=== PATIENT | female | born 1975 | race African-American/Black ===

== ENCOUNTER 2016-04-24 12:51 | Inpatient (IN) ==
--- NOTE | 2016-04-24 14:27 | PROVIDER DOCUMENTATION ---
Addendum entered and electronically signed by Brian Addison CRNP 19:02: Progress - PLAN OF CARE/RESULTS Progress/Plan/Lab Results: spoke with Dr. Prieto and he would like to wait and have Dr. Hughes place central line. - CONSULTS/PCP/HOSPITALIST Notification #1 *Consult/PCP/Hospitalist*: Dr. Hughes Time Discussed: 19:02 Consult Disposition: Will see in ED (will place central line in the ED.) Addendum entered and electronically signed by Brian Addison CRNP 18:26: Progress - CONSULTS/PCP/HOSPITALIST Notification #1 *Consult/PCP/Hospitalist*: Dr. Hughes Time Discussed: 18:20 Consult Disposition: other (will be in the OR for "awhile" please ask the ED physician if he is able to place.) Original Note: HPI-General Adult - General Chief Complaint: Extremity Pain Stated Complaint: HAND PAIN Time Seen by Provider: 04/24/16 13:55 Source: patient Allergies/Adverse Reactions: Patient Allergies Allergy/AdvReac Type Severity Reaction Status Date / Time No Known Allergies Allergy Verified 04/24/16 13:30 Home Medications: Home Medication List Medication Instructions Recorded Confirmed Last Taken Type Lisinopril 40 mg PO BID 10/10/14 04/24/16 04/24/16 History Clonidine [Catapres] 0.1 mg PO BID 11/08/14 04/24/16 04/24/16 History Hydrocodone/APAP 7.5 mg/325 mg 1 each PO Q6H PRN PRN #14 tablet 04/01/16 1 Week Ago Rx [[place]-7.5] Insulin Glargine [Lantus] 50 unit SUBQ QHS 04/24/16 04/24/16 2 Weeks Ago History - History of Present Illness -Gen Adult Nature of Presenting Problems: 40 year old AAF with DM, dialysis presents with c/o pain and purple lesions to right palm and bilateral fingers. pt reports swelling developed today with increased pain. pt reports she recently fractures her left ankle and is awaiting pinning by orthopedics. pt denies trauma. Location of Pain/Injury: reports: hand(s) (right hand) Pain Radiation: reports: no radiation Quality of Pain: reports: aching, dull Severity: reports: mild Onset/Duration: reports: 2 days ago, 3 days ago Timing: reports: still present, constant, getting worse Context/Activities at Onset: reports: none Review of Systems - Adult - REVIEW OF SYSTEMS - ADULT Constitutional: reports: no symptoms reported. denies: chills, fever, fatique Eyes: reports: no symptoms reported. denies: discharge, blurred vision, double vision Ears, Nose, Mouth & Throat: reports: no symptoms reported. denies: ear discharge, ear pain, nose pain, loose teeth, throat pain, throat swelling Cardiovascular: reports: no symptoms reported. denies: chest pain, heart murmur , irregular heart rate, palpitations, poor circulation, syncope Respiratory: reports: no symptoms reported. denies: chronic cough, cough, shortness of breath, wheezing Gastrointestinal: reports: see HPI. denies: abdominal pain, diarrhea, nausea, vomiting Genitourinary: reports: no symptoms reported. denies: dysuria, hematuria, urgency Musculoskeletal: reports: no symptoms reported. denies: bone pain, joint pain, joint swelling, neck pain Integumentary: reports: see HPI, skin sores/ulcer (right hand). denies: hives, hair loss, itching, mole changes, nail changes, rash, skin thickening Neurological: reports: no symptoms reported. denies: ataxia, numbness, seizure , tremors Psychiatric: reports: no symptoms reported Endocrine: reports: no symptoms reported Hematologic/Lymphatic: reports: no symptoms reported Allergic/Immunologic: reports: no symptoms reported All Other Systems: Reviewed and Negative Past History - Adult - PAST MEDICAL HISTORY-ADULT Review of Records: reports: Old Records Reviewed, Nursing Assessment Review, Medications Reviewed, Social history reviewed & non-contributory. Major Childhood Illnesses: reports: denies history Cardiovascular: reports: cardiac disease, CHF, HTN Respiratory: reports: asthma Gastrointestinal: reports: GERD Obstetrical/Gynecological: reports: denies history Genitourinary: reports: dialysis, kidney disease (CKD) Musculoskeletal: reports: other (right BKA) Neurological: reports: denies history Endocrine/Immune: reports: Diabetes Diabetes Type: Type 1 Diabetes controlled by:: Insulin Dependent Other Conditions: reports: denies history - PRIOR SURGERIES/PROCEDURES Surgical/Procedure History: reports: tonsillectomy, other (ear sx/dialysis shunt /BKA right leg) - PRIOR HOSPITALIZATIONS Prior Hospitalizations: reports: for other non-related - IMMUNIZATION STATUS Childhood Immunizations: See Nurse Assessment Flu Vaccine: See Nurse Assessment - FAMILY HISTORY Family History: reviewed, not pertinent - SOCIAL HISTORY Smoking: quit greater than 1 year, cigarettes Substance Use: none/never Alcohol Use Frequency: never Physical Exam-General - PHYSICAL EXAM-ADULT Initial Vital Signs Reviewed: Yes - CONSTITUTIONAL General Appearance: appears well, alert, moderate distress. negative: no apparent distress, mild distress, severe distress, cachetic, lethargic, slow to respond, obtunded, combative - EYES Eyes: pink conjunctivae. negative: conjuctival exudate, pale conjunctivae, sclera injected, scleral icterus, subconjunctival hemorrhage - HEAD, EARS, NOSE, MOUTH & THROAT HENMT: normocephalic/atraumatic, moist mucous membranes - NECK Neck: non-tender, full range of motion, supple, normal inspection. negative: C- spine tenderness, limited range of motion, tender lateral, tender midline - RESPIRATORY Respiratory: chest non-tender, lungs clear, normal breath sounds, no pleuratic chest pain, no respiratory distress, no accessory muscle use. negative: respiratory distress, decreased breath sounds, accessory muscle use, crackles, rales, rhonchi, stridor, wheezing - CARDIOVASCULAR Cardiovascular: normal peripheral pulses, regular rate, rhythm, no edema, no gallop, no JVD, no murmur - CHEST (BREASTS) Chest/Breast: deferred - GASTROINTESTINAL (ABDOMEN) Abdominal Exam: normal bowel sounds, non tender, soft. negative: distended, guarding, rigid, rebound, McBurney's point tenderness, Bearden's sign, obturator sign, prominent aortic pulsations, psoas, Rovsing's sign - GENITOURINARY Female Genitalia/Pelvic Exam: deferred Rectal Exam: deferred Hemoccult Exam: deferred - LYMPHATIC Lymphatic: no adenopathy - MUSCULOSKELETAL Back Exam: normal inspection, no CVA tenderness, no vertebral tenderness. negative: CVA tenderness, decreased range of motion, swelling, vertebral tenderness Extremity: normal capillary refill, pelvis stable, deformity, erythema (right anterior digit swelling), pulse deficit (decreased ulnar/radial pulses to right upper extremity, able to obtain with doppler), pedal edema (left lower), swelling, tenderness, other (right lower extremity BKA with; left ankle with swelling/tenderness/deformity, circulation, sensation intact, decreased ROM.). negative: non-tender, normal gait (pt has been using a wheelchair since left ankle), normal inspection, no pedal edema, no calf tenderness, abnormal NV exam , calf tenderness, inflammation, joint effusion, slow capillary refill Peripheral Pulses: radial (R): 1+ (obtained via doppler), radial (L): 3+, dorsalis-pedis (R): 3+, dorsalis-pedis (L): 0 (right BKA) - SKIN Integumentary: normal color, normal turgor, warm/dry, embolic lesions (right 2nd , 3rd, 4th distal digits, tenderness with palpatation, diffuse swelling of the hand/fingers.), swelling (right hand), tenderness (right hand), other (bruit/ thrill palpatated to right upper extremity dialysis shunt) - NEUROLOGIC Neurologic: grossly normal. negative: focal weakness, motor weakness, sensory deficit - PSYCHIATRIC Psych/Mental Status: normal mood/affect, normal thought content, normal thought process, oriented x 3 Progress - PLAN OF CARE/RESULTS Progress/Plan/Lab Results: Laboratory Tests 04/24/16 04/24/16 04/24/16 15:52 15:52 15:52 WBC 11.73 H RBC 3.28 L Hgb 10.4 L Hct 32.3 L MCV 98.5 MCH 31.7 H MCHC 32.2 L RDW Std Deviation 13.7 Plt Count 342 MPV 10.1 Immature Gran % (Auto) 0.3 Neut % (Auto) 76.4 H Lymph % (Auto) 12.0 L [place] % (Auto) 6.9 Eos % (Auto) 4.1 Baso % (Auto) 0.3 Immature Gran # (Auto) 0.03 Neut # (Auto) 8.97 H Lymph # (Auto) 1.41 [place] # (Auto) 0.81 H Eos # (Auto) 0.48 Baso # (Auto) 0.03 PT INR PTT (Actin FS) D-Dimer Sodium 135 L Potassium 5.0 Chloride 92 L Carbon Dioxide 19 L Anion Gap 24 BUN 62 H Creatinine 10.4 H* Estimated GFR/1.73 m2 5 BUN/Creatinine Ratio 6 Glucose 69 L Calculated Osmolality 286 Calcium 9.2 Total Bilirubin 0.35 AST 9 L ALT 8 L Alkaline Phosphatase 103 Creatine Kinase 42 Troponin T Total Protein 8.2 Albumin 3.2 L Globulin 5.0 Albumin/Globulin Ratio 0.6 Plasma Lactate 1.3 Urine Source Urine Color Urine Turbidity Urine pH Ur Specific [place] Urine Protein Ur Glucose (Stick) Ur Ketones (Stick) Urine Blood Urine Nitrite Urine Bilirubin Urobilinogen Dipstick Urine Leukocytes 04/24/16 04/24/16 04/24/16 15:52 15:52 15:52 WBC RBC Hgb Hct MCV MCH MCHC RDW Std Deviation Plt Count MPV Immature Gran % (Auto) Neut % (Auto) Lymph % (Auto) [place] % (Auto) Eos % (Auto) Baso % (Auto) Immature Gran # (Auto) Neut # (Auto) Lymph # (Auto) [place] # (Auto) Eos # (Auto) Baso # (Auto) PT 11.3 INR 1.07 PTT (Actin FS) 29.3 D-Dimer 1.12 H Sodium Potassium Chloride Carbon Dioxide Anion Gap BUN Creatinine Estimated GFR/1.73 m2 BUN/Creatinine Ratio Glucose Calculated Osmolality Calcium Total Bilirubin AST ALT Alkaline Phosphatase Creatine Kinase Troponin T 0.124 H Total Protein Albumin Globulin Albumin/Globulin Ratio Plasma Lactate Urine Source Urine Color Urine Turbidity Urine pH Ur Specific [place] Urine Protein Ur Glucose (Stick) Ur Ketones (Stick) Urine Blood Urine Nitrite Urine Bilirubin Urobilinogen Dipstick Urine Leukocytes 04/24/16 17:23 WBC RBC Hgb Hct MCV MCH MCHC RDW Std Deviation Plt Count MPV Immature Gran % (Auto) Neut % (Auto) Lymph % (Auto) [place] % (Auto) Eos % (Auto) Baso % (Auto) Immature Gran # (Auto) Neut # (Auto) Lymph # (Auto) [place] # (Auto) Eos # (Auto) Baso # (Auto) PT INR PTT (Actin FS) D-Dimer Sodium Potassium Chloride Carbon Dioxide Anion Gap BUN Creatinine Estimated GFR/1.73 m2 BUN/Creatinine Ratio Glucose Calculated Osmolality Calcium Total Bilirubin AST ALT Alkaline Phosphatase Creatine Kinase Troponin T Total Protein Albumin Globulin Albumin/Globulin Ratio Plasma Lactate Urine Source CLEAN CATCH Urine Color ORANGE Urine Turbidity HAZY Urine pH 8.5 Ur Specific [place] 1.011 Urine Protein 200 A Ur Glucose (Stick) NEGATIVE Ur Ketones (Stick) NEGATIVE Urine Blood SMALL A Urine Nitrite NEGATIVE Urine Bilirubin NEGATIVE Urobilinogen Dipstick NORMAL Urine Leukocytes LARGE A Orders Category Date Time Status Cardiac Monitoring DIRECTED Care 04/24/16 14:25 Active Finger Stick Blood Sugar (ED) DIRECTED Care 04/24/16 14:25 Active Nursing- MD Consult Request ROUTINE Care 04/24/16 17:27 Active Nursing- MD Consult Request ROUTINE Care 04/24/16 17:28 Active Saline Loc NOW Care 04/24/16 14:25 Active MD [Physician/Provider Consults] Routine Cons 04/24/16 17:26 Ordered MD [Physician/Provider Consults] Routine Cons 04/24/16 17:27 Ordered PICC Line Consult Routine Cons 04/24/16 15:41 Active cxr [CHEST-2 VIEWS] [RAD] Stat Exams 04/24/16 14:26 Completed BLOOD CULTURE [BLDCUL] Stat Lab 04/24/16 13:52 Results CBC WITH ELECTRONIC DIFF [HEME] Stat Lab 04/24/16 15:52 Completed CK PROFILE [SP CHEM] Stat Lab 04/24/16 15:52 Completed COMPREHENSIVE METABOLIC PANEL [CHEM] Stat Lab 04/24/16 15:52 Completed D-DIMER [CHEM] Stat Lab 04/24/16 15:52 Completed LACTATE, PLASMA [CHEM] Stat Lab 04/24/16 15:52 Completed PROTIME WITH INR [COAG] Stat Lab 04/24/16 15:52 Completed PTT [COAG] Stat Lab 04/24/16 15:52 Completed TROPONIN T Stat Lab 04/24/16 15:52 Completed URINALYSIS W/POSS RFLX CULT [URINALYSIS] Stat Lab 04/24/16 17:23 Results URINE DRUG SCREEN Stat Lab 04/24/16 17:23 Received Hydrocodone/APAP 7.5 mg/325 mg [[place]-7.5] Med 04/24/16 17:07 Discontinued 1 each .ROUTE .STK-MED ONE Hydrocodone/APAP 7.5 mg/325 mg [[place]-7.5] Med 04/24/16 17:06 Discontinued 1 each PO NOW ONE Pulse Oximetry Stat Oth 04/24/16 14:25 Active EKG [EKG] Stat Ther 04/24/16 14:25 Ordered Echo Spec/Color Dop W/O Contra [CV] Stat Ther 04/24/16 15:51 Ordered Vital Signs - 24 hr 04/24/16 04/24/16 12:53 17:03 Temperature 98.3 F Pulse Rate 82 81 Respiratory 18 21 Rate Blood Pressure 206/90 195/96 O2 Sat by Pulse 100 99 Oximetry - XRAY 1 XRAY Study: Chest Impression: Abnormal (cardiomegaly with pulmonary vascular congestion per Dr. Murphy) - CONSULTS/PCP/HOSPITALIST Notification #1 *Consult/PCP/Hospitalist*: Dr. Hughes (general surgery) Time Discussed: 17:36 Consult Disposition: other (is currently in the OR, left message to call ED for consult/central line placement) Departure - Departure Time of Disposition Order: 17:24 DIAGNOSIS: Pain in finger of both hands Disposition: ADMITTED INPATIENT 09 Certified Medical Emergency: Emergent Condition: Stable Referrals: Sonu Johns [Primary Care Provider] - Attestation - Physician/ THU Attestation Patient care was provided by Advanced Practice Provider:: Yes Advanced Practice Provider:: Brian Addison Advanced Practice Provider documentation review:: The Mid-level provider documentation, treatment plan and medical decision making was reviewed by the physician who agrees with all treatment and medical decision making by the MLP. The physician spent face to face time with patient:: Yes (@[phone])
--- NOTE | 2016-04-24 15:00 | ED EKG INTERP ---
EKG Interpretation - EKG Time of EKG reading by physician:: 14:45 EKG Read and Signed by:: Jeff Mckeon EKG Interpretation (*Must complete 3 of following elements*): Normal Rate: 82 Rhythm: NSR [place]: normal QRS: normal CT Interval: normal ST Wave: normal Attestation - Scribe Verification/Attestation Scribe:: [place] Acting as Scribe for:: Jeff Mckeon Scribe documention review:: This chart was documented by a scribe and accurately reflects the service the provider performed and the decisions made by the provider. Physician Attestation - Physician Attestation I, the provider, attest to the following statement:: Jeff Mckeon Physician documentation Attestation:: This documentation recorded by the scribe accurately reflects the service I personally performed and the decisions made by me.
--- NOTE | 2016-04-24 15:09 | Diag Imaging Result Document ---
PROCEDURE NAME: CHEST-2 VIEWS - 04/24/2016 CHEST X-RAY 2 VIEWS: COMPARISON: 11/16/2015. FINDINGS: Stable cardiomegaly and pulmonary vascular congestion. Stable linear atelectasis in the left mid lung. No pneumothorax or pleural effusion. IMPRESSION: Cardiomegaly with pulmonary vascular congestion.
[2016-04-24 16:15] LABS: MANUAL DIFF NEEDED? NO
[2016-04-24 16:20] LABS: BASO% 0.3 % (0.0-0.8); EOS# 0.48 X1000 (0.0-0.7); EOS% 4.1 % (0.0-10.0); HEMATOCRIT 32.3 % (37.0-47.0); HEMOGLOBIN 10.4 g/dL (12.0-16.0); IMM GRAN# 0.03 X1000 (0.0-0.04); IMM GRAN% 0.3 % (0.0-0.5); LYMPH# 1.41 X1000 (1.2-3.4); MCH 31.7 PG (27-31); MCHC 32.2 g/dL (33-37); MCV 98.5 FL (81-99); MONO# 0.81 X1000 (0.11-0.59); MONO% 6.9 % (1.7-9.3); MPV 10.1 FL (7.4-10.4); NEUT% 76.4 % (42.2-75.2); PLT 342 X1000 (130-400); RBC 3.28 XMIL (4.2-5.4)
[2016-04-24 16:29] LABS: INR 1.07; PROTIME 11.3 Seconds (9.2-11.7); PTT 29.3 Seconds (22.0-36.0)
[2016-04-24] MEDS ORDERED: NORCO-7.5 PO ONE (17:06)
[2016-04-24] MEDS ORDERED: NORCO-7.5 ONE (17:07)
[2016-04-24 17:11] LABS: ALBUMIN 3.2 g/dL (3.5-5.0); CALCIUM 9.2 mg/dL (8.8-10.2); TOTAL PROTEIN 8.2 g/dL (6.3-8.3)
[2016-04-24 17:19] LABS: TOTAL BILIRUBIN 0.35 mg/dL (0.20-1.00)
[2016-04-24 17:24] LABS: URINE SOURCE CLEAN CATCH
[2016-04-24 17:31] LABS: BILIRUBIN URINE NEGATIVE (NEGATIVE); BLOOD URINE SMALL (NEGATIVE); COLOR ORANGE; GLUCOSE URINE NEGATIVE (NEGATIVE); LEUKOCYTES URINE LARGE (NEGATIVE); NITRITE URINE NEGATIVE (NEGATIVE); PH URINE 8.5; PROTEIN URINE 200 mg/dL (NEGATIVE); SP GRAVITY URINE 1.011; TURBIDITY URINE HAZY (CLEAR); UROBILINOGEN URINE NORMAL (NORMAL)
[2016-04-24 17:32] LABS: URINE MICRO REVIEW NEEDED? YES
[2016-04-24 17:33] LABS: UR EPITHELIAL CELLS <10 /HPF (<10); URINE BACTERIA 3+ /HPF; URINE CULTURE NEEDED? YES; URINE RBC <10 /HPF (<10); URINE WBC TNTC /HPF (<10)
[2016-04-24 17:37] LABS: UR AMPHETAMINES QUAL NONE DETECTED (NONE DETECT); UR BARBITUATES QUAL NONE DETECTED (NONE DETECT); UR BENZODIAZEPIN QUAL NONE DETECTED (NONE DETECT); UR CANNABINOIDS QUAL NONE DETECTED (NONE DETECT); UR COCAINE QUAL PRESUMPTIVE POSITIVE (NONE DETECT); UR METHADONE QUAL NONE DETECTED (NONE DETECT); UR OPIATES QUAL NONE DETECTED (NONE DETECT); UR OXYCODONE QUAL NONE DETECTED (NONE DETECT); UR PCP QUAL NONE DETECTED (NONE DETECT)
[2016-04-24 17:47] LABS: URINE CASTS NONE SEEN; URINE CRYSTALS NONE SEEN; URINE SMALL ROUND CELLS RENAL PRESENT
--- NOTE | 2016-04-24 19:02 | HISTORY AND PHYSICAL ---
PRIMARY CARE PHYSICIAN: Sonu Johns M.D. CHIEF COMPLAINT: Operable lesions in right palm and bilateral fingers. HISTORY OF PRESENT ILLNESS: This is a 40-year-old, female with a past medical history of diabetes, hypertension, and on dialysis, who presented to the emergency department complaining of pain in both hands and purple lesions, to right palm and also both bilateral fingers. Patient reports that those lesions started appearing in the last 4 weeks but today both hands started getting swollen with increase of pain so she decided to come to the emergency department today. She denies any fever, any weight loss. She denies using any IV drugs. It is important to remark that the UDS today is positive for cocaine. After asking her many times she admits to using cocaine 1-2 times per month. Also she uses marijuana. She also denies using any IV drugs. She is not complaining of any chest pain, any palpitations. She was supposed to have hemodialysis today but she decided to come to the emergency department today for this reason. The patient is being admitted for further evaluation and treatment. PAST MEDICAL HISTORY: 1. Diabetes type 2. 2. Uncontrolled hypertension. 3. End-stage renal disease on hemodialysis. PAST SURGICAL HISTORY: 1. Right [id number] amputation. 2. Ankle fracture that was seen by Dr. Benites. ALLERGIES: She denies any drug allergies. SOCIAL HISTORY: She admits to using cocaine at least twice per month, probably more, and uses marijuana. She reports that she drinks liquor 3 times per mom. She lives by herself. FAMILY HISTORY: Positive for diabetes and cancer. REVIEW OF SYSTEMS: Eleven systems were reviewed and all symptoms are related to H and P. PHYSICAL EXAMINATION: VITAL SIGNS: Temperature 98.3 degrees, heart rate 81, respiratory rate 21, blood pressure 195/86, O2 saturation 99% on room air. GENERAL EXAMINATION: This is a chronically ill-looking, also looking older than her age. female lying in bed, in no acute distress. HEENT: Head is normocephalic, atraumatic. Anicteric sclerae. Pale conjunctivae. Mucous membranes moist. NECK: Supple. No JVD noted. No carotid bruits. No lymphadenopathy. No thyromegaly. CARDIOVASCULAR: S1 and S2 heard. No murmurs, gallops, or rubs. Regular rate and rhythm. RESPIRATORY: Clear bilaterally to auscultation. No work of breathing or using accessory muscles. ABDOMEN: Soft, nontender to palpation. Bowel sounds present. No organomegaly. EXTREMITIES: Right [id number]-[id number] amputation. The left ankle is covered by dressing. NEUROLOGICAL EXAMINATION: Patient alert and oriented x3. Able to move 4 extremities. Cranial nerves 2-12 grossly normal. LABORATORY DATA: White cell count 11.73, hemoglobin 10.4, hematocrit 32.3, platelets 342,000. Platelets Z-42. BMP is remarkable for BUN 62, creatinine 10.4, and troponin 0.1 24. Urinalysis shows too numerous to count white cell count with nitrite negative about 3+. The urine is positive for cocaine. ASSESSMENT: 1. Endocarditis suspected. 2. End-stage renal disease on hemodialysis. 3. Uncontrolled hypertension. 4. Diabetes mellitus type 2. PLAN: 1. The patient is admitted to the hospital because she developed lesions in about a month suspicious for embolic phenomenon secondary to possible endocarditis. The fact that this patient is still using drugs, which she denied the first time that we asked her, raises the possibility of infection secondary to either IV drug abuse or because of hemodialysis 3 times per week. In any case what we are going to do is order blood cultures x2. We are going to get an IV access, in this case a central line because the patient is hard to stick. We are going to start vancomycin after we get blood cultures. Also we are going to order a transesophageal echo to see if there is any vegetation. 2. For uncontrolled blood pressure, we are going to use hydralazine and labetalol p.r.n. 3. For diabetes mellitus, we will continue with Lantus and we will add Humalog sliding scale insulin. 4. For end-stage renal disease on hemodialysis, we will consult Dr. Chadwick to restart hemodialysis here in the hospital. 5. For the fracture of the left ankle, we will consult Wound Care.
[2016-04-24 19:24] LABS: HEMOGLOBIN A1C 4.4 % (4.8-6.0)
--- NOTE | 2016-04-24 20:10 | OPERATIVE NOTE ---
PROCEDURE DATE: 04/24/2016 PREOPERATIVE DIAGNOSIS: 1. Phlebosclerosis. 2. Possible endocarditis. POSTOPERATIVE DIAGNOSIS: 1. Phlebosclerosis. 2. Possible endocarditis. PROCEDURES: Ultrasound-guided right femoral vein triple-lumen catheter placement. SURGEON: Aguilar Hughes MD. TEACHER VISUALLY IMPAIRED: None. ANESTHESIA: Local administered by the surgeon. COMPLICATIONS: None at time of dictation. INTRAOPERATIVE FINDINGS: Ultrasound showed a right femoral vein of sufficient size to accommodate a central line. Ultrasound also showed the wire going into the vein. BRIEF HISTORY: The patient is a 40-year-old, female presented with pain in her finger. She is currently being worked up for possible endocarditis with septic possibility. They had a difficult time finding venous access on her for IV fluids and antibiotics. Therefore. I was asked to place a central line. Given the patient's possibility of endocarditis, I elected to not use her neck, potential contamination near the cardiac valves. She had previous amputation of her right leg and had a dilated vein there and felt that was the safest approach. The risks, benefits, alternatives for procedure were discussed. She voiced understanding and wished to proceed with procedure. DESCRIPTION OF PROCEDURE: After informed consent was obtained, patient remained in her ER bed. The right groin was prepped and draped in sterile fashion. After the formal time-out, we used the ultrasound to identify the right femoral vein. It was a compressible, no obvious Deep venous thromboses. We used local anesthetic to anesthetize the skin after prepping and draping the area in a sterile fashion. After using local anesthetic, I was able to cannulate the right femoral vein and pass a wire. I was able to see on ultrasound the wire passing into the vein. I then dilated up the tract in the typical Seldinger technique and placed the central line in place. All ports aspirated and flushed blood easily. We secured it in place and the nurse place a sterile dressing.
[2016-04-24] MEDS ORDERED: APRESOLINE IV PRN (20:31)
[2016-04-24] MEDS ORDERED: VANCOMYCIN IV PER PHARMACY MISC SCH (20:31)
[2016-04-24] MEDS ORDERED: HUMALOG SUBQ ONE (20:31)
[2016-04-24] MEDS ORDERED: VANCOMYCIN 1 GM/NS 250 ML IV ONE (21:00)
[2016-04-24] MEDS: D50W SYRINGE ONE (21:23)
[2016-04-24] MEDS: LANTUS SUBQ SCH (21:42)
[2016-04-24] MEDS: PRINIVIL PO SCH (21:58)
[2016-04-24] MEDS: NORCO-7.5 PO PRN (21:58)
[2016-04-24] MEDS: HEPARIN SUBQ SCH (21:59)
[2016-04-24] MEDS: CATAPRES PO SCH (21:59)
[2016-04-25] MEDS: HEPARIN SUBQ SCH ×3 (04:52→20:40)
[2016-04-25] MEDS: NORCO-7.5 PO PRN ×2 (04:59→14:34)
[2016-04-25] MEDS: ZOFRAN IV PRN (04:59)
[2016-04-25] MEDS: D50W SYRINGE ONE (05:00)
[2016-04-25] MEDS ORDERED: D50W SYRINGE ONE (05:08)
[2016-04-25] MEDS ORDERED: PNEUMOVAX 23 IM ONE (05:40)
[2016-04-25] MEDS ORDERED: FLUZONE QUAD 2016-2017 SYRINGE IM ONE (05:40)
[2016-04-25 06:04] LABS: MANUAL DIFF NEEDED? NO
[2016-04-25] MEDS: PRILOSEC PO SCH (06:07)
[2016-04-25 06:46] LABS: BASO% 0.2 % (0.0-0.8); CALCIUM 8.8 mg/dL (8.8-10.2); EOS% 4.9 % (0.0-10.0); HEMATOCRIT 27.5 % (37.0-47.0); HEMOGLOBIN 8.7 g/dL (12.0-16.0); IMM GRAN# 0.03 X1000 (0.0-0.04); IMM GRAN% 0.2 % (0.0-0.5); LYMPH# 1.42 X1000 (1.2-3.4); LYMPH% 11.6 % (20.5-51.1); MCH 31.6 PG (27-31); MCHC 31.6 g/dL (33-37); MONO% 5.7 % (1.7-9.3); MPV 10.2 FL (7.4-10.4); NEUT% 77.4 % (42.2-75.2); PLT 331 X1000 (130-400); POTASSIUM 5.1 mmol/L (3.5-5.1); RBC 2.75 XMIL (4.2-5.4)
[2016-04-25] MEDS ORDERED: NS 2,000 ML MISC PRN (06:57)
[2016-04-25] MEDS ORDERED: TIGHT: 0.2 ML/HR MISC PRN (06:57)
[2016-04-25] MEDS ORDERED: HEPARIN IV PRN (06:57)
[2016-04-25] MEDS ORDERED: VANCOMYCIN 1 GM/NS 250 ML IV SCH (07:00)
[2016-04-25] MEDS ORDERED: NS 2,000 ML ONE (09:36)
[2016-04-25] MEDS ORDERED: HEPARIN ONE (09:36)
--- NOTE | 2016-04-25 11:05 | CONSULTATION ---
DATE OF CONSULTATION: 04/25/2016 INDICATION FOR THE CONSULTATION: Possible endocarditis. HISTORY OF PRESENT ILLNESS: Ms Wheat is a 40-year-old black female, who has a history of end- stage renal disease and poor control of her blood pressure. She presented for complaints of right hand pain and swelling and lesions towards the distal portions of her digits. She reports the sores started appearing around 3-4 days ago. She has had no fevers. She reports no IV drug use, but she does participate in dialysis 3 times a week. She has been using marijuana and cocaine on a periodic basis. She uses cocaine via snorting. She reports no episodes of fevers, no coughs, no other infectious type symptoms. PAST MEDICAL HISTORY: 1. Type 2 diabetes. 2. Poor control of her blood pressure. 3. End-stage renal disease. SOCIAL HISTORY: Positive for cocaine use, marijuana use. She drinks liquor occasionally. Lives alone. FAMILY HISTORY: Significant for diabetes. REVIEW OF SYSTEMS: A 10 system review of systems is negative, except for those mentioned in the HPI. PHYSICAL EXAMINATION: Vital Signs: During this hospitalization she has been afebrile. Blood pressure is 163/70, heart rate is 70. General: No acute distress. She is somewhat ill appearing, appears older than stated age. HEENT: Oropharynx is moist. Poor dentition. Eye examination shows pink conjunctivae, white sclerae. Neck: Examination shows no obvious thyromegaly or thyroid tenderness. Cardiovascular: She is in a regular rate and rhythm. She has no obvious murmurs. She has no S3. She has bilateral lower extremity edema, left worse than right. She does have a chronic left ankle injury. Chest exam: Has some bilateral basilar rales. No increased work of breathing. Abdomen: Soft, nontender, nondistended. She has no obvious organomegaly. Skin Exam: Warm and dry throughout. She does have multiple excoriations in her bilateral upper extremities. She has some small, roughly 0.5 cm or so diameter, darkened lesions that appear embolic in etiology to her distal fingertips of the right hand. Neurological: She is moving all extremities well. Cranial nerves 2-12 are intact. Psychiatric: Alert, oriented and pleasant. She has normal mood and affect. PERTINENT DATA: Chest x-ray shows evidence for cardiomegaly and pulmonary vascular congestion. Her laboratory data demonstrates a white count of 12.2, hematocrit 27.5, platelet count is 331. She has a slight left shift. Sodium is 134, potassium 5.1, BUN 71, creatinine 10.4. Her cardiac enzymes were checked yesterday and were 0.124. They have been chronically positive over several checks in 2014, 2015 and 2017. She was positive for cocaine. ASSESSMENT: 1. Possible endocarditis. 2. End-stage renal disease. 3. Illicit drug use. PLAN: We will proceed with transesophageal echo tomorrow. We will be checking a transthoracic echo today. Risks, benefits and alternatives of procedure have been explained to the patient. She agrees to proceed. She will be made n.p.o. for the study tomorrow.
[2016-04-25] MEDS: PRINIVIL PO SCH ×2 (14:34→20:40)
[2016-04-25] MEDS: CATAPRES PO SCH ×2 (14:34→20:41)
--- NOTE | 2016-04-25 15:33 | CONSULTATION ---
lDATE OF CONSULTATION: 04/25/2016 REASON FOR ADMISSION: Question of endocarditis, questionable embolic phenomenon to the hands, uncontrolled blood pressure. REASON FOR CONSULTATION: End-stage renal disease. CONSULTING PHYSICIAN: Dr. Mccormick. HISTORY OF PRESENT ILLNESS: This is a 40-year-old female, well known to our service for end-stage renal disease on hemodialysis on a Friday, , Friday schedule. She presented to the emergency room secondary to pain in bilateral hands along with purple, painful lesions to the finger tips and palms of the hands. The patient states that these areas have been present for at least a month. She stated that her pain got worse and so she came to the emergency room. She denies any headache, dizziness, any chest pain, any shortness of breath. She denies any fever, any night sweats. She does have a history of positive cocaine use. This is not IV use. This is nostril. She has had issues with her blood sugars being low while she has been in the hospital, even down below 30 at times. She underwent an echocardiogram on admission. She is to undergo a CLAUDY tomorrow. We have been asked to see her for her hemodialysis management. PAST MEDICAL HISTORY: 1. Diabetes type 2, uncontrolled. 2. Hypertension. 3. End-stage renal disease on hemodialysis. 4. Iron deficiency anemia. 5. Anemia secondary to ESRD 6. Protein calorie malnutrition. 7. Hyperparathyroidism. 8. Osteodystrophy. 9. Hyperphosphatemia. PAST SURGICAL HISTORY: She has had a previous tunnel dialysis catheter to the chest wall. She has a current AV fistula to the right upper arm. She has had a right BKA. She has had debridement of the BKA secondary to infection. She has had a tonsillectomy. ALLERGIES: No known drug allergies. HOME MEDICATIONS: Lisinopril, clonidine, [place], Lantus. FAMILY HISTORY: Diabetes and cancer. SOCIAL HISTORY: Positive for cocaine and marijuana use. Positive for ETOH. Denies smoking. REVIEW OF SYSTEMS: Pertinent positives noted above. PHYSICAL EXAMINATION: Vital Signs: Temperature 98.6 degrees, pulse 70, respiratory rate 18, blood pressure 163/70. Intake and output: Intake 240 mL. Output not measured. General: This is a chronically ill-appearing, middle-aged female, sitting up in bed, currently eating. She is awake and alert, in no acute distress. Unable to give me an appropriate history. HEENT: Normocephalic, atraumatic. ROSA MARIA, conjunctivae pale. Oral mucosa moist. Dentition fair. Neck: Supple. There is no JVD. Trachea midline. Cardiovascular: Regular rate and rhythm. There is no murmur or gallop appreciated. No rub noted. Pulmonary: She has equal excursion. She is clear bilaterally. There is no increased work of breathing. She is on room air. Abdomen: Soft. Positive bowel sounds. Nontender. : Not inspected. She has minimal void. Hemodialysis assist. Extremities: Right BKA. Left ankle with a dressing. No pretibial edema. Integumentary: Skin is warm and dry otherwise without rash or lesion, aside from the above noted purple lesions to finger tips and palms of the hand. Neurologic: Grossly nonfocal. She wears glasses. LAB DATA: WBC of 12.2, hemoglobin 8.7, hematocrit 27.5, platelet count of 331, 000. Sodium 134, potassium 5.1, chloride 91, CO2 20, BUN 71, creatinine 2.4, calcium 8.8. Her original echo has not been read yet. UDS positive for cocaine. Urinalysis with 2+ protein, large leukocytes, too numerous to count white blood cells. IMAGING: Chest x-ray: Cardiomegaly and pulmonary vascular congestion. This was prior to dialysis. ASSESSMENT AND PLAN: 1. End-stage renal disease on hemodialysis. She normally dialyzes on a Friday, Friday, Friday schedule. She did not dialyze yesterday. We will plan to dialyze her tomorrow to get her back on schedule. 2. Electrolytes, acid-base balance, anemia. These were stable prior to dialysis. We will check labs again in the morning and adjust the bath as needed. 3. Fluid volume. She is not overloaded. 4. Blood pressure remains mildly elevated. She has Apresoline p.r.n. Her Prinivil was already restarted. 5. If CLAUDY is negative, will need vascular studies of right arm. rg Seen, data reviewed, discussed with Keith Rivers on 04/25/16. I agree with the above assessment and plan of care. rg Dictated by PHILL Chowdary for Emilio Chadwick MD [facility]
[2016-04-25] MEDS: SANTYL OINT TOP SCH (18:04)
--- NOTE | 2016-04-25 19:02 | ECHO REPORT ---
ORDER DATE: 04/24/2016 INTERPRETING PHYSICIAN: Dr. Conway REQUESTING PHYSICIAN: CLINICAL INDICATIONS: A 40-year-old female; hemodialysis, diabetes, hypertension. M-MODE MEASUREMENTS: Right ventricle: 3.1 cm. Left ventricle end diastole: 4.1 cm. Left ventricle end systole: 2.7 cm. Posterior wall: 1.2 cm. Interventricular septum: 1.1 cm. Left atrium: 4.2 cm. Aortic root: cm. SUMMARY OF 2-DIMENSIONAL IMAGING: The right ventricle is mildly enlarged. The left ventricle shows normal function. Ejection fraction 60%. The chamber is markedly dilated. The left atrium is mildly enlarged. The aortic valve has 3 cusps. They open normally. Color flow mapping indicates a mild degree of regurgitation. The pulmonic valve looks normal. Color flow mapping indicates a mild degree of regurgitation. The tricuspid valve looks normal. Color flow mapping indicates a mild degree of regurgitation. The inferior vena cava is mildly enlarged. Pulmonary pressure estimated at 53 mmHg. The mitral valve looks normal. Color flow mapping unremarkable. Pulse wave Doppler of mitral inflow is normal. Tissue Doppler of septal and lateral mitral annulus averages 7 cm per second. Pulmonary venous flow shows some predominance of the diastolic component. There is no pericardial effusion, masses or thrombus. This study was of very good quality. IMPRESSION: In summary, this study shows: 1. Significantly enlarged left ventricle with normal function. Ejection fraction is 60%. 2. No evidence of significant diastolic dysfunction. 3. Mild degree of tricuspid regurgitation. Pulmonary pressure 53 mmHg. 4. Very mild degree of pulmonic and aortic regurgitation. This study is consistent with a history of patient being on dialysis.
[2016-04-25] MEDS: LANTUS SUBQ SCH (20:42)
[2016-04-26] MEDS: DEMEROL IV PRN ×5 (01:30→22:14)
[2016-04-26 03:41] LABS: MANUAL DIFF NEEDED? NO
[2016-04-26 03:48] LABS: BASO% 0.3 % (0.0-0.8); EOS# 0.56 X1000 (0.0-0.7); EOS% 5.3 % (0.0-10.0); HEMATOCRIT 28.3 % (37.0-47.0); LYMPH# 1.44 X1000 (1.2-3.4); LYMPH% 13.6 % (20.5-51.1); MCH 31.9 PG (27-31); MCHC 31.8 g/dL (33-37); MCV 100.4 FL (81-99); MONO# 1.01 X1000 (0.11-0.59); MONO% 9.6 % (1.7-9.3); MPV 9.8 FL (7.4-10.4); NEUT% 71.2 % (42.2-75.2); PLT 336 X1000 (130-400); RBC 2.82 XMIL (4.2-5.4)
[2016-04-26 03:59] LABS: CALCIUM 8.7 mg/dL (8.8-10.2); POTASSIUM 5.7 mmol/L (3.5-5.1)
[2016-04-26] MEDS: PRILOSEC PO SCH ×2 (05:30→06:56)
[2016-04-26] MEDS: HEPARIN SUBQ SCH ×3 (05:30→20:17)
--- NOTE | 2016-04-26 05:52 | PROGRESS NOTE ---
DATE: 04/25/2016 SUBJECTIVE: The patient is feeling fine. Denies any fever, chills, nausea, or vomiting. She reports still feeling tired. OBJECTIVE: Vital Signs: Temperature 98.6 degrees, heart rate 81, respiratory rate 16, blood pressure 165/66. O2 saturation 100% on room air. General Examination: This is a chronically ill appearing, and also looking older than his age, 40-year-old female lying in bed, in no acute distress. HEENT: Head is normocephalic, atraumatic. Anicteric sclerae and pale conjunctivae. Mucous membranes moist. Neck: Was supple. No jugular venous distention noted. No carotid bruits. No lymphadenopathy. No thyromegaly. Cardiovascular Examination: S1, S2 heard. No murmurs, gallops, or rubs. Regular rate and rhythm. Respiratory Examination: Clear bilaterally to auscultation. No work of breathing or using accessory muscles. Abdomen: Soft, nontender to palpation. Bowel sounds present. No organomegaly. Extremities: No clubbing, cyanosis, or edema. Peripheral pulses present in both legs. The left is covered by a dressing and there is a right [id number] amputation. Neurological Examination: Patient alert and oriented x3. Moves 4 extremities. LABORATORY DATA: None from today. ASSESSMENT AND PLAN: 1. Suspected endocarditis. 2. End-stage renal disease on hemodialysis. 3. Uncontrolled hypertension. 4. Diabetes mellitus type 2. The patient was admitted to the hospital because of history of drug abuse and also some lesions of both fingers and palm, very suspicious for endocarditis so [employer] was consulted. The patient is going to have transesophageal echo tomorrow. Also, blood cultures are negative. At least on the 1st day. Urine cultures positive for gram-positive cocci. In any case, we will see what the echocardiogram shows. Also, the urine culture shows infections. We will see what the final report shows.
[2016-04-26] MEDS: NORCO-7.5 PO PRN ×3 (07:23→20:17)
[2016-04-26] MEDS: ZOFRAN IV PRN (07:25)
--- NOTE | 2016-04-26 09:36 | PROGRESS NOTE ---
DATE: 04/26/2016 SUBJECTIVE: She is complaining of pain in the right hand. OBJECTIVE: Vital Signs: Blood pressure 165/77, heart rate 78, respiration 18, afebrile. General: She is in no distress, though she is in some pain. Skin: Warm and dry. No change in the right hand. Conjunctivae are pink. Neck: Neck veins are not distended. Heart: Regular without gallops. Lungs: Have equal breath sounds without crackles. Abdomen: Soft, nontender. Extremities: Have minimal edema. No clubbing or cyanosis. LABORATORY DATA: Sodium 134, potassium 5.7, chloride 93, bicarbonate 28, BUN 49, creatinine 7.9. IMPRESSION: Right hand pain: She did have positive blood cultures. She has a planned transesophageal echocardiogram today. I am concerned that her hand is ischemic related to her access. I will ask Dr. Contreras to examine her arm and give his opinion about whether this is ischemic. Her potassium is marginally elevated today. No intervention. Plan dialysis tomorrow.
[2016-04-26] MEDS: PRINIVIL PO SCH ×2 (09:40→20:17)
[2016-04-26] MEDS: CATAPRES PO SCH ×2 (09:40→20:17)
[2016-04-26] MEDS ORDERED: XYLOCAINE 4% TOPICAL SOLUTION ONE (09:42)
[2016-04-26] MEDS ORDERED: SODIUM CHLORIDE 0.9% 10 ML ONE (09:42)
[2016-04-26] MEDS ORDERED: HURRICAINE SPRAY (DOSE) ONE (09:42)
[2016-04-26] MEDS ORDERED: HURRICAINE SPRAY ONE (09:46)
[2016-04-26] MEDS ORDERED: NS 250 ML ONE (10:01)
[2016-04-26] MEDS ORDERED: CLAVE TWINSITE 32 IN 11959 ONE (10:01)
[2016-04-26] MEDS ORDERED: CLAVE ANES SET 100 IN 11965 ONE (10:01)
--- NOTE | 2016-04-26 11:09 | ECHO REPORT ---
ORDER DATE: 04/26/2016 PROCEDURE: Transesophageal echocardiogram. INDICATIONS: Cardiology was consulted and a transesophageal echocardiogram requested to rule out vegetation. DESCRIPTION OF PROCEDURE IN DETAIL: Patient was brought to the cardiac catheterization laboratory. Informed consent was obtained from the patient. The patient's oropharynx was anesthetized using lidocaine swish and swallow and Cetacaine spray. Anesthesia was present. Propofol was given. Please see detailed anesthesia records. A transesophageal probe was easily passed into the esophagus and ultrasound pictures were obtained. FINDINGS: 1. Normal left ventricular cavity size. Estimated ejection fraction of 55%. 2. Aortic valve leaflets are trileaflet. 3. Mitral valve was normal. There is mild mitral annular calcification. 4. Tricuspid valve was normal. 5. Pulmonic valve was normal. 6. Left atrium was normal. Left atrial appendage was normal right. Atrium was normal. 7. Descending aorta had layered plaque. 8. Doppler studies revealed there is no aortic stenosis. There is mild aortic regurgitation. 9. There is mild mitral regurgitation. 10. Trace to mild tricuspid regurgitation. 11. Mild pulmonary regurgitation. CONCLUSIONS: 1. Normal left ventricular cavity size. Estimated ejection fraction of 55%. There is mild aortic regurgitation and mild mitral regurgitation. 2. There is no vegetation or intracardiac mass or thrombus noted. 3. Left atrial appendage was normal.
[2016-04-26] MEDS ORDERED: VERSED ONE (11:18)
[2016-04-26] MEDS ORDERED: DIPRIVAN 1% ONE (11:19)
[2016-04-26] MEDS: SANTYL OINT TOP SCH (14:33)
--- NOTE | 2016-04-26 15:40 | CONSULTATION ---
DATE OF CONSULTATION: 04/26/2016 CHIEF COMPLAINT: Punctate spots of necrosis of the fingers. HISTORY: This is a 40-year-old, black female that is diabetic and has end-stage renal disease. She has had a 3-week history of some ischemic spots on her fingers. She also reports some pain. The pain is worse on the right than the left. There are a few spots on the left as well, but not to the same degree as the right. She has a fistula in the right upper arm that was constructed 2 years ago in April 2014. It has matured well and is serving her well as an access. OTHER MEDICAL PROBLEMS: Include type 2 diabetes, hypertension. PREVIOUS SURGERY: Includes a right below-knee amputation. Ankle fracture, treated by Dr. Benites, and the right brachiocephalic fistula by Dr. Contreras. MEDICATIONS: Listed. ALLERGIES: No known drug allergies. SOCIAL HISTORY: She does occasionally use cocaine and marijuana, and she does drink alcohol. FAMILY HISTORY: Pertinent for diabetes and malignancy. REVIEW OF SYSTEMS: As noted above. EXAM: Vital Signs: Afebrile. Heart rate 79, blood pressure 175/79. Lungs: Bilateral breath sounds. Heart: Regular rate rhythm. Extremities: She has a fistula in the right upper arm with a good thrill. She has a 1+ left radial pulse. I do not palpate a right radial pulse. The right hand is slightly cool. ASSESSMENT: Her fistula may have progressed to the point that she is stealing enough blood to cause symptoms in her fingers. I will get an arterial imaging of her right hand then forearm, as well as the PVRs to determine the amount of flow discrepancy in her arms.
--- NOTE | 2016-04-26 15:48 | PROGRESS NOTE ---
DATE: 04/26/2016 SUBJECTIVE: Patient reports feeling fine. No chills, no fever. OBJECTIVE: Vital Signs: Temperature 97.5 degrees, heart rate 79, respiratory rate 18, blood pressure 175/79, and O2 saturation 92% on room air. General Examination: This is a chronically ill-appearing, looking older than her age, 40-year-old, female, lying in bed in no acute distress. HEENT: Head is normocephalic, atraumatic. Anicteric sclerae and pale conjunctivae. Mucous membranes moist. Neck: Supple. No JVD noted. No carotid bruits. No lymphadenopathy. No thyromegaly. Cardiovascular exam: S1 and S2 heard. No murmurs, gallops, or rubs. Regular rate and rhythm. Respiratory exam: Clear bilaterally to auscultation. No work of breathing or using accessory muscles. Abdomen: Soft, nontender to palpation. Bowel sounds present. No organomegaly. Extremities: No clubbing, cyanosis, or edema. Peripheral pulses present in both legs. The left leg is covered by dressing. There is a right [id number] amputation. Also, there are purple lesions on both fingertips. Neurological exam: Patient alert and oriented x3. Able to move 4 extremities. Cranial nerves 2 through 12 grossly normal. LABORATORY DATA: The CBC indicates a white cell count 10.55, hemoglobin 9.0, hematocrit 28.3, platelets 336. Sodium 134, potassium 5.7, chloride 93, bicarbonate 28, BUN 49, creatinine 7.9. ASSESSMENT: 1. Suspected endocarditis. 2. End-stage renal disease on hemodialysis. 3. Uncontrolled hypertension. 4. Diabetes mellitus type 2. PLAN: The patient was admitted to the hospital for lesions in both hands very suspicious for endocarditis. We have consulted field assistant for performing transesophageal echo and results came back indicates that there is no vegetation noted on the transesophageal echo. Blood cultures: One out of three is positive for gram-positive cocci, but it could be a contaminant so will wait for the final result of blood cultures. For these lesions that this patient has on both hands, there was a concern raised by Dr. Chadwick that could be related to some problem with the IV access for hemodialysis, so he has consulted Dr. Diego Contreras in that regard. From my standpoint, if blood cultures are negative or we confirm that culture is positive for Staphylococcus epididymis and is considered a contaminant, we may discharge this patient.
[2016-04-26] MEDS: LANTUS SUBQ SCH (21:30)
[2016-04-27] MEDS: DEMEROL IV PRN ×2 (02:18→06:50)
[2016-04-27] MEDS: NORCO-7.5 PO PRN ×3 (03:45→17:39)
[2016-04-27 05:47] LABS: MANUAL DIFF NEEDED? NO
[2016-04-27 06:17] LABS: BASO% 0.3 % (0.0-0.8); EOS# 0.46 X1000 (0.0-0.7); EOS% 4.1 % (0.0-10.0); HEMATOCRIT 30.3 % (37.0-47.0); HEMOGLOBIN 9.4 g/dL (12.0-16.0); IMM GRAN# 0.02 X1000 (0.0-0.04); IMM GRAN% 0.2 % (0.0-0.5); LYMPH% 10.8 % (20.5-51.1); MCH 31.4 PG (27-31); MCV 101.3 FL (81-99); MONO# 0.91 X1000 (0.11-0.59); MONO% 8.2 % (1.7-9.3); MPV 10.3 FL (7.4-10.4); NEUT% 76.4 % (42.2-75.2); PLT 333 X1000 (130-400); RBC 2.99 XMIL (4.2-5.4)
[2016-04-27 06:18] LABS: CALCIUM 8.5 mg/dL (8.8-10.2)
[2016-04-27 06:20] LABS: POTASSIUM 6.3 mmol/L (3.5-5.1)
[2016-04-27] MEDS ORDERED: D50W SYRINGE ONE (06:39)
[2016-04-27] MEDS ORDERED: HUMULIN R ONE (06:40)
[2016-04-27] MEDS: HEPARIN SUBQ SCH ×2 (06:50→15:22)
[2016-04-27] MEDS: PRILOSEC PO SCH (06:50)
[2016-04-27] MEDS ORDERED: NS 2,000 ML MISC PRN (08:20)
[2016-04-27] MEDS ORDERED: TIGHT: 0.2 ML/HR MISC PRN (08:20)
[2016-04-27] MEDS ORDERED: HEPARIN IV PRN (08:20)
[2016-04-27] MEDS: CATAPRES PO SCH (08:33)
[2016-04-27] MEDS: PRINIVIL PO SCH (08:33)
[2016-04-27] MEDS: SANTYL OINT TOP SCH (08:34)
[2016-04-27 11:08] VITALS: BP 133/62
[2016-04-27] MEDS ORDERED: NS 2,000 ML ONE (11:32)
--- NOTE | 2016-04-27 13:50 | PROGRESS NOTE ---
DATE: 04/27/2016 SUBJECTIVE: She is still having right hand pain. OBJECTIVE: Vital Signs: Blood pressure 133/62, heart rate 72, respirations 12, afebrile. General: She is a middle-aged woman, in no distress. Skin: Warm and dry. HEENT: Conjunctivae are pink. Pupils are equal. Neck: Neck veins are not distended. Heart: Regular with a gallop. Lungs: Have equal breath sounds. No crackles. Abdomen: Soft, nontender. Bowel sounds are present. Extremities: Are unchanged. She still has several areas of dark discoloration on the palmar surface of her fingertips on the right. No palpable radial pulse. LABORATORY DATA: Hemoglobin 9.4. Sodium 132, potassium 6.3, chloride 91, bicarbonate 19, BUN 66, creatinine 9.5. Transesophageal echocardiogram without vegetation. Blood cultures, repeat cultures are negative. Initial cultures were 1 out of 2 with Staph epidermidis. IMPRESSION: 1. Right hand pain. Likely ischemic. Dr. Contreras is evaluating. If she is discharged, then we will help facilitate this as an outpatient. 2. Possible endocarditis. A CLAUDY is negative and blood cultures would be more consistent with a contaminant. From my perspective, no further antibiotics are required. I did not order outpatient antibiotics unless the team feels otherwise and they will need to notify me. 3. End-stage renal disease. She was dialyzing currently with a 2 potassium bath.
--- NOTE | 2016-04-27 18:03 | DISCHARGE SUMMARY ---
ADMISSION DATE: 04/24/2016 DISCHARGE DATE: 04/27/2016 DISCHARGE DIAGNOSES: 1. End-stage renal disease on hemodialysis. 2. Lesions on finger both hands, endocarditis is ruled out. 3. Uncontrolled hypertension. 4. Uncontrolled diabetes mellitus type 2. CONSULTATIONS: 1. Dr. Eber James from Cardiology. 2. Dr. Emilio Chadwick from Nephrology. 3. Dr. Contreras from Vascular Surgery. PROCEDURES: 1. Echocardiogram showed significant enlarged left ventricle with normal function with ejection fraction of 60%. No evidence of significant diastolic dysfunction, mild degree of tricuspid regurgitation. No pericardial effusion, masses or thrombus noted. 2. Transesophageal echo showed mild regurgitation but did not show any vegetation or intracardiac mass or thrombus noted. Left atrial appendage was normal. 3. Placement of central line done by Dr. Aguilar Hughes. 4. There is arterial bilateral arms CV exam performed by Dr. Contreras but the result is not released yet. HOSPITAL COURSE: This is a 40-year-old female with past medical history of diabetes, hypertension, on dialysis who presented to the emergency department complaining of mild pain in both hands and purple lesions to the right palm and bilateral fingers. There was a suspicion for endocarditis considering that this patient is a recurrent drug abuser of cocaine and marijuana. She denied using any IV drugs in the past. Because of this suspicion we ordered blood cultures. In the ER, we were able just to get 1 sample for blood culture because she was really hard of sticking. Two more blood cultures were drawn from central line. All those 3 blood cultures, 1 returned positive for Staphylococcus epidermidis which I think is a contaminant. Also we performed a transesophageal echo to rule out any vegetation that this patient may developed but the exam is negative. There was a concern for possible AV functioning so we have consulted Dr. Contreras in that regard and he ordered an arterial bilateral arms exam that is pending at the time of discharge. We have checked with General Surgery today if this patient can be discharged from their standpoint, and they said that the patient can be discharged and if there is anything wrong with that test, they will contact the patient. The patient was not developing any fever during all of her hospitalization or before coming to the hospital. No chest pain. So at this point, patient is going to be discharged. Urine culture shows Strep and UTI. The patient was complaining of mild pain when she urinates so she is going to receive treatment for that. She is going to get levofloxacin for this condition for 7 days. Patient is being discharged in stable condition. DISCHARGE PHYSICAL EXAMINATION: Vitals: Temperature 97.6, heart rate 72, respiratory rate 12, blood pressure 133/62. O2 saturation 97% on room air. General Examination: This is a 40-year- old female lying in bed, in no acute distress. HEENT: Head is normocephalic, atraumatic. Anicteric sclerae and pale conjunctivae. Mucous membranes moist. Neck: Supple. No JVD noted. No carotid bruits. No lymphadenopathy. No thyromegaly. Cardiovascular: S1, S2 heard. No murmurs, gallops, or rubs. Regular rate and rhythm. Respiratory: Clear bilaterally to auscultation. No work of breathing or using accessory muscles. Abdomen: Soft, nontender to palpation. Bowel sounds present. No organomegaly. Extremities: Revealed an amputation, left ankle covered by dressing and there is a purple lesion in both fingers of both hands. Neurological: Patient is alert and oriented x3. Able to move her extremities. Cranial nerves 2- 12 grossly normal. DISCHARGE DISPOSITION: To home to self-care. LIST OF MEDICATIONS: 1. Levofloxacin 500 mg 1 tablet p.o. every other day for 7 doses. 2. Clonidine 0.1 mg 1 tablet p.o. b.i.d. 3. Coolin 7.5, 1 tablet p.o. every 6 hours as needed for pain. 4. Lantus 50 units subcutaneous at bedtime. 5. Lisinopril 40 mg p.o. b.i.d. DISCHARGE TIME: 35 minutes FOLLOWUP: With primary care physician, Dr. Johns in 1-2 weeks. [facility]
--- NOTE | 2016-04-29 04:48 | VASCULAR LAB ---
PROCEDURE NAME: Arterial Bilateral Arms - 04/26/2016 REFERRING PHYSICIAN: Dr. Contreras. NUCLEAR PLANT INSTRUMENT TECHNICIAN: Maile Red RVT. INDICATIONS: 1. Pain, right arm. ICD-10: M79.601. 2. Pain, left arm. ICD-10: M79.602. 3. Ischemic lesions, right finger. The patient is a diabetic, has high blood pressure, and has dialysis access in her right upper arm. FINDINGS: The left systolic brachial blood pressure was 166 mmHg. The right brachial blood pressure was not obtained because of the access. The right wrist systolic brachial blood pressure was greater than 250 mmHg. The left wrist systolic brachial blood pressure was greater than 250 mmHg. The right brachial to wrist index was 0.49. The left brachial to wrist index was 0.72. There was pulsatile flow to the wrists bilaterally but the pulse waveforms were diminished on the right upper extremity when compared to the left. There was also diminished pulse waveforms involving the right thumb and index finger when compared to the left thumb and index finger. There were no pulse waveforms involving the middle, ring, and little fingers of both hands. INTERPRETATION: Evidence of calcific upper extremity arteries with falsely elevated systolic blood pressures at the wrists bilaterally. There is diminished pulsatile flow in the right upper extremity when compared to the left. There were diminished pulse waveforms involving the right wrist and the right thumb and index finger when compared to the left wrist and left thumb and index finger. There were no pulse waveforms in both hands involving the middle finger, ring finger, and little finger.
--- NOTE | 2016-04-29 11:04 | VASCULAR LAB ---
PROCEDURE NAME: Arterial U/S Unilateral Arm - 04/26/2016 PROCEDURE PERFORMED: Duplex ultrasound examination of the right radial and ulnar arteries. REFERRING PHYSICIAN: Dr. Contreras ADJUNCT LATIN PROFESSOR: Maile Red RVT INDICATION: Check for patency of these arteries. The patient does have dialysis access in her right upper arm. INTERPRETATION: This was a difficult study because the patient was uncooperative secondary to pain, she could not hold still. She had calcific vessels involving the right upper extremity. The radial and ulnar arteries are both patent but with abnormal flow bilaterally. There were 2 brachial arteries more proximally at the elbow. The branch of the brachial artery that was connected to the dialysis access graft has retrograde flow and more distally, this branch of the brachial artery turns into the radial artery. The left radial and ulnar arteries at the left wrist also had abnormal flow. INTERPRETATION: This is a limited study due to the patient's cooperation. It appears that the brachial artery branches at the elbow. The brachial artery that is supplying the access in the right arm turns into the radial artery more distally at the right wrist. It has retrograde flow. The radial and ulnar arteries are both patent but have abnormal flow bilaterally at the wrist. Her vessels are calcific.
== END 2016-04-27 18:39 | disposition home or self-care (01) | DRG 606 ==
LOC: ED 12:51 → 4N 19:03
PROVIDERS: ATTEND Internal Medicine
PROC: 06HM33Z Insertion of Infusion Device into Right Femoral Vein, Percutaneous Approach (ICD-10-PCS; principal; 2016-04-24)
PROC: B54BZZA Ultrasonography of Right Lower Extremity Veins, Guidance (ICD-10-PCS; 2016-04-24)
PROC: 5A1D60Z (ICD-10-PCS; 2016-04-25)
PROC: B24BZZ4 Ultrasonography of Heart with Aorta, Transesophageal (ICD-10-PCS; 2016-04-26)
DX: L98.9 Disorder of the skin and subcutaneous tissue, unspecified (principal); N18.6 End stage renal disease; I12.0 Hypertensive chronic kidney disease with stage 5 chronic kidney disease or end stage renal disease; E11.22 Type 2 diabetes mellitus with diabetic chronic kidney disease; I11.0 Hypertensive heart disease with heart failure; I50.9 Heart failure, unspecified; I08.1 Rheumatic disorders of both mitral and tricuspid valves; N39.0 Urinary tract infection, site not specified; S82.892A Other fracture of left lower leg, initial encounter for closed fracture; D63.1 Anemia in chronic kidney disease; Z99.2 Dependence on renal dialysis; J45.909 Unspecified asthma, uncomplicated; K21.9 Gastro-esophageal reflux disease without esophagitis; Z89.511 Acquired absence of right leg below knee; Z87.891 Personal history of nicotine dependence; F14.90 Cocaine use, unspecified, uncomplicated; F12.90 Cannabis use, unspecified, uncomplicated; Z83.3 Family history of diabetes mellitus; Z80.9 Family history of malignant neoplasm, unspecified; Z79.4 Long term (current) use of insulin; Z79.899 Other long term (current) drug therapy; Z86.718 Personal history of other venous thrombosis and embolism; I87.8 Other specified disorders of veins
CPT/HCPCS: 71020; 80048; 80053; 81001; 82550; 82948; 83036; 83605; 84484; 85025; 85379; 85610; 85651; 85730; 87040; 87077; 87088; 87186; 93306; 93312; 93923; 93931; 99285; G0480; J1644; J2175; J2250; J2405; J3370; J7030; J7050; 80324; 80345; 80346; 80349; 80353; 80358; 80361; 80365; 83992

== ENCOUNTER 2016-06-20 08:15 | Inpatient (IN) ==
[2016-06-18 11:13] LABS: HEMATOCRIT 30.2 % (37.0-47.0); HEMOGLOBIN 9.7 g/dL (12.0-16.0); MCH 30.2 PG (27-31); MCHC 32.1 g/dL (33-37); MCV 94.1 FL (81-99); MPV 8.7 FL (7.4-10.4); RBC 3.21 XMIL (4.2-5.4)
[2016-06-18 12:24] LABS: POTASSIUM 5.9 mmol/L (3.5-5.1)
[2016-06-20] MEDS ORDERED: 1/2 NS 500 ML ONE ×2 (08:54→10:01)
[2016-06-20] MEDS ORDERED: KEFZOL 1 GM/D5W 1 GM/50 ML IVPB ONE (08:55)
[2016-06-20] MEDS ORDERED: NORCO-7.5 ONE (08:57)
[2016-06-20 09:46] LABS: HEMATOCRIT 27.6 % (37.0-47.0); HEMOGLOBIN 8.8 g/dL (12.0-16.0); MCH 30.4 PG (27-31); MCHC 31.9 g/dL (33-37); MCV 95.5 FL (81-99); MPV 9.5 FL (7.4-10.4); RBC 2.89 XMIL (4.2-5.4)
[2016-06-20 10:09] LABS: CALCIUM 9.5 mg/dL (8.8-10.2); POTASSIUM 4.6 mmol/L (3.5-5.1)
[2016-06-20] MEDS ORDERED: D5 1/2 NS 500 ML IV SCH (11:00)
[2016-06-20] MEDS ORDERED: DIPRIVAN 1% ONE (11:42)
[2016-06-20] MEDS ORDERED: FENTANYL ONE (11:42)
[2016-06-20] MEDS ORDERED: D5 1/2 NS 1,000 ML ONE (11:49)
[2016-06-20] MEDS: MORPHINE ONE ×4 (12:00→12:30)
--- NOTE | 2016-06-20 13:02 | OPERATIVE NOTE ---
PROCEDURE DATE : 06/20/2016 PROCEDURE: Left below elbow amputation. SURGEON: Diego Contreras MD HEALTH [facility] SAFETY COORDINATOR: Vinicius Sun PREOPERATIVE DIAGNOSIS: Ischemic necrosis of the left hand. POSTOPERATIVE DIAGNOSIS: Ischemic necrosis of the left hand. DESCRIPTION OF PROCEDURE: Satisfactory general anesthesia was achieved. The left hand was excluded. The arm was prepped and draped in a sterile fashion. We marked the skin in a fish mouth fashion in the forearm. We incised the skin into the subcutaneous tissue. We then used electrocautery to go through the subcutaneous tissue to the muscle groups. We then divided the muscle groups with electrocautery. We identified the radial artery. We clamped and divided it and suture ligated it with 3-0 silk suture ligature. We did the same for the ulnar artery. The median nerve was ligated with 3-0 Polysorb and divided. The ulnar nerve was ligated with a 3-0 Polysorb and divided. After the muscle groups were divided we then used the periosteal elevator to raise the muscle off the radius and ulna. We then transected the radius and ulna with the bone biter. The bone was quite sclerotic. The wrist and hand was handed off. We filed the end of the radius and ulna. We copiously irrigated the stump. We then approximated the muscle groups with 3- 0 Polysorb. We approximated the subcutaneous tissue with 3-0 Polysorb. We approximated the skin with rakesh. Xeroform, sterile 4x4s, and Kerlix was applied. She tolerated it well and was sent to the recovery room in satisfactory condition. cc: Diego Contreras MD
[2016-06-20] MEDS ORDERED: SALINE LOCK IV FLUID XX ONE (13:12)
[2016-06-20] MEDS ORDERED: XYLOCAINE-MPF 2% ONE (13:32)
[2016-06-20] MEDS: BENADRYL PO PRN ×2 (17:25→23:56)
[2016-06-20] MEDS: NORCO-10 PO PRN (17:25)
[2016-06-20] MEDS: DILAUDID IV PRN ×2 (18:54→22:42)
--- NOTE | 2016-06-20 19:51 | CONSULTATION ---
DATE OF CONSULTATION: 06/20/2016 REASON FOR ADMISSION: Planned left upper extremity below elbow amputation. REASON FOR CONSULTATION: Assist with management and dialysis. CONSULTING PHYSICIAN: Diego Contreras MD. HISTORY OF PRESENT ILLNESS: This is a 40-year-old female, well known to our service for end-stage renal disease on hemodialysis. She has severe peripheral vascular disease and underwent amputation of the right lower extremity and most recently amputation below the elbow of the right upper extremity. She developed ischemia and dry gangrene to the left upper extremity and presents to the hospital for planned amputation below the elbow of the left upper extremity today. She underwent that earlier today and patient is seen in the postoperative state. She is still quite drowsy and information is obtained from the chart. PAST MEDICAL HISTORY: End-stage renal disease on Friday, , Friday schedule. Diabetes type 2. Hypertension. Iron deficiency anemia and ESRD anemia. Protein calorie malnutrition. Hyperparathyroidism. Osteodystrophy. Hyperphosphatemia. Severe vascular disease. SURGICAL HISTORY: She had a right BKA. She had a right below the elbow amputation. New right below the elbow left upper extremity amputation. She has a tunnel dialysis catheter. She had a tonsillectomy. ALLERGIES: No known drug allergies. HOME MEDICATIONS: Lisinopril and clonidine. CURRENT MEDICATIONS: Hydrocodone, Peridex, Catapres, Dilaudid, Prinivil and Zofran. FAMILY HISTORY: Diabetes and cancer. SOCIAL HISTORY: Previous history of cocaine and marijuana use. Previous history of ETOH. No smoking. REVIEW OF SYSTEMS: Unobtainable. PHYSICAL EXAMINATION: Vital Signs: Temperature 100.2 degrees, pulse 82, respiratory rate 16, blood pressure 125/82. Intake 300 mL. Output 20 mL. General: This is a middle-aged female, resting in bed. She is extremely drowsy. She is recently postop earlier today for her left upper extremity below elbow amputation. She awakens, follows commands and drifts off back to sleep. HEENT: Normocephalic, atraumatic. Oral mucosa is dry. Conjunctivae are pale. Neck: Supple. Trachea midline. Cardiovascular: Reveals regular rate and rhythm without murmur or gallop appreciated. Pulmonary: She has equal excursion. She is clear bilaterally. She is on 2 L nasal cannula. Abdomen: Soft with positive bowel sounds. Genitourinary: Not inspected. She has minimal void. Hemodialysis assist. Extremities: Right BKA. No pretibial edema to the left lower extremity. Her right upper extremity has a fairly recent below elbow amputation with some areas to the surgical incisions that appear crusted. Left upper extremity with new below the elbow amputation covered in an Mario wrap. There is no bleeding noted. Integumentary: Warm and dry otherwise. Neurologic: Grossly nonfocal. Again she is quite drowsy. LAB DATA: WBC 12.3, hemoglobin 8.8, hematocrit 27.4, platelet count of 428, 000. Sodium 134, potassium 4.6, chloride 90, CO2 of 22, BUN 25, creatinine 7.5. ASSESSMENT AND PLAN: 1. End-stage renal disease management. We will plan to dialyze her in the morning. We will keep her on a 3 day a week dialysis treatment while she is in the hospital. Check labs in the morning. Adjust her dialysis bath and fluid volumes as needed. 2. Electrolytes, acid-base balance anemia. These are stable prior to surgery. Again we will check labs in the morning. 3. Fluid volume. She does not appear overloaded. 4. Hypertension controlled. 5. New left upper extremity below elbow amputation followed by Surgery and Primary. Seen, data reviewed, discussed with Keith Rivers on 06/21/15. I agree with the above assessment and plan of care. rg Dictated by PHILL Chowdary for Emilio Chadwick MD cc: MD Diego Cain MD [facility]
[2016-06-20] MEDS: PRINIVIL PO SCH (21:08)
[2016-06-20] MEDS: PERIDEX MT SCH (21:08)
[2016-06-20] MEDS: CATAPRES PO SCH (21:08)
[2016-06-21] MEDS ORDERED: NS 2,000 ML MISC PRN (07:00)
[2016-06-21] MEDS ORDERED: NS 2,000 ML ONE (08:01)
[2016-06-21] MEDS ORDERED: HEPARIN ONE (08:01)
[2016-06-21] MEDS: DILAUDID IV PRN ×4 (08:25→19:05)
[2016-06-21] MEDS: BENADRYL PO PRN (08:28)
[2016-06-21] MEDS ORDERED: EPOGEN SUBQ ONE (09:30)
[2016-06-21] MEDS ORDERED: DILAUDID ONE (10:26)
[2016-06-21] MEDS ORDERED: NORCO-10 ONE (11:01)
[2016-06-21] MEDS: NORCO-10 PO PRN ×2 (11:07→20:20)
--- NOTE | 2016-06-21 12:47 | PROGRESS NOTE ---
DATE: 06/21/2016 SUBJECTIVE: She states her pain is controlled currently. She is resting without difficulty. VITAL SIGNS: Blood pressure 172/77, heart rate 77, respirations 14, afebrile. PHYSICAL EXAMINATION: No acute distress. Skin is warm and dry. Neck veins are not appreciated. Heart is regular. Lungs have equal breath sounds, shallow. No crackles. Abdomen is soft, nontender. Bowel sounds present. Extremities have no edema, clubbing, or cyanosis. Left arm is dressed. LABORATORY DATA: Sodium 134, potassium 4.6, chloride 90, bicarbonate 22. BUN 25, creatinine 7.5. IMPRESSION: 1. End-stage kidney disease. She is receiving her routine outpatient dialysis prescription. 3 L ultrafiltration and 2 potassium bath. 2. Hypertension, above target. She is on her home medications. No change. 3. Anemia. Postop. We will dose with erythropoietin. cc: MD Diego Cain MD
[2016-06-21] MEDS: PERIDEX MT SCH ×2 (14:01→20:20)
[2016-06-21] MEDS: PRINIVIL PO SCH ×2 (14:01→20:01)
[2016-06-21] MEDS: CATAPRES PO SCH ×2 (14:01→20:01)
[2016-06-21] MEDS: ZOFRAN IV PRN (20:23)
[2016-06-22] MEDS: DILAUDID IV PRN ×5 (02:05→22:15)
[2016-06-22] MEDS: NORCO-10 PO PRN ×2 (06:36→19:26)
[2016-06-22] MEDS: CATAPRES PO SCH ×2 (08:38→22:16)
[2016-06-22] MEDS: PRINIVIL PO SCH ×2 (08:38→22:16)
[2016-06-22] MEDS: PERIDEX MT SCH ×2 (08:38→22:16)
--- NOTE | 2016-06-22 16:13 | PROGRESS NOTE ---
DATE: 06/22/2016 SUBJECTIVE: She states her pain is adequately controlled. She has had some bleeding from her dressing on the left arm surgical site. OBJECTIVE: Vital Signs: Blood pressure 170/64, heart rate 66, respiration 20, afebrile. General: She is a chronically ill, young woman in no distress. Skin: Warm and dry. Eyes: Conjunctivae are pink. Neck: Neck veins are not distended. Heart: Regular. Lungs: Have equal breath sounds. No crackles. Abdomen: Soft and nontender. Bowel sounds are present. Extremities: Have no edema, clubbing, or cyanosis. LABORATORY DATA: None today. IMPRESSION: 1. End-stage kidney disease. She will be due for her next treatment tomorrow. 2. Diabetes. Her glycemic control has been acceptable. She has had 2 marginally low glucose readings in the last 24 hours. 3. Pain control is adequate. 4. Hypertension. Blood pressure is been marginally high, but given her clinical situation I will not make changes. cc: MD Diego Cain MD
--- NOTE | 2016-06-22 17:55 | PROGRESS NOTE ---
DATE: 06/22/2016 SUBJECTIVE: The patient complains of pain in her left arm and bleeding through her dressing. OBJECTIVE: Vital Signs: She is afebrile. Vital signs are stable. General: Alert and oriented x4. No acute distress. Extremities: Left forearm dressing was taken down. There was some blood soaked through the gauze. The incision however looked a little moist but there was no active bleeding. There was some expected swelling. No signs of any necrosis of the skin or infection. ASSESSMENT/PLAN: A 40-year-old female status post left forearm amputation postop day 2. We will re-dress her arm and continue to observe her over the weekend until Dr. Contreras sees her on Friday. cc: MD Diego Bales MD
[2016-06-22] MEDS: BENADRYL PO PRN (22:16)
[2016-06-23] MEDS: NORCO-10 PO PRN ×4 (01:32→19:46)
[2016-06-23] MEDS: DILAUDID IV PRN ×4 (03:21→22:34)
[2016-06-23] MEDS: PRINIVIL PO SCH ×2 (08:15→22:34)
[2016-06-23] MEDS: CATAPRES PO SCH ×2 (08:15→22:34)
[2016-06-23] MEDS: PERIDEX MT SCH ×2 (08:18→22:34)
--- NOTE | 2016-06-23 10:12 | PROGRESS NOTE ---
DATE: 06/23/2016 SUBJECTIVE: The patient has no new complaints this morning. OBJECTIVE: Vital Signs: She is afebrile. Vital signs are stable. General: Alert and oriented x4. No acute distress. Extremities: Left forearm dressing is clean and dry. ASSESSMENT/PLAN: A 40-year-old female status post left forearm amputation. She is stable today. She will be re-evaluated by Dr. Contreras tomorrow in anticipation of discharge this week. cc: MD Diego Bales MD
[2016-06-23] MEDS: BENADRYL PO PRN (13:20)
[2016-06-24] MEDS: DILAUDID IV PRN ×5 (02:46→21:09)
[2016-06-24] MEDS ORDERED: TIGHT: 0.2 ML/HR MISC PRN (07:02)
[2016-06-24] MEDS ORDERED: HEPARIN IV PRN (07:02)
[2016-06-24] MEDS ORDERED: NS 2,000 ML MISC PRN (07:02)
--- NOTE | 2016-06-24 09:32 | PROGRESS NOTE ---
DATE: 06/24/2016 SUBJECTIVE: Ms. Wheat is sitting on the side of the bed. She states that she is feeling well. She denies any chest pain. No increased work of breathing. She states that she is hungry now that she has to wait for people to help feed her. OBJECTIVE: Vital signs: Her most recent vital signs, her last temperature 98.2 degrees, blood pressure 187/74, heart rate 70, respirations 16. She is currently on room air. Last recorded saturation 100%. She has had 1080 in. She has had 0 recorded out with need for dialysis. Labs: This a.m. are still pending. Her last potassium was 4. . Her last hemoglobin was 8.8. PHYSICAL EXAMINATION: General: This is a 40-year-old female. She is resting on the side of the bed. She is in no acute distress. Skin: Warm and dry. HEENT : Normocephalic, atraumatic. Conjunctivae pink. She has ROSA MARIA. Mucous membranes moist. Neck: Supple. Trachea midline. No JVD. Cardiovascular: Regular rate and rhythm. Lungs: Clear to auscultation anteriorly. Equal excursion on room air. Abdomen: Large, round, soft, nontender. Positive bowel sounds. Extremities: She has bilateral amputation with a pressure dressing to the left upper arm. Lower extremities: Right is a BKA. She has no edema to this leg. Left continues in a dressing on the foot. No odor noted. No shadow drainage present. Her toes are cool to touch. Genitourinary: Patient has minimal void with dialysis assist. Neurological: She is alert and oriented x3. ASSESSMENT AND PLAN: 1. End-stage renal disease. Patient is due for her routine dialysis treatment today. We will place her on a 2 K bath. She is to dialyze for 3.5 hours. We will attempt to pull patient to her last inpatient dry weight. 2. Diabetes. Patient remains on glycemic control with sliding scale per primary care team. 3. Electrolytes and acid-base balance. These have been stable. They are currently pending. 4. Anemia. This has been low but stable. This is currently pending. 5. Hypertension. This remains marginally stable. Continues slightly elevated. We will continue to monitor with assistance from dialysis. I would like to thank you for allowing us to follow with this patient. Seen, data reviewed, discussed with Krista Boggs on 06/24/16. I agree with the above assessment and plan of care. rg Dictated by PHILL Daniel for Emilio Chadwick MD cc: PHILL Daniel MD [facility]. Walker, MD [facility]
[2016-06-24] MEDS: CATAPRES PO SCH ×2 (09:40→20:15)
[2016-06-24] MEDS: PERIDEX MT SCH ×2 (09:40→20:15)
[2016-06-24] MEDS: PRINIVIL PO SCH ×2 (09:40→20:15)
[2016-06-24] MEDS ORDERED: NS 2,000 ML ONE (12:05)
[2016-06-24] MEDS ORDERED: NORCO-10 ONE (13:24)
[2016-06-24] MEDS: NORCO-10 PO PRN ×3 (13:26→23:29)
[2016-06-25] MEDS: DILAUDID IV PRN ×7 (02:48→23:57)
--- NOTE | 2016-06-25 07:17 | PROGRESS NOTE ---
DATE: 06/25/2016 SUBJECTIVE: Ms. Wheat is lying in the hospital bed this morning. She is a few days out from her left upper extremity amputation per Dr. Contreras and from that part seems to be doing okay. OBJECTIVE: Left lower extremity exam, still has a little bit of drainage from that lateral ankle. Wound does not look terrible overall and actually that cavity looks like it has filled in some since I last saw her. ASSESSMENT: 1. Left Charcot ankle. 2. Left diabetic ankle wound. PLAN: It sounds like Ms. Wheat will be discharged over the next day or 2. I am going to see [facility] afternoon. So, will need to call and make that appointment and we can talk further about this ankle. cc: MD Diego Bridges MD
[2016-06-25] MEDS: PERIDEX MT SCH ×3 (08:50→23:12)
[2016-06-25] MEDS: PRINIVIL PO SCH ×3 (08:50→23:12)
[2016-06-25] MEDS: CATAPRES PO SCH ×3 (08:50→23:11)
[2016-06-25] MEDS: ZOFRAN IV PRN (11:46)
--- NOTE | 2016-06-25 14:40 | PROGRESS NOTE ---
DATE: 06/25/2016 DATE AND TIME SEEN: 06/25/2016 at 0755 hours. SUBJECTIVE: Ms. Wheat is resting quietly in bed. She denies any pain. No increased work of breathing. She states that she is waiting for her breakfast. MOST RECENT VITAL SIGNS: Temperature 97.5 degrees, blood pressure 149/63, heart rate 65, respirations 12. She is on room air. Last recorded saturation is 100%. She has had 1200 in. She has had 2600 out per hemodialysis. LABORATORY DATA: This a.m., her labs have not been drawn. We will plan for labs in the a.m. OBJECTIVE: General: On physical exam, this is a 40-year-old, female. She is resting quietly in bed. She is in no acute distress. Skin: Warm and dry. HEENT: Normocephalic, atraumatic. Conjunctivae pale. She has ROSA MARIA. Mucous membranes moist. Neck: Supple. Trachea midline. No JVD. Cardiovascular: Regular rate and rhythm. She has a soft systolic murmur present. Lungs: Clear to auscultation anterior. Equal excursion. She is on room air. Abdomen: Large, round, soft, nontender. Positive bowel sounds. Extremities: Bilateral amputation with a pressure dressing to the left upper arm. BKA to the right. Left leg currently has a dressing that is dry and intact. No odor or shadow drainage present. Her toes are cool to touch. Genitourinary: Minimal void with dialysis assist. Neurological: She is alert and oriented x3. ASSESSMENT AND PLAN: 1. End-stage renal disease. Patient is due for her routine dialysis treatment in the morning. We will check labs and plan for appropriate potassium bath. 2. Electrolytes and acid-base balance. These have not been drawn in the last 24 -48 hours. We will check these labs in the morning. They have been stable in the past. 3. Anemia. This has been low, but stable. 4. Hypertension. This remains marginally stable. 5. Diabetes. Patient remains on glycemic control per the primary care team. 6. Status post above the elbow amputation followed by surgery with Dr. Armstrong. I would like to thank you for allowing us to follow with this patient. Seen, data reviewed, discussed with Krista Boggs on 06/25/16. I agree with the above assessment and plan of care. rg Dictated by PHILL Daniel for Emilio Chadwick MD cc: PHILL Daniel MD Robert C. Walker, MD [facility]
[2016-06-25] MEDS: NORCO-10 PO PRN (15:54)
[2016-06-25] MEDS: SANTYL OINT TOP SCH (17:05)
[2016-06-26] MEDS: NORCO-10 PO PRN ×4 (04:04→21:19)
[2016-06-26] MEDS ORDERED: HEPARIN IV PRN (07:09)
[2016-06-26] MEDS ORDERED: TIGHT: 0.2 ML/HR MISC PRN (07:09)
[2016-06-26] MEDS ORDERED: NS 2,000 ML MISC PRN (07:09)
[2016-06-26] MEDS ORDERED: NS 2,000 ML ONE ×2 (07:14→08:13)
[2016-06-26] MEDS ORDERED: HEPARIN ONE (07:14)
[2016-06-26] MEDS: DILAUDID IV PRN ×2 (07:35→11:25)
--- NOTE | 2016-06-26 08:31 | PROGRESS NOTE ---
DATE: 06/26/2016 SUBJECTIVE: Ms. Wheat is resting quietly in bed. She is waiting for her breakfast. She denies chest pain or increased work of breathing. OBJECTIVE: Her most recent vital signs are her last temperature 97.8 degrees, blood pressure 155/75, heart rate 64, respirations 16. She is on room air. Last recorded saturation 100%. She has had 1540 in. She has had 0 out with need for dialysis. She will have labs drawn on dialysis. Her last hemoglobin was 8.8. Her last potassium was 4.6. PHYSICAL EXAMINATION: General: This is a 40-year-old female. She is currently resting in bed. She is in no acute distress. Skin: Warm and dry. HEENT: Normocephalic, atraumatic. Conjunctiva is pale. She has ROSA MARIA. Mucous membranes moist. Neck : Supple. Trachea midline. No JVD. Cardiovascular: Regular rate and rhythm. Soft systolic murmur. Lungs: Clear to auscultation anteriorly. Equal excursion. Abdomen: Round, soft, nontender. Positive bowel sounds. Extremities: Have bilateral upper extremity amputation below the elbows. Left forearm does have rakesh intact, exposed to air, no drainage noted. She has a right BKA. Left leg continues to have dressing intact. No odor noted. Toes remained cool. Genitourinary: Minimal void with dialysis assist. Neurological: Alert and oriented x3. ASSESSMENT AND PLAN: 1. End-stage renal disease. Patient is due for her routine dialysis treatment this a.m. We will place her on a 2 K bath. She is to dialyze for 3.5 hours. We will attempt to pull patient to her last dry weight in the hospital. 2. Electrolytes and acid-base balance. These are pending. These are to be drawn every 48 hours while patient is on dialysis. 3. Anemia. Again, this is low but stable. This is currently pending. 4. Hypertension. This is marginally stable. 5. Status below the elbow amputation to the left, Dr. Armstrong following. I would like to thank you for allowing us to follow with this patient. Seen, data reviewed, discussed with Krista Boggs on 06/26/16. I agree with the above assessment and plan of care. rg Dictated by PHILL Daniel for Emilio Chadwick MD cc: PHILL Daniel MD [facility] Walker, MD [facility]
[2016-06-26] MEDS: CATAPRES PO SCH ×2 (08:48→21:19)
[2016-06-26] MEDS: PERIDEX MT SCH ×2 (08:48→21:19)
[2016-06-26] MEDS: PRINIVIL PO SCH ×2 (08:48→21:19)
[2016-06-26] MEDS: SANTYL OINT TOP SCH (09:53)
[2016-06-26 14:17] LABS: CALCIUM 9.2 mg/dL (8.8-10.2); POTASSIUM 4.4 mmol/L (3.5-5.1)
[2016-06-26] MEDS: ZOFRAN IV PRN (16:51)
--- NOTE | 2016-06-26 16:59 | DISCHARGE SUMMARY ---
ADMISSION DATE: 06/20/2016 DISCHARGE DATE: DISCHARGE DIAGNOSIS: Ischemic gangrene of the left hand. OTHER DIAGNOSES: 1. Diabetes. 2. Chronic kidney disease, stage 5. 3. Severe peripheral vascular disease. 4. Hypertension. PRIMARY PROCEDURE: A left below elbow amputation. HISTORY: This is an unfortunate 40-year-old black female, with chronic kidney disease 5, who has already undergone a right below-knee amputation and a right below-elbow amputation. She denies ischemic gangrene of the left hand. She was admitted and underwent the procedure uneventfully. Dr. Chadwick was consulted. She continues to dialyze 3 times a week with a right upper arm fistula. Dr. Lewis Benites was consulted who is following her left foot. We continued on her usual medications. Because of her social situation and 3 limb amputee status, we felt to be best served by going to rehab so we have arranged for her to go to [facility] for therapy. We will start seeking prosthetics for her upper extremities. She will return to the office in followup. She will resume her usual home medications, as well as some pain medication for her recent surgery. cc: MD Emilio Wheeler MD
--- NOTE | 2016-06-27 06:57 | PROGRESS NOTE ---
DATE: 06/27/2016 SUBJECTIVE: She has no complaints this morning. She is anticipating discharge to [facility] for rehabilitation. No shortness of breath, nausea, or vomiting. OBJECTIVE: Vital Signs: Blood pressure 160/90, heart rate 66, respirations 18, afebrile. General: She is a chronically ill, young woman in no distress. Skin: Warm and dry. HEENT: Conjunctivae are pink. Neck: Neck veins are not visible. Trachea is midline. Heart: Regular without gallops or murmurs. Lungs: Have equal breath sounds. No crackles. Abdomen: Soft, nontender. Bowel sounds are present. Extremities: Have no edema, clubbing, or cyanosis. Her surgical wound is clean. Laboratory Data: Pending. IMPRESSION: 1. End-stage kidney disease. She had her routine hemodialysis yesterday. 2. Hypertension. Above target but acceptable. Would discharge on the same current medications. 3. Status post left upper extremity amputation, healing well.. 4. Diabetes. Fingerstick glucose in target. cc: MD Diego Cain MD
[2016-06-27 08:32] VITALS: BP 190/73
[2016-06-27] MEDS: SANTYL OINT TOP SCH (08:40)
[2016-06-27] MEDS: PRINIVIL PO SCH (08:54)
[2016-06-27] MEDS: NORCO-10 PO PRN ×2 (08:54→13:53)
[2016-06-27] MEDS: CATAPRES PO SCH (08:54)
[2016-06-27] MEDS: PERIDEX MT SCH (08:55)
== END 2016-06-27 14:21 ==
LOC: OR 08:15 → EDSTATUS 11:00 → SURHOLD 11:42 → 4N 13:11
PROVIDERS: ADMIT Surgery; ATTEND Surgery

== ENCOUNTER 2016-08-08 15:16 | Inpatient (IN) ==
[2016-08-08] MEDS ORDERED: NS 1,000 ML ONE (16:27)
[2016-08-08] MEDS ORDERED: ZOFRAN IV ONE (16:29)
[2016-08-08] MEDS ORDERED: NITROGLYCERIN SL ONE (16:30)
[2016-08-08] MEDS ORDERED: CARDIZEM IV ONE (16:30)
[2016-08-08] MEDS ORDERED: TYLENOL ONE (16:45)
[2016-08-08] MEDS ORDERED: TYLENOL LIQUID ONE (16:50)
[2016-08-08] MEDS ORDERED: PHENERGAN ONE (16:54)
[2016-08-08] MEDS ORDERED: TYLENOL LIQUID PO ONE (16:59)
[2016-08-08] MEDS ORDERED: SODIUM CHLORIDE 0.9% INJ ONE (16:59)
[2016-08-08] MEDS ORDERED: PHENERGAN IV ONE (16:59)
[2016-08-08] MEDS ORDERED: NS 1,000 ML IV ONE ×2 (17:01)
[2016-08-08 17:09] LABS: HEMATOCRIT 34.5 % (37.0-47.0); HEMOGLOBIN 11.2 g/dL (12.0-16.0); IMM GRAN# 0.07 X1000 (0.0-0.04); IMM GRAN% 0.3 % (0.0-0.5); LYMPH# 0.48 X1000 (1.2-3.4); LYMPH% 1.8 % (20.5-51.1); MANUAL DIFF NEEDED? YES; MCH 31.2 PG (27-31); MCHC 32.5 g/dL (33-37); MCV 96.1 FL (81-99); MONO# 0.69 X1000 (0.11-0.59); MONO% 2.6 % (1.7-9.3); MPV 10.1 FL (7.4-10.4); NEUT% 95.3 % (42.2-75.2); PLT 275 X1000 (130-400); RBC 3.59 XMIL (4.2-5.4)
--- NOTE | 2016-08-08 17:10 | Diag Imaging Result Doc PS360 ---
EXAM: CHEST-PORTABLE - 08/08/2016 HISTORY: sepsis TECHNIQUE: Portable chest 4:33 PM COMPARISON: 04/24/2016 FINDINGS: There is cardiomegaly which appears stable to mildly decreased. There is stable prominence of central vascular markings. There is subsegmental atelectasis at the medial right base. There is no dense consolidation, pleural effusion, or pneumothorax identified. IMPRESSION: Stable to mildly decreased cardiomegaly. Stable mild prominence of vascular markings. Subsegmental atelectasis at medial right base. No discrete pneumonia. Electronically signed by Trent Hinton 08/08/2016 5:08 PM
[2016-08-08 17:26] LABS: ALBUMIN 3.6 g/dL (3.5-5.0); INR 1.27 (0.86-1.15); POTASSIUM 4.9 mmol/L (3.5-5.1); PROTIME 16.2 Seconds (12.1-15.5); TOTAL BILIRUBIN 0.7 mg/dL (0.20-1.00); TOTAL PROTEIN 7.7 g/dL (6.3-8.3)
[2016-08-08 17:38] LABS: LYMPHS 2 % (21-51); MONO 2 % (1-9)
[2016-08-08] MEDS ORDERED: ROCEPHIN 2 GM/NS 2 GM/50 ML IVPB IV ONE (17:59)
--- NOTE | 2016-08-08 18:05 | PROVIDER DOCUMENTATION ---
This chart was entered by Iris Washington Scribe, acting as scribe for Beau Parisi MD. HPI-General Adult - General Source: patient - History of Present Illness -Gen Adult Nature of Presenting Problems: 41 yo F presents to the ER with complaint of high blood pressure and temperature. Pt was at the wound clinic and they advised her to come here. BP was 214/108 on arrival with a 102 temperature. Pt had her leg amputated in 2005 and states she had bilateral arms below the elbow amputated x2-3 months ago because of "blood clots" in her fingers. Associated Symptoms: reports: fever/chills, nausea, vomiting <Beau Parisi I - Last Filed: 08/08/16 18:05> - General Source: patient - History of Present Illness -Gen Adult Nature of Presenting Problems: Pt vomited 2-3x yesterday but still ate, she has not eaten today, but has also vomited 2-3 x's. She has not had a bowel movement in 2 days <Joao Llanes - Last Filed: 08/08/16 20:06> - General Chief Complaint: B/P Problems Stated Complaint: B/P PROBLEMS/FEVER Time Seen by Provider: 08/08/16 16:11 Allergies/Adverse Reactions: Patient Allergies Allergy/AdvReac Type Severity Reaction Status Date / Time No Known Allergies Allergy Verified 07/18/16 16:09 Home Medications: Home Medication List Medication Instructions Recorded Confirmed Last Taken Type Lisinopril 40 mg PO BID 10/10/14 07/18/16 07/18/16 10:00 History Clonidine [Catapres] 0.1 mg PO BID 11/08/14 07/18/16 07/18/16 10:00 History Hydrocodone/APAP 10 mg/325 mg 1 tab PO PRN PRN 07/18/16 07/18/16 07/17/16 16:35 History [[place]-10] Ondansetron HCl [Zofran] 1 tab PO Q6H PRN PRN #15 tablet 07/18/16 Unknown Rx Promethazine HCl 25 mg ID PRN PRN 07/18/16 07/18/16 07/17/16 18:30 History Review of Systems - Adult - REVIEW OF SYSTEMS - ADULT Constitutional: reports: chills, fever Eyes: reports: no symptoms reported Ears, Nose, Mouth & Throat: reports: no symptoms reported Cardiovascular: denies: chest pain, palpitations Respiratory: denies: cough, shortness of breath Gastrointestinal: reports: nausea, vomiting. denies: abdominal pain, diarrhea Genitourinary: reports: no symptoms reported Musculoskeletal: reports: no symptoms reported Integumentary: reports: no symptoms reported Neurological: reports: no symptoms reported Psychiatric: reports: no symptoms reported Endocrine: reports: no symptoms reported Hematologic/Lymphatic: reports: no symptoms reported Allergic/Immunologic: reports: no symptoms reported All Other Systems: Reviewed and Negative <Beau Parisi I - Last Filed: 08/08/16 18:05> - REVIEW OF SYSTEMS - ADULT Constitutional: reports: chills, fever <Joao Llanes - Last Filed: 08/08/16 20:06> Past History - Adult - PAST MEDICAL HISTORY-ADULT Review of Records: reports: Nursing Assessment Review, Medications Reviewed Cardiovascular: reports: cardiac disease, CHF, HTN Respiratory: reports: asthma Gastrointestinal: reports: GERD Genitourinary: reports: dialysis, kidney disease (CKD) Musculoskeletal: reports: other (right BKA, bilat forearm amputations) Endocrine/Immune: reports: Diabetes - PRIOR SURGERIES/PROCEDURES Surgical/Procedure History: reports: tonsillectomy, other (ear sx/dialysis shunt /BKA right leg/bilat forearm amputation) - PRIOR HOSPITALIZATIONS Prior Hospitalizations: reports: for other non-related - IMMUNIZATION STATUS Childhood Immunizations: See Nurse Assessment Flu Vaccine: See Nurse Assessment <Beau Parisi I - Last Filed: 08/08/16 18:05> - PAST MEDICAL HISTORY-ADULT Review of Records: reports: Nursing Assessment Review, Medications Reviewed <Joao Llanes - Last Filed: 08/08/16 20:06> Physical Exam-General - PHYSICAL EXAM-ADULT Initial Vital Signs Reviewed: Yes - CONSTITUTIONAL General Appearance: alert, no apparent distress - EYES Eyes: PERRL/EOMI, pink conjunctivae - HEAD, EARS, NOSE, MOUTH & THROAT HENMT: normocephalic/atraumatic, normal ENT inspection - NECK Neck: supple, normal inspection - RESPIRATORY Respiratory: no respiratory distress, no accessory muscle use - CARDIOVASCULAR Cardiovascular: normal peripheral pulses, regular rate, rhythm - MUSCULOSKELETAL Back Exam: no CVA tenderness, no vertebral tenderness Extremity: non-tender, normal inspection, other (R BKA, bilat forearm amputations) - SKIN Integumentary: normal color, warm/dry - NEUROLOGIC Neurologic: grossly normal, no motor/sensory deficits - PSYCHIATRIC Psych/Mental Status: normal mood/affect, normal thought content, normal thought process, oriented x 3 <Beau Parisi I - Last Filed: 08/08/16 18:05> - PHYSICAL EXAM-ADULT Initial Vital Signs Reviewed: Yes - CONSTITUTIONAL General Appearance: alert, no apparent distress <Joao Llanes - Last Filed: 08/08/16 20:06> Progress - PLAN OF CARE/RESULTS Progress/Plan/Lab Results: Vital Signs - 8 hr 08/08/16 15:43 Temperature 98.2 F Pulse Rate 103 H Respiratory Rate 20 Blood Pressure 201/95 Result Diagrams: 08/08/16 16:30 08/08/16 16:30 - XRAY 1 XRAY Study: Chest Impression: Abnormal (cardiomegaly and bilat infiltrate, per Dr. Parisi), See EMR Report (stable to mildly decreased cardiomegaly. stable mild prominence of vascular markins. subsegmental atelectasis at medial R base. no disecrete pneumonia. per radiologist) - CHANGE OF SHIFT REPORT (ED Provider) Report Given and Care Transferred to:: Dr. Llanes Time of Transfer: 17:58 Items Pending: Labs, XRAY Results, Physician Consult/Arrival <Beau Parisi I - Last Filed: 08/08/16 18:05> - PLAN OF CARE/RESULTS Progress/Plan/Lab Results: Vital Signs - 8 hr 08/08/16 15:43 08/08/16 16:11 08/08/16 17:13 Temperature 98.2 F 102.3 F H Pulse Rate 103 H 98 H Respiratory Rate 20 19 Blood Pressure 201/95 214/108 180/088 O2 Sat by Pulse Oximetry 99 08/08/16 18:27 Temperature 103.2 F H Pulse Rate 98 H Respiratory Rate 19 Blood Pressure 169/090 O2 Sat by Pulse Oximetry 99 Laboratory Results - last 24 hr 08/08/16 08/08/16 08/08/16 16:30 16:30 16:30 WBC 26.67 H RBC 3.59 L Hgb 11.2 L Hct 34.5 L MCV 96.1 MCH 31.2 H MCHC 32.5 L RDW Std Deviation 13.5 Plt Count 275 MPV 10.1 Immature Gran % (Auto) 0.3 Neut % (Auto) 95.3 H Lymph % (Auto) 1.[address] [place] % (Auto) 2.6 Eos % (Auto) 0.0 Baso % (Auto) 0.0 Immature Gran # (Auto) 0.07 H Neut # (Auto) 25.42 H Lymph # (Auto) 0.[address] [place] # (Auto) 0.69 H Eos # (Auto) 0.00 Baso # (Auto) 0.01 Segmented Neutrophils 96 H Lymphocytes 2 L Monocytes 2 PT INR APTT (Factor Assay) Sodium Potassium Chloride Carbon Dioxide Anion Gap BUN Creatinine Estimated GFR/1.73 m2 BUN/Creatinine Ratio Glucose Calculated Osmolality Calcium Total Bilirubin AST ALT Alkaline Phosphatase Creatine Kinase 20 L Troponin T Total Protein Albumin Globulin Albumin/Globulin Ratio Plasma Lactate 1.0 Urine Source Urine Color Urine Clarity Urine pH Ur Specific [place] Urine Protein Urine Ketones Urine Blood Urine Nitrite Urine Bilirubin Urine Urobilinogen Urine Microscopic RBC Urine WBC Urine Microscopic WBC Ur Epithelial Cells Urine Crystals Urine Bacteria Urine Casts Urine Yeast Urine Glucose 08/08/16 08/08/16 08/08/16 16:30 16:30 16:30 WBC RBC Hgb Hct MCV MCH MCHC RDW Std Deviation Plt Count MPV Immature Gran % (Auto) Neut % (Auto) Lymph % (Auto) [place] % (Auto) Eos % (Auto) Baso % (Auto) Immature Gran # (Auto) Neut # (Auto) Lymph # (Auto) [place] # (Auto) Eos # (Auto) Baso # (Auto) Segmented Neutrophils Lymphocytes Monocytes PT INR APTT (Factor Assay) 41.7 Sodium 133 L Potassium 4.9 Chloride 93 L Carbon Dioxide 22 L Anion Gap 19 BUN 29 H Creatinine 6.8 H Estimated GFR/1.73 m2 7 BUN/Creatinine Ratio 4 Glucose 121 H Calculated Osmolality 273 Calcium 9.0 Total Bilirubin 0.70 AST 11 ALT 6 L Alkaline Phosphatase 78 Creatine Kinase Troponin T 0.134 H Total Protein 7.7 Albumin 3.6 Globulin 4.0 Albumin/Globulin Ratio 1.0 Plasma Lactate Urine Source Urine Color Urine Clarity Urine pH Ur Specific [place] Urine Protein Urine Ketones Urine Blood Urine Nitrite Urine Bilirubin Urine Urobilinogen Urine Microscopic RBC Urine WBC Urine Microscopic WBC Ur Epithelial Cells Urine Crystals Urine Bacteria Urine Casts Urine Yeast Urine Glucose 08/08/16 08/08/16 16:30 18:00 WBC RBC Hgb Hct MCV MCH MCHC RDW Std Deviation Plt Count MPV Immature Gran % (Auto) Neut % (Auto) Lymph % (Auto) [place] % (Auto) Eos % (Auto) Baso % (Auto) Immature Gran # (Auto) Neut # (Auto) Lymph # (Auto) [place] # (Auto) Eos # (Auto) Baso # (Auto) Segmented Neutrophils Lymphocytes Monocytes PT 16.2 H INR 1.27 H APTT (Factor Assay) Sodium Potassium Chloride Carbon Dioxide Anion Gap BUN Creatinine Estimated GFR/1.73 m2 BUN/Creatinine Ratio Glucose Calculated Osmolality Calcium Total Bilirubin AST ALT Alkaline Phosphatase Creatine Kinase Troponin T Total Protein Albumin Globulin Albumin/Globulin Ratio Plasma Lactate Urine Source CLEAN CATCH Urine Color YELLOW Urine Clarity CLEAR Urine pH 9.0 Ur Specific [place] 1.010 Urine Protein 2+(100 mg/dL) A Urine Ketones TRACE Urine Blood TRACE Urine Nitrite NEGATIVE Urine Bilirubin NEGATIVE Urine Urobilinogen NORMAL Urine Microscopic RBC <10 Urine WBC 2+ A Urine Microscopic WBC 10-20 A Ur Epithelial Cells <10 Urine Crystals NONE SEEN Urine Bacteria 1+ Urine Casts NONE SEEN Urine Yeast NONE SEEN Urine Glucose TRACE(50 mg/dL) A Orders Category Date Time Status Cardiac Monitoring DIRECTED Care 08/08/16 16:27 Active Gomez Cath Insertion ORDERED Care 08/08/16 18:25 Active IV Insertion ORDERED Care 08/08/16 16:27 Completed Notify MD of + Sepsis Screen NOW Care 08/08/16 16:27 Active ABDOMEN/PELVIS W/O CONTRAST [CT] Stat Exams 08/08/16 18:32 Taken CHEST-PORTABLE [RAD] Stat Exams 08/08/16 16:29 Completed BLOOD CULTURE [BLDCUL] Stat Lab 08/08/16 16:40 Ordered CBC WITH DIFF [HEME] Stat Lab 08/08/16 16:30 Completed CK PROFILE [SP CHEM] Stat Lab 08/08/16 16:30 Completed COMPREHENSIVE METABOLIC PANEL [CHEM] Stat Lab 08/08/16 16:30 Completed LACTATE, PLASMA [CHEM] Stat Lab 08/08/16 16:30 Completed PROTIME WITH INR PL [COAG] Stat Lab 08/08/16 16:[address] [COAG] Stat Lab 08/08/16 16:30 Completed ROUTINE CULTURE [RM] Routine Lab 08/08/16 16:40 Ordered TROPONIN T Stat Lab 08/08/16 16:[address] W/POSS RFLX CULT [URINALYSIS] Stat Lab 08/08/16 18:00 Completed URINE CULTURE [RM] Routine Lab 08/08/16 18:32 Ordered 0.9% Sodium Chloride Inj [Ns] 1,000 ml Med 08/08/16 16:27 Discontinued .ROUTE As Directed 0.9% Sodium Chloride Inj [Ns] 1,000 ml Med 08/08/16 17:01 Active IV 50 mls/hr 0.9% Sodium Chloride Inj [Ns] 1,000 ml Med 08/08/16 17:01 Discontinued IV 999 mls/hr Acetaminophen Liquid [Tylenol Liquid] Med 08/08/16 16:50 Discontinued 650 mg .ROUTE .STK-MED ONE Acetaminophen Liquid [Tylenol Liquid] Med 08/08/16 16:59 Discontinued 650 mg PO NOW ONE Acetaminophen [Tylenol] Med 08/08/16 16:45 Discontinued 650 mg .ROUTE .STK-MED ONE CefTRIAXONE 1 GM/NS [Rocephin 1 gm/Ns] Med 08/08/16 18:19 Discontinued 1 gm in 50 ml .ROUTE As Directed CefTRIAXONE 2 GM/NS [Rocephin 2 gm/Ns] Med 08/08/16 17:59 Discontinued 2 gm in 50 ml IV NOW CefTRIAXONE [Rocephin] Med 08/08/16 18:19 Discontinued 1 gm .ROUTE .STK-MED ONE Diltiazem [Cardizem] Med 08/08/16 16:30 Discontinued 10 mg IV NOW ONE Ibuprofen [Motrin Liquid] Med 08/08/16 19:24 Discontinued 800 mg .ROUTE .STK-MED ONE Ibuprofen [Motrin] Med 08/08/16 18:46 Discontinued 800 mg PO NOW ONE Nitroglycerin Sl [Nitroglycerin] Med 08/08/16 16:30 Discontinued 0.4 mg SL NOW ONE Ondansetron [Zofran] Med 08/08/16 16:29 Discontinued 4 mg IV NOW ONE Promethazine [Phenergan] Med 08/08/16 16:59 Discontinued 12.5 mg IV NOW ONE Promethazine [Phenergan] Med 08/08/16 16:54 Discontinued 25 mg .ROUTE .STK-MED ONE Sodium Chloride 0.9% Med 08/08/16 16:59 Discontinued 10 ml INJ NOW ONE Oxygen Device Stat Oth 08/08/16 16:27 Active Result Diagrams: 08/08/16 16:30 08/08/16 16:30 - REASSESSMENT Reassessment #1 Status: unchanged (still febrile, otherwise stable) - CT/MRI 1 CT Study: Abdomen, Pelvis Impression: Normal - CONSULTS/PCP/HOSPITALIST Notification #1 *Consult/PCP/Hospitalist*: Dr Bhandari Time Discussed: 19:59 Reason/Comments: CRF, fever, nl cxr/ ct abd <Joao Llanes - Last Filed: 08/08/16 20:06> Departure <Beau Parisi I - Last Filed: 08/08/16 18:05> - Departure Date of Disposition Decision: 08/08/16 Time of Disposition Decision: 20:03 Certified Medical Emergency: Emergent - Critical Care Note This patient required my direct & personal management of CC.: No <Joao Llanes - Last Filed: 08/08/16 20:06> - Departure DIAGNOSIS: CRF (chronic renal failure) Qualifiers: Chronic kidney disease stage: stage 5 Qualified Code(s): N18.5 - Chronic kidney disease, stage 5 Hypertension Qualifiers: Hypertension type: secondary to other renal disorders Qualified Code(s): I15.1 - Hypertension secondary to other renal disorders; N28.89 - Other specified disorders of kidney and ureter Fever Qualifiers: Fever type: unspecified Qualified Code(s): R50.9 - Fever, unspecified Disposition: ADMITTED INPATIENT 09 Condition: Stable Referrals and Follow-Ups: Maggie Freed III, MD [Primary Care Provider] - This chart was documented by the indicated scribe, (Iris Washington Scribe) and accurately reflects the services I performed and decisions made by me, Beau Parisi MD, as attested by the provider's signature.
[2016-08-08] MEDS ORDERED: ROCEPHIN 1 GM/NS 1 GM/50 ML IVPB ONE (18:19)
[2016-08-08] MEDS ORDERED: ROCEPHIN ONE (18:19)
[2016-08-08 18:28] LABS: BILIRUBIN URINE NEGATIVE (NEGATIVE); BLOOD URINE TRACE (NEGATIVE); CLARITY CLEAR (CLEAR); COLOR YELLOW; LEUKOCYTES URINE 2+ (NEGATIVE); NITRITE URINE NEGATIVE (NEGATIVE); PROTEIN URINE 2+(100 mg/dL) mg/dL (NEGATIVE); UROBILINOGEN URINE NORMAL
[2016-08-08 18:31] LABS: URINE RBC <10 /HPF (<10)
[2016-08-08 18:32] LABS: URINE CAST NONE SEEN /LPF; URINE CRYSTAL NONE SEEN /HPF; URINE CULTURE PL NEEDED? YES; URINE EPITHELIAL CELLS <10 /HPF (<10); URINE SOURCE CLEAN CATCH
[2016-08-08] MEDS ORDERED: MOTRIN PO ONE (18:46)
[2016-08-08] MEDS ORDERED: MOTRIN LIQUID ONE (19:24)
--- NOTE | 2016-08-08 19:43 | Diag Imaging Result Doc PS360 ---
EXAM: ABDOMEN/PELVIS W/O CONTRAST - 08/08/2016 HISTORY: + Bearden sign, CRF, fever/vomiting TECHNIQUE: Without contrast per request of the referring provider. Dose reduction protocol. COMPARISON: Omar Norwood 06/14/2015 FINDINGS: There is limitation of detail due to the lack of administered contrast. The gallbladder is moderately distended. There are no calcified gallstones or pericholecystic inflammation identified. There is no biliary ductal dilatation apparent. The pancreas is mildly atrophic. There is no pancreatic mass or inflammation identified. There are no acute changes identified in the liver, spleen, or adrenal glands. There are right renal cysts. There are questionable nonobstructing stones in the in the bilateral kidneys versus atherosclerotic calcifications. There is no hydronephrosis. There are extensive atherosclerotic obscuration is noted. There are mildly enlarged retroperitoneal lymph nodes. There is no evidence of bowel obstruction. The appendix does not appear inflamed. There is no free air or gas containing abscess identified. There is no discrete pelvic mass or fluid collection identified. There is a Gomez catheter in the urinary bladder. IMPRESSION: Moderately distended gallbladder. No calcified gallstones or pericholecystic inflammation seen. Extensive atherosclerotic locations. Nonobstructing stones in bilateral kidneys versus components of atherosclerotic calcifications. No hydronephrosis. No bowel obstruction. No free air. No gas containing abscess. Electronically signed by rTent Hinton 08/08/2016 7:40 PM
[2016-08-08] MEDS ORDERED: ZOSYN 2.25 GM/NS 2.25 GM/50 ML IVPB IV SCH (20:00)
[2016-08-08] MEDS ORDERED: VANCOMYCIN IV PER PHARMACY MISC SCH (20:00)
[2016-08-08] MEDS: NS 1,000 ML IV SCH (22:30)
[2016-08-08] MEDS ORDERED: SODIUM CHLORIDE 0.9% INJ PRN (22:41)
[2016-08-08] MEDS ORDERED: TYLENOL PO PRN (22:41)
[2016-08-08] MEDS ORDERED: CUBICIN (FOR INPATIENT USE) 500 MG in NS 100 ML IV SCH (22:45)
[2016-08-08] MEDS: NORCO-10 PO PRN (23:35)
[2016-08-09 01:39] LABS: UR AMPHETAMINES QUAL NONE DETECTED (NONE DETECT); UR BARBITUATES QUAL NONE DETECTED (NONE DETECT); UR BENZODIAZEPIN QUAL NONE DETECTED (NONE DETECT); UR CANNABINOIDS QUAL NONE DETECTED (NONE DETECT); UR COCAINE QUAL NONE DETECTED (NONE DETECT); UR METHADONE QUAL NONE DETECTED (NONE DETECT); UR OPIATES QUAL PRESUMPTIVE POSITIVE (NONE DETECT); UR OXYCODONE QUAL NONE DETECTED (NONE DETECT); UR PCP QUAL NONE DETECTED (NONE DETECT)
--- NOTE | 2016-08-09 01:51 | HISTORY AND PHYSICAL ---
PRIMARY CARE PHYSICIAN: Dr. Sonu Johns. CHIEF COMPLAINT: Patient got a fever and left lower extremity cellulitis. HISTORY OF PRESENT ILLNESS: This is a 41-year-old female with a past medical history of end-stage renal disease, on dialysis, diabetes, and hypertension, who presented to the emergency department at [facility], complaining off high blood pressure and also fever. The patient is not a good historian, but she reports here in the hospital that she was having a fever that started today, along with chills. The patient was going to the wound clinic for this left lower extremity wound, and she was advised to come to the hospital. The patient at [facility], blood pressure was 214/108, with temperature of , and considering this patient is supposed to have dialysis tomorrow, patient was transferred over here for further evaluation and treatment. PAST MEDICAL HISTORY: 1. End-stage renal disease, on hemodialysis. 2. Uncontrolled hypertension. 3. Uncontrolled diabetes, type 2. PAST SURGICAL HISTORY: 1. Bilateral kgrbj-fyh-yqpmg amputation on both arms because of blood loss. 2. Right uaqxt-lpo-mtmw amputation. 3. Ankle fracture. ALLERGIES: Patient denies any drug allergies. SOCIAL HISTORY: Patient reports using drugs, intermittent cocaine, and she drinks alcohol socially. She lives by herself. FAMILY HISTORY: Positive for diabetes and cancer, but she does not remember exactly where. REVIEW OF SYSTEMS: Eleven systems were reviewed, and all symptoms are related to H P. PHYSICAL EXAMINATION: GENERAL: This is a 41-year-old female, chronically ill-looking and frail, lying in bed, in no acute distress. HEENT: Head is normocephalic, atraumatic. Anicteric sclerae and pale conjunctivae. Mucous membranes moist. NECK: Supple. No JVD noted. No carotid bruits. No lymphadenopathy. No thyromegaly. CARDIOVASCULAR: S1, S2 heard. No murmurs, gallops, or rubs. Regular rate and rhythm. RESPIRATORY: A few bibasilar crackles. The patient is not using any accessory muscles or heavy work of breathing. ABDOMEN: Soft, a little distended, but nontender to palpation. No signs of peritoneal irritation. Bowel sounds present. No organomegaly. EXTREMITIES: Bilateral nuazt-twr-qawpw amputation of both arms, and right wojyh-djw-lqis amputation, and left lower extremity with signs of infection in the left foot, covered by dressing. NEUROLOGICAL: Patient moves 4 extremities. Awake, but a little bit is sleepy. VITAL SIGNS: Temperature 103.2, heart rate 92, respiratory rate 16, blood pressure 151/53, here in [facility]. O2 saturation 100% on room air. LABORATORY DATA: White cell count 26.67, hemoglobin 11.2, hematocrit 34.5, platelets 275,000. BMP remarkable for creatinine 6.8, BUN 29. ASSESSMENT: 1. Left lower extremity cellulitis. 2. Uncontrolled diabetes mellitus, type 2. 3. Uncontrolled hypertension. 4. End-stage renal disease, on hemodialysis. PLAN: 1. The patient is going to be admitted to the hospital for the left lower lobe left lower extremity cellulitis. Patient is going to be started on daptomycin and Zosyn, renally dosed. Dr. Robbi leary from Infectious Disease will be consulted. If the patient is still having fever, we will use Tylenol for that. Blood cultures and urine culture have been ordered in the ER. 2. For end-stage renal disease on hemodialysis. will be consulted, and will continue with routine dialysis here. 3. For diabetes, we are going to check hemoglobin A1c. Will place this patient on sliding scale insulin. 4. For hypertension, we are going to restart her home medications, which includes clonidine and lisinopril. 5. Full recommendations to follow, according to the clinical situation of the patient. cc: Cali Mccormick MD
[2016-08-09] MEDS ORDERED: ZOSYN 2.25 GM/NS 2.25 GM/50 ML IVPB IV SCH (02:00)
[2016-08-09] MEDS: PRILOSEC PO SCH ×2 (05:32→08:37)
[2016-08-09] MEDS: HEPARIN SUBQ SCH ×3 (05:32→21:57)
[2016-08-09 06:04] LABS: BASO% 0.2 % (0.0-0.8); EOS# 0.01 X1000 (0.0-0.7); EOS% 0.1 % (0.0-10.0); HEMATOCRIT 30.6 % (37.0-47.0); HEMOGLOBIN 9.7 g/dL (12.0-16.0); IMM GRAN# 0.04 X1000 (0.0-0.04); IMM GRAN% 0.3 % (0.0-0.5); LYMPH% 5.7 % (20.5-51.1); MANUAL DIFF NEEDED? NO; MCHC 31.7 g/dL (33-37); MCV 97.8 FL (81-99); MONO# 0.64 X1000 (0.11-0.59); MPV 10.4 FL (7.4-10.4); NEUT% 89.7 % (42.2-75.2); PLT 257 X1000 (130-400); RBC 3.13 XMIL (4.2-5.4)
[2016-08-09 06:12] LABS: CALCIUM 8.9 mg/dL (8.8-10.2); POTASSIUM 4.9 mmol/L (3.5-5.1)
[2016-08-09 06:17] LABS: HEMOGLOBIN A1C 3.9 % (4.8-6.0)
[2016-08-09] MEDS: NORCO-10 PO PRN ×4 (06:34→21:56)
[2016-08-09] MEDS: HUMALOG SUBQ SCH ×3 (06:58→15:41)
[2016-08-09] MEDS: PHENERGAN IV PRN (07:06)
[2016-08-09] MEDS: PRINIVIL PO SCH ×2 (08:22→21:57)
[2016-08-09] MEDS: CATAPRES PO SCH ×2 (08:22→21:57)
[2016-08-09] MEDS ORDERED: NS 2,000 ML MISC PRN (08:29)
[2016-08-09] MEDS ORDERED: HEPARIN IV PRN (08:29)
[2016-08-09] MEDS ORDERED: TIGHT: 0.2 ML/HR MISC PRN (08:29)
[2016-08-09] MEDS ORDERED: NS 2,000 ML ONE (09:18)
[2016-08-09] MEDS ORDERED: HEPARIN ONE (09:18)
[2016-08-09] MEDS ORDERED: VANCOMYCIN 1 GM/NS 1 GM/250 ML IVPB IV SCH (09:30)
[2016-08-09] MEDS ORDERED: MAXIPIME 1 GM/NS 1 GM/50 ML IVPB IV SCH (09:30)
--- NOTE | 2016-08-09 11:18 | CONSULTATION ---
DATE OF CONSULTATION: 08/09/2016 CONCLUSION: Patient is admitted to the hospital with an infection of her left ankle. When I took the culture, the swab did extend deep, and I am suspicious she may have an underlying osteomyelitis present. RECOMMENDATIONS: I have switched the patient's antibiotics from daptomycin and Zosyn to vancomycin 1 g IV after each dialysis and cefepime 1 g IV after each dialysis. I have also ordered an x-ray and bone scan of the left ankle and, finally, I have ordered a Doppler arterial study of the left leg. DISCUSSION: The patient tells me that approximately 3 days ago she started having fever, elevated glucose, and left foot pain that ulcerated at the ankle. The ankle has started to swell. The patient also had an episode of vomiting and abdominal pain but both of these symptoms have improved and have pretty much disappeared. LABORATORY STUDIES: Thus far, the CBC shows a white count of 15,840. Hemoglobin 9.7 and platelet count 257,000. Creatinine 7.6. GFR is 7. Liver function studies are normal. Urinalysis showed white cells and bacteria, however, the urine culture thus far is negative. As mentioned above, the urine showed white cells and bacteria but the urine culture thus far is negative. Blood cultures are pending. Swab for influenza is negative. Chest x-ray shows no pneumonia. CT scan of the abdomen and pelvis shows a distended gallbladder. PAST MEDICAL HISTORY/REVIEW OF SYSTEMS: Eyes and Ears: She denies difficulty hearing or seeing. Neck: No stiffness. Respiratory: No cough or shortness of breath. Cardiovascular: No chest pain or palpitations. GI: See above for description of vomiting and abdominal pain. She is not having diarrhea. Genitourinary: No dysuria. Endocrine: The patient has diabetes but not thyroid disease. Hematologic: The patient is anemic. She does not have a bleeding tendency. Bones, joints, muscles: The patient has right wfymu-pfu-xuwl amputation and bilateral below the elbow amputations as well. The remainder of the patient's review of systems was completed and was negative. Hypertension and peripheral vascular disease. INFECTIOUS DISEASE HISTORY: Positive for pneumonia and UTI. 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 PREVIOUS HOSPITALIZATIONS AND OPERATIONS: She is at Labor and Delivery. Placement of a right upper extremity right AV fistula. She has had right cppik-kpf-ditq amputation and bilateral below- the-elbow amputations as well. The patient also has a right arm AV fistula present for use of doing dialysis. She has had placement of an AV fistula in the right upper extremity. She has had bilateral below the elbow amputations and right psoss-iwm-qyoq amputations. She has had labor and delivery also. MEDICAL DISEASES: Positive for diabetes mellitus, hypertension, and peripheral vascular disease. FAMILY HISTORY: Positive for cancer, diabetes mellitus, hypertension, and stroke. SOCIAL HISTORY: [place] She stopped smoking cigarettes 15 years ago. She occasionally drinks alcoholic beverage. She was using marijuana but stopped 3 months ago. The patient is single. She lives alone. ALLERGIES: She has no known drug allergies. HOME MEDICATIONS: 1. Promethazine. 2. Zofran. 3. Lisinopril. 4. Hydrocodone. 5. Clonidine. PHYSICAL EXAMINATION: Vital Signs: Temperature is 98.1 degrees, pulse 74, respirations 20, blood pressure 158/68. The patient weighs 230 pounds. Generally, this is an obese, young female, ill- appearing, young female. She is in no acute distress. Head, eyes, ears, nose, and throat: She can hear my spoken words and see near objects. There was no white coating to the tongue. Neck: No meningismus. Thorax: No increased AP diameter of the chest. Lungs clear to auscultation. Cardiovascular: Heart rate is regular. Abdomen is soft and nontender. Neurologic: The patient is awake. She can move her extremities. There is no tremor. She has had AV fistula created in the right arm. She is unable to walk. She patient could hear my spoken words and see near objects. No there were no white is no white coating to the tongue. Neck: No meningismus. Thorax: No increased AP diameter of the chest. Lungs clear to auscultation. Cardiovascular: Heart rate is regular. Abdomen: Soft and nontender. Neurologic: Patient is awake. She can move her extremities. There is no tremor. Extremities: Bilateral below elbow amputations, right below knee amputation, left leg with lateral ankle ulcer surrounded by erythema. ASSESSMENT: For the patient's left foot, I have taken a deep culture from the lateral ulcer. I have ordered a chest x-ray and bone scan of the left foot and also ordered Doppler arterial studies. Thank you for the consult. cc: Pieter Culp MD MTDD
[2016-08-09] MEDS ORDERED: EPOGEN SUBQ ONE (11:32)
--- NOTE | 2016-08-09 11:59 | PROGRESS NOTE ---
DATE: 08/09/2016 She is currently receiving hemodialysis. Tolerating well a 2 L ultrafiltration target with 2 potassium bath. Her antibiotics have been dosed appropriately for her renal dysfunction. cc: Emilio Chadwick MD
--- NOTE | 2016-08-09 12:06 | PROGRESS NOTE ---
DATE: 08/09/2016 SUBJECTIVE: The patient is feeling well. She has no complaint. No fever. No chills. No nausea, vomiting, or diarrhea. OBJECTIVE: Vital Signs: Blood pressure 158/68, pulse 74, respirations 20, temperature 98.1 degrees, and saturation 100% on room air. General Appearance: Well-developed, well-nourished black female in no acute distress. HEENT: Anicteric. Clear conjunctivae. Neck: Supple. No JVD. No bruit. Cardiovascular: S1 and S2. Normal rate and rhythm. No murmur, rubs, or gallops. Pulmonary: Clear to auscultation bilaterally. Gastrointestinal: Soft, nontender, nondistended. Normoactive bowel sounds. Musculoskeletal: No clubbing, cyanosis, or edema. LABORATORY: White count today 15.84, hemoglobin 9.7, hematocrit 30.6, platelets of 257,000. Chemistry: Sodium 136, potassium 4.9, chloride 96, bicarbonate 23, BUN 32, creatinine 7.6, glucose 72. IMAGING: CAT scan of the abdomen and pelvis reveals a moderately distended gallbladder, but with no evidence of stone. Chest x-ray showed just stable to decreased pulmonary. ASSESSMENT AND PLAN: This is a 41-year-old white male, admitted to the hospital for infected left ankle. 1. Left ankle infection. They consulted Infectious Disease on admission. The patient is currently on vancomycin and cefepime. Will get x-ray of the bones of the ankle to see if there is any evidence of bone involvement. 2. End-stage renal disease. The patient is getting dialysis Friday, Friday, and Friday. 3. Hypertension. Continue clonidine and lisinopril. 4. Diabetes. We will continue sliding scale insulin. CODE STATUS: The patient is a full code.
--- NOTE | 2016-08-09 12:07 | CONSULTATION ---
DATE OF CONSULTATION: 08/09/2016 REASON FOR CONSULTATION: ESRD management. HISTORY OF PRESENT ILLNESS: Ms. Wheat is a 41-year-old, black female who is well known to us. She has severe diabetes with severe peripheral vascular disease with amputations both upper extremities and right lower extremity and Charcot ankle with decubitus and chronic infection on the left foot. She came to the emergency room by her report for high blood pressure. The chart relates that she is having fever and chills. She was transferred from [place] to [facility] to be admitted. She has been seen by Dr. Culp who has been treating her with IV vancomycin and cefepime. Her other home medications were continued. PAST MEDICAL HISTORY: As above. ALLERGIES: None. HOME MEDICATIONS: Listed. SOCIAL HISTORY: Lives alone. She uses alcohol and cocaine. FAMILY HISTORY/REVIEW OF SYSTEMS: Otherwise noncontributory. She is not a very good historian. OBJECTIVE: Vital Signs: Blood pressure 158/68, heart rate 74, respirations 20. T-max 103.2 degrees, afebrile currently. General: She is in no acute distress. Skin: Warm and dry. HEENT: Conjunctivae are pink. Oropharynx is dry. Neck: Neck veins are not visible. Heart: Regular. Lungs: Have equal breath sounds. No crackles. Abdomen: Soft. Bowel sounds present. Extremities: Have no edema. Left ankle ulcer. IMPRESSION: 1. End-stage kidney disease. Continue her routine hemodialysis today. She is currently on treatment. 2. Electrolytes/acid base in target. 3. Anemia. Restart erythropoietin. 4. Hypertension improved. Continue home medications. cc: Emilio Chadwick MD
--- NOTE | 2016-08-09 20:07 | Diag Imaging Result Doc PS360 ---
EXAM: ANKLE COMPLETE LEFT INDICATION: osteomyelitis TECHNIQUE: 3 views COMPARISON: 07/25/2016 FINDINGS: Marked erosion and irregularity at the ankle that was seen on the previous study is unchanged. As was seen on the previous study, there is extensive talar collapse and erosion of the tibial plafond. No new bony lesions are appreciated. Soft tissue edema and extensive vascular calcification is again noted surrounding the ankle and foot similar to the previous study. IMPRESSION: No significant change as compared to the recent prior study. Electronically signed by Mariusz Pollock 08/09/2016 8:04 PM
[2016-08-10] MEDS: NS 1,000 ML IV SCH ×3 (01:35→17:42)
[2016-08-10] MEDS: HUMALOG SUBQ SCH ×5 (01:36→22:39)
[2016-08-10] MEDS: HEPARIN SUBQ SCH ×3 (06:15→22:39)
[2016-08-10] MEDS: PRILOSEC PO SCH (06:16)
[2016-08-10] MEDS: NORCO-10 PO PRN ×3 (09:36→22:52)
[2016-08-10] MEDS: CATAPRES PO SCH ×3 (09:36→17:43)
[2016-08-10] MEDS: PRINIVIL PO SCH ×2 (09:36→22:38)
--- NOTE | 2016-08-10 13:49 | PROGRESS NOTE ---
DATE: 08/10/2016 SUBJECTIVE: The patient wanted the catheter out. She feels better. No fever. No chills. No nausea or vomiting. No diarrhea. OBJECTIVE: Vital Signs: Blood pressure 181/78, pulse of 67, respiration 18, temperature 98.8 degrees, saturation 95% on room air. General Appearance: Well-developed, well-nourished, white female in no acute distress. HEENT: Anicteric sclerae. Clear conjunctivae. Neck is supple. No JVD. No bruit. Cardiovascular: S1, S2. Normal rate and rhythm. No murmur, rub, or gallops. Pulmonary: Clear to auscultation bilaterally. GI: Soft, nontender, nondistended. Normoactive bowel sounds. Musculoskeletal: No clubbing, cyanosis, or edema. The patient has bilateral upper extremity amputees and right lower extremity amputees. Left deformed foot with cellulitis at on this lateral medialis. LABORATORY: Her white count is 15.84, hemoglobin 9.7, hematocrit of 30.6, platelets of 257,000. Chemistry was not ordered for today. ASSESSMENT AND PLAN: This is a 41-year-old white female admitted to the hospital for altered mental status. 1. Altered mental status probably secondary to infection of her wound. cultures are pending. The patient on cefepime and vancomycin. Bone scan is still pending. ID is following. 2. Hypertension, uncontrolled. We will increase clonidine to 0.2 mg 3 times a day and will monitor the patient in-house. 3. We will discontinue her Gomez catheter. 4. End-stage renal disease. The patient had dialysis yesterday. Dialysis again on Friday. 5. Diabetes. We will continue sliding scale insulin. 6. Deep vein thrombosis prophylaxis. The patient on heparin number. 7. CODE STATUS: The patient is a FULL CODE.
[2016-08-11] MEDS: NORCO-10 PO PRN ×2 (04:26→12:25)
[2016-08-11] MEDS: NS 1,000 ML IV SCH ×3 (04:26→19:30)
[2016-08-11] MEDS: HUMALOG SUBQ SCH ×4 (07:43→23:22)
[2016-08-11] MEDS: HEPARIN SUBQ SCH ×3 (07:43→23:20)
[2016-08-11] MEDS: PRILOSEC PO SCH (07:43)
[2016-08-11] MEDS: PRINIVIL PO SCH ×2 (08:41→23:21)
[2016-08-11] MEDS: CATAPRES PO SCH ×3 (08:41→17:03)
[2016-08-11] MEDS ORDERED: APRESOLINE IV PRN (09:13)
--- NOTE | 2016-08-11 10:09 | PROGRESS NOTE ---
DATE: 08/11/2016 SUBJECTIVE: The patient is feeling well. No fever. No chills. No nausea, vomiting, or diarrhea. OBJECTIVE: Vital Signs: Blood pressure was 200/110, treated with hydralazine p.r.n. General Appearance: Well-developed, well-nourished, black female in no acute distress. HEENT: Anicteric sclerae. Clear conjunctivae. Neck: Supple. No JVD. No bruit. Cardiovascular: S1 and S2. Normal rate and rhythm. No murmur, rubs, or gallops. Pulmonary: Clear to auscultation bilaterally. GI: Soft, nontender, nondistended. Normoactive bowel sounds. Musculoskeletal: She has a left heel wound noted, right AKA. Laboratory: White count 15.84, hemoglobin 9.7, hematocrit of 30.6, platelets of 257,000. Chemistry is not available today. ASSESSMENT AND PLAN: This is a 41-year-old admitted to hospital for a decubitus ulcer. 1. Decubitus ulcer. We will keep the patient on vancomycin for now. Stop the cefepime. Waiting for bone scan nuclear medicine report to determine the length of treatment. Infectious disease is on board. 2. Hypertension, uncontrolled. We added nifedipine on top of her lisinopril and clonidine, as needed hydralazine to get it under control. 3. End-stage renal disease. The patient is on hemodialysis 3 days a week. Nephrology is following. 4. Deep vein thrombosis prophylaxis. The patient is on heparin. 5. Code status. The patient is a full code.
[2016-08-11] MEDS: PROCARDIA ER PO SCH (12:27)
[2016-08-11] MEDS: PHENERGAN IV PRN (14:33)
[2016-08-12] MEDS: NORCO-10 PO PRN ×2 (00:30→09:26)
[2016-08-12] MEDS: HEPARIN SUBQ SCH ×2 (06:10→13:51)
[2016-08-12] MEDS: PRILOSEC PO SCH (06:10)
[2016-08-12] MEDS: NS 1,000 ML IV SCH (06:10)
[2016-08-12 06:19] LABS: MANUAL DIFF NEEDED? NO
[2016-08-12 06:23] LABS: BASO% 0.3 % (0.0-0.8); EOS# 0.46 X1000 (0.0-0.7); EOS% 6.3 % (0.0-10.0); HEMATOCRIT 29.2 % (37.0-47.0); HEMOGLOBIN 9.6 g/dL (12.0-16.0); LYMPH# 1.64 X1000 (1.2-3.4); LYMPH% 22.3 % (20.5-51.1); MCH 31.7 PG (27-31); MCHC 32.9 g/dL (33-37); MCV 96.4 FL (81-99); MONO# 0.35 X1000 (0.11-0.59); MONO% 4.8 % (1.7-9.3); MPV 10.5 FL (7.4-10.4); NEUT% 66.3 % (42.2-75.2); PLT 301 X1000 (130-400); RBC 3.03 XMIL (4.2-5.4)
[2016-08-12 06:43] LABS: CALCIUM 9.3 mg/dL (8.8-10.2); POTASSIUM 4.2 mmol/L (3.5-5.1)
[2016-08-12] MEDS: HUMALOG SUBQ SCH ×3 (07:31→15:35)
[2016-08-12] MEDS ORDERED: TAZIDIME 1 GM in NS 50 ML IV SCH (08:15)
[2016-08-12] MEDS ORDERED: EPOGEN SUBQ SCH (09:00)
--- NOTE | 2016-08-12 09:04 | PROGRESS NOTE ---
DATE: 08/12/2016 PRESENT ILLNESS: The patient has infection of her left ankle which I think involves the bone. We have cultured Staphylococcus epidermidis from the ankle. However, gram negative rods were seen on Gram stain but thus far have not grown out. Also, the patient's blood culture was positive for streptococcus. MEDICATIONS: The patient is on vancomycin now which is being given after every dialysis. PHYSICAL EXAMINATION: Vital Signs: Temperature is 98.2 degrees, pulse 75, respirations 18, blood pressure 196/60. Generally: This is an ill-appearing, young female. She is in no acute distress. Lungs: Clear to auscultation. Cardiovascular: Regular heart rate. Abdomen: Soft and nontender. Extremities: The patient has an AV fistula for dialysis in the right upper extremity. She has bilateral below the elbow amputations and a right leg below the knee amputation. The left ankle was swollen and had a deep ulcer laterally. When I 1st saw her ankle today, I looked at it. It is much less swollen than the ulcerated area has filled in. LAB AND X-RAY: I have ordered a bone scan on the patient's ankle and the result is pending. The ankle x-ray showed there was no definite finding of osteomyelitis. However, when I did get the culture from her ankle, it appeared to go deep. Clinically, I think she probably does have osteomyelitis. The patient's CBC shows a white count of 7360, hemoglobin 9.6, and platelet count 301,000. Creatinine is 7.8. GFR is 7. As mentioned above, the left ankle grew Staphylococcus epidermidis. However, on Gram stain, a gram-negative carson was seen. Blood cultures, 1 blood culture grew streptococcus. ASSESSMENT AND PLAN: The patient has an ankle infection with Staphylococcus epidermidis and most likely there is gram-negative carson which has not grown. The streptococcal blood isolate could be a contaminant but could represent a pathogen that was coming from the patient's left ankle or possibly from her arteriovenous fistula. In any event, I think I need to treat the patient for the staphylococcus, the streptococcus, and the gram-negative carson that was seen on Gram stain but did not grow out. For this purpose, I am plan to treat the patient with vancomycin 1 g and ceftazidime 1 g, each given after dialysis for a total of 6 weeks. The results of the bone scan are pending. Patient's comorbidities include the following: She has end-stage renal disease. She is on dialysis. She has diabetes mellitus and peripheral vascular disease. She did smoke cigarettes but stopped 15 years ago. She does use marijuana but stopped 3 months ago. ADDENDUM: Bone scan showed nonspecific results. 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 cc: Pieter Culp MD MTDD
[2016-08-12] MEDS: CATAPRES PO SCH ×2 (09:18→13:51)
[2016-08-12] MEDS: PROCARDIA ER PO SCH (09:18)
[2016-08-12] MEDS: PRINIVIL PO SCH (09:18)
--- NOTE | 2016-08-12 10:12 | Diag Imaging Result Doc PS360 ---
3 PHASE BONE SCAN - 08/09/2016 INDICATION: osteomyelitis of L ankle TECHNIQUE: 26.1 mCi of MDP was administered COMPARISON: Ankle x-rays from 08/09/2016 FINDINGS: There is good perfusion of the foot and ankle. On the blood pool phase, there is severely increased activity surrounding the entire left ankle. The left ankle itself demonstrates abnormal angulation, subluxation, and severe erosion with collapse of the talar dome on the prior x-ray. This demonstrates severe, intense uptake at the distal tibia and the talar surfaces on the delayed images. IMPRESSION: Nonspecific, abnormally increased perfusion, blood pool phase, and delayed phase uptake at the chronically damaged left ankle. 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 Electronically signed by Sonu Murphy 08/12/2016 10:10 AM
--- NOTE | 2016-08-12 11:02 | PROGRESS NOTE ---
DATE: 08/12/2016 SUBJECTIVE: Patient is sitting up in bed. Wanting to know if she can go home. OBJECTIVE: Vital Signs: Temperature 98.2 degrees, pulse 75, respiratory rate 18, blood pressure 196/60. Intake 1.3 L. Output 250 mL. PHYSICAL EXAMINATION: General: This is a middle-aged female, sitting up in bed. She is awake, alert, no acute distress. HEENT: Normocephalic, atraumatic. She has glasses on. Oral mucosa moist. Neck: Supple. Trachea midline. No JVD. Cardiovascular: Regular rate and rhythm. Pulmonary: Equal excursion. She is clear bilaterally. Abdomen: Soft, positive bowel sounds. Extremities: She has a wrap to her left lower extremity. She has a hard and thickened scaly skin. She has trace pretibial edema. 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 Integumentary: Skin is warm and dry otherwise. LAB DATA: WBC of 7.3, hemoglobin 9.6, sodium 136, potassium 4.2, CO2 20, BUN 39 , creatinine 7.8, calcium 9.3. ASSESSMENT AND PLAN: 1. End-stage renal disease management. Her routine dialysis day is Friday. We will continue this while she is in the hospital and as an outpatient. 2. Electrolytes, acid-base balance, anemia. These are in target. Will address any issues again with dialysis. 3. Hypertension. Improved. Continue home medications. 4. Staphylococcus epidermidis infection to the ankle followed by Infectious Disease. We will arrange OP abx. rg DISPOSITION: We would be in agreement coli the patient to be discharged at the discretion of the primary and infectious disease. If she remains in the hospital in the morning, we will dialyze her as per routine. Seen, data reviewed, discussed with Keith Rivers on 08/12/16. I agree with the above assessment and plan of care. rg Dictated by PHILL Chowdary for Emilio Chadwick MD cc: Emilio Chadwick MD [facility]
[2016-08-12 15:08] VITALS: BP 134/58
--- NOTE | 2016-08-12 15:33 | DISCHARGE SUMMARY ---
ADMISSION DATE: 08/08/2016 DISCHARGE DATE: 08/12/2016 And discharged 08/12/2016. CONSULTATIONS: 1. Dr. Pieter Culp with Infectious Disease. 2. Dr. Emilio Chadwick with Nephrology. PERTINENT PROCEDURES: 1. Abdomen and pelvis CT showed a moderately distended gallbladder, no calcified gallstones or pericholecystic inflammation seen. Extensive atherosclerotic locations, nonobstructing stones in bilateral kidneys versus components of atherosclerotic calcifications, no hydronephrosis, no bowel obstruction. No free air. No gas containing abscesses. 2. Chest x-ray showed stable to mildly decreased cardiomegaly, stable mild prominence of vascular markings. 3. Left ankle x-ray showed marked erosions and irregularly at the ankle that were seen on previous study that is unchanged. 4. 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 DISCHARGE DIAGNOSES: 1. End-stage renal disease. The patient will continue on her regular scheduled hemodialysis Friday, , Friday. Stable. Electrolytes, acid base, anemia are on target. 2. Hypertension improved. 3. Staphylococcus epidermidis of the left ankle. Patient will continue on antibiotics with vancomycin as well as ceftazidime as per Dr. Pieter Culp. These will be given after dialysis for a total of 6 weeks. 4. Uncontrolled diabetes mellitus type 2. HOSPITAL COURSE: Mr. Wheat is a 41-year-old female who carries a past medical history of end- stage renal disease on hemodialysis Friday, , Friday, hypertension, uncontrolled diabetes, presented to the ED at [place] [facility] complaining of high blood pressure and fever. [facility] extremity [facility]. They advised her to come to the hospital. She was seen at the ED at [place]. Her blood pressure was noted to be 214/108. The patient was transferred to [facility] so she could remain on her regular hemodialysis schedule. She was started on IV antibiotics and consult for infectious disease as well as Nephrology. She was restarted on her home blood pressure medications as well as placed on sliding scale insulin. She did undergo a nuclear bone scan that just showed neuropathic joint disease. Her culture for her wound grew out Staphylococcus epidermidis. She was continued on her regular scheduled dialysis. Her electrolytes, acid-base and anemia have all remained in target. She will receive her vancomycin as well as ceftazidime after each dialysis appointment. She is being discharged to [facility] rehab. Vital signs at time of her discharge. Temperature 98.5 degrees, heart rate 69, respirations 20, blood pressure 134/58, O2 is 100% on room air. DISCHARGE DIET: Diabetic. DISCHARGE MEDICATIONS: As per Dr. Bhandari. Please see MAR. FOLLOWUP: Patient is being discharged to [facility] rehab. She will need to follow up with Dr. Pieter Culp in 2 weeks as well as her primary care physician after rehab. Patient can return to the ED for any worsening of symptoms. DISCHARGE TIME: 35 minutes. Patient seen and examined. Agree with PHILL note. It reflects my assessment and plan. Dictated by PHILL Liriano for Cali Mccormick MD cc: Cali Mccormick MD MTD
--- NOTE | 2016-08-13 09:45 | PROGRESS NOTE ---
DATE: 08/13/2016 SUBJECTIVE: The patient was discharged yesterday. I called Dr. Chadwick and asked him if he would order for the patient vancomycin 1 g and ceftazidime 1 g, both to be given after every dialysis for a period of 6 weeks. I will be seeing the patient in followup in my office at 3 weeks and then again at 6 weeks. cc: Pieter Culp MD
--- NOTE | 2016-08-14 12:05 | VASCULAR LAB ---
PROCEDURE NAME: Arterial Bilateral Legs - 08/09/2016 LEFT LOWER EXTREMITY ARTERIAL STUDY: REFERRING PHYSICIAN: Dr. Pieter Culp. GYNECOLOGY TEACHER: Maile Red RVT. INDICATIONS: The patient is a diabetic and has high blood pressure, has a history of smoking and has an ulceration, left foot. ICD-10 L97.509. FINDINGS: The patient has amputations to the right and left lower arms and also her right leg. She has dialysis access in her right upper arm. FINDINGS: Her systolic left brachial blood pressure was 200 mmHg. Left high thigh: 250 mmHg. Left low thigh 250 mmHg. Left calf 250 mmHg. Left ankle 250 mmHg. Left great toe 88 mmHg. There is good pulsatile waveforms to the ankle of the left foot but then her pulse waveforms diminished in the left great toe. At rest, she has a falsely elevated ankle- brachial index of 1.25. INTERPRETATION: She has good pulsatile flow to the left ankle. The pulse way forms diminished in the left foot consistent with small vessel disease. Her pressures were falsely elevated involving her left lower extremity due to noncompliance of her arteries. cc: MD Pieter Schwartz MD
== END 2016-08-12 16:44 ==
LOC: P.ED 15:16 → SUATTDRO 20:29 → 4N 20:29
PROVIDERS: ATTEND Internal Medicine

== ENCOUNTER 2016-10-04 07:44 | Inpatient (IN) ==
[2016-10-04] MEDS ORDERED: LABETALOL IV ONE ×3 (08:08→10:18)
--- NOTE | 2016-10-04 08:15 | PROVIDER DOCUMENTATION ---
HPI-General Adult - General Chief Complaint: Unresponsive Stated Complaint: AMS Time Seen by Provider: 10/04/16 08:02 Source: EMS Unable to obtain history due to:: other (and Nurse @ [facility] was not familiar with pt ) Allergies/Adverse Reactions: Patient Allergies Allergy/AdvReac Type Severity Reaction Status Date / Time No Known Allergies Allergy Verified 10/04/16 08:56 Home Medications: Home Medication List Medication Instructions Recorded Confirmed Last Taken Type Lisinopril 40 mg PO BID 10/10/14 10/04/16 10/03/16 22:00 History Ondansetron HCl [Zofran] 1 tab PO Q6H PRN PRN #15 tablet 07/18/16 10/04/1610/03 Rx Clonidine [Catapres] 0.2 mg PO TID #90 tablet 08/12/16 10/04/16 10/03/16 22:00 Rx Nifedipine E.r. [Procardia ER] 60 mg PO DAILY #60 tablet 08/12/16 10/04/1610/03 21:00 Rx Diphenhydramine [Benadryl] 25 mg PO QHS 09/02/16 10/04/16 Unknown History Hydrocodone/APAP 10 mg/325 mg 1 tab PO Q6H PRN PRN #30 tablet 09/17/16 10/04/16 10/03/16 Rx [Bighorn-10] Ranitidine HCl [Ranitidine HCl] 150 mg PO BID 10/04/16 10/04/16 10/03/16 History - History of Present Illness -Gen Adult Nature of Presenting Problems: pt brought in from [facility] for AMS. Pt reportedly is normally alert and oriented. LAst reported to be NL @2300 last night. Nurse on duty this am, has not cared for this pt before, admitted that was not familiar with her. Pt is on dialysis, unk when she last had dialysis Location of Pain/Injury: reports: none Quality of Pain: reports: none Onset/Duration: reports: other (last seen NL @ 2300 last night) Timing: reports: still present Modifying Factors: improves with: nothing Review of Systems - Adult - REVIEW OF SYSTEMS - ADULT ROS:: unobtainable per condition Constitutional: reports: no symptoms reported Neurological: reports: other (unresponsive) Past History - Adult - PAST MEDICAL HISTORY-ADULT Review of Records: reports: Medications Reviewed Major Childhood Illnesses: reports: denies history Cardiovascular: reports: cardiac disease, CHF, HTN Respiratory: reports: asthma Gastrointestinal: reports: GERD Obstetrical/Gynecological: reports: denies history Genitourinary: reports: dialysis, kidney disease (CKD) Musculoskeletal: reports: other (right BKA, bilat forearm amputations) Neurological: reports: denies history Endocrine/Immune: reports: Diabetes Other Conditions: reports: denies history - PRIOR SURGERIES/PROCEDURES Surgical/Procedure History: reports: tonsillectomy, other (ear sx/dialysis shunt /BKA right leg/bilat forearm amputation) - PRIOR HOSPITALIZATIONS Prior Hospitalizations: reports: for other non-related - IMMUNIZATION STATUS Childhood Immunizations: See Nurse Assessment Flu Vaccine: See Nurse Assessment - FAMILY HISTORY Family History: reviewed, not pertinent - SOCIAL HISTORY Smoking: denies Physical Exam-General - PHYSICAL EXAM-ADULT Initial Vital Signs Reviewed: Yes - CONSTITUTIONAL General Appearance: slow to respond, other (then is slow, sl slurred, one word answers) - EYES Eyes: PERRL/EOMI, pink conjunctivae - HEAD, EARS, NOSE, MOUTH & THROAT HENMT: normocephalic/atraumatic, moist mucous membranes, normal ENT inspection - NECK Neck: full range of motion, supple - RESPIRATORY Respiratory: lungs clear, normal breath sounds, no pleuratic chest pain, no respiratory distress, no accessory muscle use - CARDIOVASCULAR Cardiovascular: regular rate, rhythm, no edema - GASTROINTESTINAL (ABDOMEN) Abdominal Exam: non tender, soft - MUSCULOSKELETAL Extremity: other (L BKA, Bilt UE amputations) - SKIN Integumentary: normal color, normal turgor, warm/dry - NEUROLOGIC Neurologic: other (arouses to voice, slow, sl slurred responses, simple responses only) - PSYCHIATRIC Psych/Mental Status: other (oriented to name only) Progress - PLAN OF CARE/RESULTS Progress/Plan/Lab Results: Vital Signs - 8 hr 10/04/16 08:01 10/04/16 08:02 Pulse Rate 76 76 Respiratory Rate 10 L 10 L Blood Pressure 233/122 233/122 O2 Sat by Pulse Oximetry 98 98 Orders Category Date Time Status CHEST-PORTABLE [RAD] Stat Exams 10/04/16 08:09 Ordered HEAD W/O CONTRAST [CT] Stat Exams 10/04/16 08:06 Ordered ABG [RESP] Stat Lab 10/04/16 08:06 Ordered BLOOD CULTURE [BLDCUL] Stat Lab 10/04/16 08:06 Uncollected CBC WITH DIFF [HEME] Stat Lab 10/04/16 08:06 Ordered COMPREHENSIVE METABOLIC PANEL [CHEM] Stat Lab 10/04/16 08:06 Uncollected LACTATE, PLASMA [CHEM] Stat Lab 10/04/16 08:06 Uncollected URINALYSIS W/POSS RFLX CULT-1 [URINALYSIS] Stat Lab 10/04/16 08:06 Uncollected URINE DRUG SCREEN Stat Lab 10/04/16 08:06 Uncollected Labetalol Med 10/04/16 08:08 Once 40 mg IV NOW ONE Result Diagrams: 10/04/16 08:23 10/04/16 08:26 - EKG 1 Time of EKG reading by physician:: 07:58 EKG Read and Signed by:: Ambrocio Benjamin EKG Interpretation (*Must complete 3 of following elements*): Abnormal Rate: 75 Rhythm: sinus Tunas: normal ST Wave: non-specific ST changes Comments: prolonged QT Departure - Departure Date of Disposition Decision: 10/04/16 Time of Disposition Decision: 09:00 DIAGNOSIS: Altered mental status Qualifiers: Altered mental status type: stupor Qualified Code(s): R40.1 - Stupor Hypertension Qualifiers: Hypertension type: renovascular hypertension Qualified Code(s): I15.0 - Renovascular hypertension Chronic kidney disease (CKD) Qualifiers: Chronic kidney disease stage: on chronic dialysis Qualified Code(s): N18.6 - End stage renal disease; Z99.2 - Dependence on renal dialysis Disposition: ADMITTED INPATIENT 09 Certified Medical Emergency: Emergent Condition: Fair Referrals and Follow-Ups: None,PCP [Primary Care Provider] - - Critical Care Note This patient required my direct & personal management of CC.: No Attestation - Physician/ THU Attestation Patient care was provided by Advanced Practice Provider:: No The physician spent face to face time with patient:: Yes (Since no THU was on duty, was required to spend face to face time) Advanced Practice Provider documentation review:: Supervising physician onsite and consulted in the evaluation and care of this patient. The physician did have a face to face encounter with the patient.
[2016-10-04 08:35] LABS: MANUAL DIFF NEEDED? NO
[2016-10-04 08:37] LABS: BASO% 0.3 % (0.0-0.8); EOS# 0.36 X1000 (0.0-0.7); EOS% 5.8 % (0.0-10.0); HEMATOCRIT 33.8 % (37.0-47.0); HEMOGLOBIN 10.8 g/dL (12.0-16.0); LYMPH# 1.08 X1000 (1.2-3.4); LYMPH% 17.4 % (20.5-51.1); MCH 30.7 PG (27-31); MONO# 0.49 X1000 (0.11-0.59); MONO% 7.9 % (1.7-9.3); NEUT% 68.6 % (42.2-75.2); PLT 215 X1000 (130-400); RBC 3.52 XMIL (4.2-5.4)
[2016-10-04 08:41] LABS: ALLEN TEST NO; BE 1.5 mmoll (-3.0-3.0); BLOOD TYPE ARTERIAL; DRAW SITE R FEMORAL; METHB 0.9 % (0.0-1.5); PCO2(98.6) 43 mmHg (35-45); PO2(98.6) 58 mmHg (60-100); SAMPLE BLOOD; SAO2 92.6 % (95.0-100.0); THB 11.1 g/dL (11.5-17.4)
[2016-10-04 08:44] LABS: MODALITY ROOM AIR
[2016-10-04 09:01] LABS: CALCIUM 9.5 mg/dL (8.8-10.2); POTASSIUM 4.4 mmol/L (3.5-5.1); TOTAL BILIRUBIN 0.42 mg/dL (0.20-1.00); TOTAL PROTEIN 7.9 g/dL (6.3-8.3)
--- NOTE | 2016-10-04 09:07 | Diag Imaging Result Doc PS360 ---
EXAM: HEAD W/O CONTRAST HISTORY: AMS TECHNIQUE: CT of the head without contrast COMMENT: There are dense calcifications in the vertebral arteries and internal carotid arteries bilaterally. There is persistence of a cavum septum pellucidum. There are a few patchy areas of decreased attenuation and lacunae in the white matter of both hemispheres particularly in the calderon radiata region on the right and the posterior centrum semiovale on the right. These abnormalities were also present at the time the previous examination of 07/17/2016. IMPRESSION: Chronic ischemic microvascular changes. No evidence of acute disease. Atherosclerosis. Electronically signed by Chao Vargas 10/04/2016 9:04 AM
--- NOTE | 2016-10-04 09:19 | Diag Imaging Result Doc PS360 ---
CHEST-PORTABLE - 10/04/2016 INDICATION: AMS TECHNIQUE: COMPARISON: 08/08/2016 FINDINGS: There is significant cardiomegaly. There is moderate pulmonary vascular congestion. There is a left chest port in good position with the catheter tip at the cavoatrial junction. No focal infiltrates, pneumothorax, or pleural effusion. IMPRESSION: Cardiomegaly and pulmonary vascular congestion. Electronically signed by Sonu Murphy 10/04/2016 9:17 AM
[2016-10-04] MEDS ORDERED: VANCOMYCIN IV PER PHARMACY MISC SCH (10:46)
[2016-10-04 11:05] LABS: URINE MICRO REVIEW NEEDED? NO; URINE SOURCE CATH
[2016-10-04 11:09] LABS: UR EPITHELIAL CELLS <10 /HPF (<10); URINE BACTERIA NEGATIVE /HPF; URINE RBC <10 /HPF (<10)
[2016-10-04 11:10] LABS: BILIRUBIN URINE NEGATIVE (NEGATIVE); BLOOD URINE NEGATIVE (NEGATIVE); COLOR YELLOW; GLUCOSE URINE 70 mg/dL (NEGATIVE); LEUKOCYTES URINE MODERATE (NEGATIVE); NITRITE URINE NEGATIVE (NEGATIVE); PH URINE 8.5; PROTEIN URINE 300 mg/dL (NEGATIVE); SP GRAVITY URINE 1.005; TURBIDITY URINE CLEAR (CLEAR); URINE CULTURE NEEDED? YES; UROBILINOGEN URINE NORMAL (NORMAL)
[2016-10-04 11:28] LABS: UR AMPHETAMINES QUAL NONE DETECTED (NONE DETECT); UR BARBITUATES QUAL NONE DETECTED (NONE DETECT); UR BENZODIAZEPIN QUAL NONE DETECTED (NONE DETECT); UR CANNABINOIDS QUAL NONE DETECTED (NONE DETECT); UR COCAINE QUAL NONE DETECTED (NONE DETECT); UR METHADONE QUAL NONE DETECTED (NONE DETECT); UR OPIATES QUAL PRESUMPTIVE POSITIVE (NONE DETECT); UR OXYCODONE QUAL NONE DETECTED (NONE DETECT); UR PCP QUAL NONE DETECTED (NONE DETECT)
--- NOTE | 2016-10-04 11:39 | HISTORY AND PHYSICAL ---
CHIEF COMPLAINT: Unresponsive. HISTORY OF PRESENT ILLNESS: Ms. Wheat is an unfortunate, 41-year-old, female with a history of ESRD on hemodialysis, uncontrolled hypertension and diabetes, and status post bilateral upper extremity amputations and right lower extremity amputation, who presents from [facility] after being found unresponsive this morning. The patient is unable to give any type of history at this time given her mental status. The family member at the bedside is able to answer questions in detail. Apparently last night she had a bit of slurred speech, but did not want to come to the hospital. This morning she was found minimally responsive in her room and was sent here. In the ER, she had a head CT done which showed chronic changes, but nothing acute. Chest x- ray showed cardiomegaly and pulmonary edema. Lab work, with the exception of her renal impairment, is unremarkable. On physical exam, she is only minimally arousable by sternal rub. She is nonverbal and will not follow commands appropriately. Her blood pressure is noted to be 230 systolic; she has had multiple rounds of labetalol. As such, we are going to put her in the ICU for toxic metabolic encephalopathy and hypertensive emergency. PAST MEDICAL HISTORY: 1. Profound medical noncompliance. 2. ESRD on hemodialysis. 3. Uncontrolled hypertension. 4. Uncontrolled diabetes. 5. History of cocaine abuse versus dependence. 6. Severe peripheral vascular disease status post bilateral upper extremity amputations and right lower extremity amputation. SURGICAL HISTORY: Below the elbow amputations of both arms and right BKA. She has also had ankle fracture repair. REVIEW OF SYSTEMS: Unable to obtain. FAMILY HISTORY: Noncontributory at this time, but apparently both parents are . She has 1 living brother who makes medical decisions when she cannot, however there is no power of commercial litigation attorney. The brother is not currently at the bedside. SOCIAL HISTORY: There is a remote history of cocaine use; it is unsure if she is still using. She lives at [facility], and there is no alcohol or tobacco use. ALLERGIES: No known drug allergies. HOME MEDICATIONS: Catapres 0.2 mg p.o. t.i.d., Benadryl 25 mg at bedtime, [place] as needed for pain, lisinopril 40 mg b.i.d., Procardia ER 60 mg daily, Zofran as needed, Zantac 150 mg b.i.d. PHYSICAL EXAMINATION: VITAL SIGNS: Blood pressure 193/100, heart rate is 67, respiratory rate is 14, O2 saturation 100% on 4 L nasal cannula, and temperature is 96.7 degrees. GENERAL: This is a disheveled 41-year-old, female, who appears older than stated age, lying in hospital bed minimally responsive. NEUROLOGIC: She responds only to painful stimulus. She is nonverbal and will not follow commands. She only grimaces to sternal rub. HEENT: Head is atraumatic and normocephalic. Her pupils are equal and sluggish ; they are both irregularly shaped. NECK: Trachea is midline. Neck is supple. There is no JVD. CHEST: Diminished, but clear throughout. Increased work of breathing noted. CV: Regular rate and rhythm. S1, S2 is noted. GI: Soft, nondistended, nontender. EXTREMITIES: Amputation as noted. Left lower extremity with wound over the left lateral malleolus with good granulation tissue about the size of a quarter without any signs of infection noted. She has 1+ to 2+ pitting edema and diminished pulses. DIAGNOSTIC DATA: Head CT shows chronic changes and nothing acute. Chest x-ray shows pulmonary edema and cardiomegaly. WBC 6.21, hemoglobin 10.8, hematocrit 33.8, platelet count 215. ABG on room air reveals pH 7.4, CO2 43, PO2 58, bicarbonate 25.9, oxyhemoglobin 89.6, lactic acid 0.6. Sodium 139, potassium 4.4, chloride 97, CO2 29, anion gap 13, BUN 37, creatinine 8. Glucose is 115. LFTs within normal limits. Albumin 4, lactate 0.5. test is negative. ASSESSMENT AND PLAN: 1. Toxic metabolic encephalopathy: Unclear as to the etiology. We are going to order a magnetic resonance imaging without contrast. We will also check ammonia and TSH. We going to consult nephrology for dialysis, she does not appear to be uremic and her BUN is only 37. We are awaiting urinalysis and drug screen as well. 2. Hypertensive urgency. We are going to continue with intravenous pushes of labetalol and hydralazine for now. We need to get a magnetic resonance imaging to make sure she has not had a stroke which will give us a direction on target systolic blood pressure ranged. 3. End-stage renal disease on hemodialysis. Dr. Chadwick has been consulted. 4. Anemia: Likely combination of mineral deficiencies, vitamin deficiencies and chronic disease. We are going to check iron studies. 5. Diabetes mellitus: We will check a hemoglobin A1c in the morning. Add pattern sugars and sliding scale insulin. 6. Uncontrolled hypertension. We will titrate her medicines once she is more stable. For now she will be getting intravenous antihypertensives. 7. Deep vein thrombosis prophylaxis with heparin given her end-stage renal disease. We are also going to go ahead and draw blood cultures and give her a dose of vancomycin and Zosyn at this time. Dictated by PHILL Alfaro for Maury Ortiz MD cc: PHILL Alfaro MD I have seen and examined patient and have discussed the above plan with the patient. AMS, non focal, global encephalopathy likely metabolic and drugs---sedatives HTN urgency. MTDD
[2016-10-04] MEDS ORDERED: VANCOMYCIN 1 GM/NS 1 GM/250 ML IVPB IV ONE (12:00)
[2016-10-04] MEDS ORDERED: NS 2,000 ML MISC PRN (12:15)
[2016-10-04] MEDS ORDERED: HEPARIN IV PRN (12:15)
[2016-10-04] MEDS ORDERED: TIGHT: 0.2 ML/HR MISC PRN (12:15)
[2016-10-04] MEDS: HUMALOG SUBQ SCH ×4 (12:30→21:26)
--- NOTE | 2016-10-04 12:32 | Diag Imaging Result Doc PS360 ---
EXAM: MRI BRAIN W/O CONTRAST HISTORY: unresponsive TECHNIQUE: MRI of the brain; T1 axial and sagittal, T1 and T2, DWI and FLAIR axial, gradient echo coronal COMMENT: There is persistence of a cavum septum pellucidum. There is a small lacunae in the calderon radiata on the right and a tiny lacune is present in the left kalie. There is some patchy areas of increased periventricular and subcortical white matter bilaterally. No evidence of bleed or abnormal extra-axial fluid collection is present. There is no evidence of restricted diffusion. There is considerable motion artifact on some of the images including the T2 and sagittal T1 images. No previous MRI studies are available for comparison. IMPRESSION: Chronic microvascular white matter disease. No evidence of acute ischemia or other acute abnormality. Electronically signed by Chao Vargas 10/04/2016 12:29 PM
[2016-10-04] MEDS ORDERED: HEPARIN ONE (13:30)
[2016-10-04] MEDS ORDERED: NS 2,000 ML ONE (13:30)
[2016-10-04] MEDS ORDERED: VANCOMYCIN 1 GM/NS 1 GM/250 ML IVPB IV SCH (15:30)
[2016-10-04] MEDS: ZOSYN 2.25 GM/NS 2.25 GM/50 ML IVPB IV SCH ×2 (16:00→23:01)
[2016-10-04] MEDS: LABETALOL IV PRN ×2 (17:45→20:48)
[2016-10-04] MEDS: HEPARIN SUBQ SCH (20:50)
[2016-10-04] MEDS ORDERED: CARDENE 20 MG/D5W 20 MG/200 ML PIGGYBACK IV SCH (21:00)
[2016-10-04] MEDS: CARDENE 20 MG/NS 20 MG/200 ML PIGGYBACK IV SCH (21:27)
[2016-10-05] MEDS: CARDENE 20 MG/NS 20 MG/200 ML PIGGYBACK IV SCH ×4 (00:04→13:00)
[2016-10-05] MEDS: ZOSYN 2.25 GM/NS 2.25 GM/50 ML IVPB IV SCH ×5 (04:53→23:08)
[2016-10-05 06:18] LABS: HEMATOCRIT 30.1 % (37.0-47.0); HEMOGLOBIN 9.6 g/dL (12.0-16.0); MCH 30.7 PG (27-31); MCHC 31.9 g/dL (33-37); MCV 96.2 FL (81-99); MPV 10.8 FL (7.4-10.4); RBC 3.13 XMIL (4.2-5.4)
[2016-10-05 06:45] LABS: ALBUMIN 3.6 g/dL (3.5-5.0); CALCIUM 9.4 mg/dL (8.8-10.2)
[2016-10-05] MEDS: HUMALOG SUBQ SCH ×3 (07:20→16:04)
[2016-10-05 07:34] LABS: FERRITIN 929 ng/mL (13-150); HEMOGLOBIN A1C 4.3 % (4.8-6.0)
[2016-10-05] MEDS: HEPARIN SUBQ SCH ×2 (09:29→21:12)
[2016-10-05 11:52] LABS: INR 1.18; PROTIME 12.5 Seconds (9.2-11.7)
--- NOTE | 2016-10-05 13:33 | PROGRESS NOTE ---
DATE: 10/05/2016 SUBJECTIVE: Today Ms. Wheat continues to be obtunded, but she seems to be a little bit more interactive than yesterday. She is able to open her eyes to voice. OBJECTIVE: Vital signs: Blood pressure is 155/74, pulse 73, respirations 20, temperature 97.8 degrees. General: Ms. Wheat is a 41-year-old female. She is in bed, not seemingly to be in distress. HEENT: Mucosa is pink and moist. Anicteric. Acyanotic. Neck: Supple. Do not appreciate any JVD. Chest: Good air entry bilaterally. There is a port on the left anterior chest wall and there is a fistula on the right upper extremity. Extremities: Patient is double amputee on the both upper extremities and amputee on the right lower extremity. 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 IMAGING STUDIES: An MRI of the brain was done yesterday which shows chronic microvascular white matter disease. No evidence of acute ischemia. LABORATORY DATA: WBC is 6.78, hemoglobin is 9.6, platelet count 203. Chemistry is also reviewed consistent with end-stage renal disease. Patient's folic acid is 4.2, which is remarkably low. A1c is 4.3, which is also low. The UDS on presentation was positive for opioids. ASSESSMENT: 1. Altered mental status. MRI is negative. A CT scan is negative. I think it is probably metabolic encephalopathy. Physical exam is nonfocal. 2. Uncontrolled hypertension. Patient was started on Cardene drip. This seems to be doing a lot better. We will continue with that until patient is more alert, and then we can give her oral medications. 3. End-stage renal disease on hemodialysis. Nephrology is on board. 4. Anemia of chronic disease. 5. Folic acid deficiency. Will replace this. 6. Diabetes mellitus. Patient's A1c is actually remarkably low. I am not sure if she has been running hypoglycemic on other occasions; however, we will continue to monitor her glucose here in the intensive care unit. 7. Hyperphosphatemia secondary to end-stage renal disease. Nephrology is on board. cc: Maury Ortiz MD
--- NOTE | 2016-10-05 14:09 | CONSULTATION ---
DATE OF CONSULTATION: 10/05/2016 REASON FOR CONSULTATION: Assistance with management. HISTORY OF PRESENT ILLNESS: Ms. Wheat is a 41-year-old woman with diabetes, ESRD, hypertension, peripheral vascular disease. She is a three-limb amputee. She was seen by me on dialysis rounds this week at which time she was complaining of a headache and her blood pressure control was very poor. We reviewed her medication at [facility] and increased her nifedipine to 60 mg b.i.d. This change was made on the . She came to the emergency room on the with altered sensorium. She was [facility] unresponsive at the [facility] facility. Her exam found marked hypertension and so she was admitted to the hospital and treated with IV nicardipine with the presumption that she has hypertensive encephalopathy. Her blood pressure control has been much better since this medication was initiated. Blood pressure 155/74 this morning. She remains very poorly responsive though the nurse states that it is improved. She will mumble unintelligibly and move her head spontaneously whereas yesterday she was not doing either of these things. Her MRI of the brain did not show any acute injury pattern. PAST MEDICAL HISTORY: As above. She also has an ulcer on the left heel. SOCIAL HISTORY: She currently resides in [facility]. Former history of cocaine use but none currently. No alcohol or tobacco. FAMILY HISTORY: Positive for diabetes and vascular disease. ALLERGIES: None. HOME MEDICATIONS: Catapres, Benadryl, [place], lisinopril, Procardia, Zofran, Zantac. PHYSICAL EXAMINATION: Vital Signs: Blood pressure 155/74, heart rate 74, respiration 20, afebrile. General: She is in no acute distress. Skin: Warm and dry. Conjunctivae are pink but she resists eye opening. Oropharynx is dry. Neck: Supple. Neck veins are not visible. Heart: Regular with a gallop. No rubs. Lungs: Have equal breath sounds. No crackles or wheezes. Abdomen: Obese and soft. Bowel sounds are present. No organomegaly. Extremities: Have no edema, clubbing, or cyanosis. LABORATORY DATA: Sodium 142, potassium 4.0, chloride 102, bicarbonate 27, creatinine 6.4, hemoglobin 9.6. IMPRESSION: 1. End-stage kidney disease. She had her routine hemodialysis yesterday. She appears euvolemic today. Electrolytes and acid-base are in target. 2. Anemia. Hemoglobin is below target but given her marked hypertension we will withhold erythropoietin-stimulating agent treatment today. 3. I have reviewed her medications and no changes are required from my perspective. cc: Emilio Chadwick MD
[2016-10-05] MEDS: FOLIC ACID 1 MG in NS 50.0 ML IV SCH (15:14)
[2016-10-05] MEDS: CARDENE 20 MG/D5W 20 MG/200 ML PIGGYBACK IV SCH ×2 (17:50→21:57)
[2016-10-06] MEDS: CARDENE 20 MG/D5W 20 MG/200 ML PIGGYBACK IV SCH ×5 (03:54→22:51)
[2016-10-06] MEDS: ZOSYN 2.25 GM/NS 2.25 GM/50 ML IVPB IV SCH (04:24)
[2016-10-06 05:33] LABS: HEMATOCRIT 31.3 % (37.0-47.0); HEMOGLOBIN 9.8 g/dL (12.0-16.0); MCH 30.2 PG (27-31); MCHC 31.3 g/dL (33-37); MCV 96.6 FL (81-99); MPV 10.7 FL (7.4-10.4); RBC 3.24 XMIL (4.2-5.4)
[2016-10-06 05:49] LABS: ALBUMIN 3.3 g/dL (3.5-5.0); CALCIUM 8.9 mg/dL (8.8-10.2); POTASSIUM 4.6 mmol/L (3.5-5.1)
[2016-10-06] MEDS: HEPARIN SUBQ SCH ×2 (08:20→20:15)
--- NOTE | 2016-10-06 10:22 | PROGRESS NOTE ---
DATE: 10/06/2016 SUBJECTIVE: Today, Ms. Wheat refers to be doing fine. She was actually more awake and alert, more responsive to interrogations today. OBJECTIVE: Vital Signs: Blood pressure is 167/84, pulse is 83, respirations are 14, saturations 100%. Temperature is 97.9 degrees. General Examination: Ms. Wheat is a 41-year-old, female. She is in bed. She did not seem to be in any remarkable distress. HEENT: Mucosa is pink and moist. Anicteric. Acyanotic. Neck: Supple. No JVD. Chest: Good air entry bilaterally. No crepitations. No rhonchi. Cardiovascular: Regular rate and rhythm. No murmurs. Abdomen: Soft. Extremities: Patient is a double amputee on both upper extremities and right lower extremity. 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 She was able to tell me she is doing fine. She knows where she is. We gave her some ice chips and she was able to chew them and swallow them without any difficulties. Laboratory Data: WBC is 8.74, hemoglobin is 9.8, platelet count is 236,000. Chemistry reviewed. Consistent with end-stage renal disease. Microbiology, urine, and blood have all been negative. ASSESSMENT: 1. Altered mental status on presentation, likely due to metabolic encephalopathy (urine drug screen positive for opioids). Physical exam was nonfocal. 2. Hypertensive urgency on presentation. Because of altered mentation, patient has been on Cardene drip. Blood pressure has been remarkably better controlled. We are going to restart her on her oral medications and make the adjustment as necessary. 3. End-stage renal disease, on hemodialysis. Nephrology is on board. 4. Anemia of chronic kidney disease. 5. Folic acid deficiency. We will continue with supplements. 6. Diabetes mellitus, stable. 7. Hyperphosphatemia secondary to end-stage renal disease noted. PLAN: In general, Ms. Wheat' mentation has significantly improved. Cultures have all been negative so we will discontinue the antibiotics. She has been given some ice chips. She has tolerated that so we will start her on some liquid diet to see if she is able to eat and progressively advance that. If patient tolerates her feedings, then we will restart her on her home medications. Hopefully transition her to a regular floor by tomorrow. cc: Maury Ortiz MD
[2016-10-06] MEDS: PROCARDIA ER PO SCH (12:38)
[2016-10-06] MEDS: NORVASC PO SCH (12:38)
[2016-10-06] MEDS: FOLIC ACID 1 MG in NS 50.0 ML IV SCH (12:39)
[2016-10-06] MEDS: ZANTAC PO SCH ×2 (12:39→20:15)
[2016-10-06] MEDS: CATAPRES PO SCH ×2 (14:26→21:13)
[2016-10-06] MEDS: PRINIVIL PO SCH (20:15)
[2016-10-07 06:00] LABS: ALBUMIN 3.6 g/dL (3.5-5.0); CALCIUM 8.8 mg/dL (8.8-10.2); POTASSIUM 4.7 mmol/L (3.5-5.1)
--- NOTE | 2016-10-07 06:11 | EKG Report ---
Test Performed on : 10/04/2016 5:51:50 PM Test Reason : Re-Ordered/AMS Blood Pressure : / mmHG Vent. Rate : 069 BPM Atrial Rate : 069 BPM P-R Int : 194 ms QRS Dur : 086 ms QT Int : 452 ms P-R-T Axes : 042 017 142 degrees QTc Int : 484 ms Normal sinus rhythm. Nonspecific T wave abnormality Prolonged QT Abnormal ECG When compared with ECG of 04-OCT-2016 07:42, (Unconfirmed) T wave inversion now evident in Anterior leads Nonspecific T wave abnormality no longer evident in Lead 1 [place] shift in inferior lead III Nonspecific ST abnormality early precordial leads V2-V3 T wave inversion no longer evident in far lateral leads Confirmed by Srini James DO ([id number]) on 10/08/2016 7:10:09 AM
[2016-10-07 06:33] LABS: HEMATOCRIT 30.2 % (37.0-47.0); HEMOGLOBIN 9.5 g/dL (12.0-16.0); MCH 30.2 PG (27-31); MCHC 31.5 g/dL (33-37); MCV 95.9 FL (81-99); RBC 3.15 XMIL (4.2-5.4)
[2016-10-07] MEDS: CARDENE 20 MG/D5W 20 MG/200 ML PIGGYBACK IV SCH (07:48)
[2016-10-07] MEDS ORDERED: TIGHT: 0.2 ML/HR MISC PRN (07:55)
[2016-10-07] MEDS ORDERED: NS 2,000 ML MISC PRN (07:55)
[2016-10-07] MEDS ORDERED: HEPARIN IV PRN (07:55)
[2016-10-07] MEDS: NORVASC PO SCH (09:12)
[2016-10-07] MEDS: PRINIVIL PO SCH ×2 (09:12→21:29)
[2016-10-07] MEDS: PROCARDIA ER PO SCH (09:12)
[2016-10-07] MEDS: ZANTAC PO SCH ×2 (09:13→21:27)
[2016-10-07] MEDS: CATAPRES PO SCH ×3 (09:13→21:27)
[2016-10-07] MEDS: HEPARIN SUBQ SCH ×2 (09:14→21:39)
--- NOTE | 2016-10-07 10:44 | PROGRESS NOTE ---
DATE: 10/07/2016 SUBJECTIVE: Patient currently resting in bed. She states that she has not been hungry this morning. She knows where she is at, but does not recognize me from clinic. OBJECTIVE: Vital Signs: Temperature 98.4 degrees, pulse 70, respiratory rate 22, blood pressure 158/80. Intake 2.1 L, output not measured. General: This is a middle-aged female, resting in bed. She is awake and alert. Continues to have some mild confusion. HEENT: Normocephalic, atraumatic. Oral mucosa moist. Neck: Supple. No JVD. Cardiovascular: Regular rate and rhythm. Pulmonary: She has equal excursion. There are no adventitious breath sounds. No increased work of breathing. Abdomen: Obese, soft. Positive bowel sounds. : Not inspected. Extremities: She has bilateral below-elbow amputation, and right lower extremity BKA. Left lower extremity with no edema. Integumentary: Skin is warm and dry otherwise. LABORATORY DATA: WBC of 7.4, hemoglobin 9.5. Sodium 141, potassium 4.7, CO2 of 24, creatinine 8.3, albumin 3.6, calcium 3.8. ASSESSMENT AND PLAN: 1. End-stage renal disease management. Today is her routine dialysis day. Will dialyze her on a 2-potassium bath/ultrafiltrate to dry weight, 4-hour treatment. 2. Anemia has been stable. We have held her Epogen secondary to her elevated hypertension. 3. Blood pressure. She remains on nicardipine drip. This is been titrated down , trying to get her back on her home medications. I wonder if she has gastroparesis that may be affecting absorption of oral medications. Will check gastric emptying. rg 4. Fluid volume. She is not overloaded. Dictated by PHILL Chowdary for Emilio Chadwick MD Patient seen, data reviewed, discussed with Keith Rivers on 10/07/16. I agree with the above assessment and plan of care. tiburcio cc: Emilio Chadwick MD [facility]
[2016-10-07] MEDS ORDERED: NS 2,000 ML ONE (11:17)
[2016-10-07] MEDS ORDERED: HEPARIN ONE (11:17)
[2016-10-07] MEDS: FOLIC ACID PO SCH (12:37)
--- NOTE | 2016-10-07 12:58 | PROGRESS NOTE ---
DATE: 10/07/2016 SUBJECTIVE: Today, Ms. Wheat refers to be doing a lot better. Denies any acute complaints. OBJECTIVE: Vital Signs: Blood pressure is 142/78, pulse 78, respirations 24, temperature 97.6. General: Ms. Wheat is a 41-year-old, female. She is in bed, not in any distress. HEENT: Mucosa is pink and moist. Anicteric. Acyanotic. Neck: Supple. Chest: Good air entry bilateral. No crepitations. No rhonchi. Cardiovascular: Regular rate and rhythm. There are no murmurs, no rubs, no gallops. Abdomen: Soft, nontender. There is no hepatosplenomegaly. Extremities: No pedal edema. The patient is double amputee on both upper extremities and right lower extremity. Left has no edema. The lateral aspect of the ankle has some erosion, which is covered with sterile gauze. 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 Knows where she is. Recognized her name. She has been able to tolerate her breakfast this morning. LABORATORY DATA: Has been reviewed. CBC is unremarkable. Chemistry just consistent with end- stage renal disease. ASSESSMENT: 1. Altered mental status on presentation, likely due to metabolic encephalopathy. Urine drug screen was positive for opioids. The patient on physical exam is nonfocal and mentation has remarkably improved. 2. Hypertensive urgency on presentation. Patient is on Cardene. We are going to trend this off. We started her blood pressure medications since yesterday, and blood pressures have been remarkably controlled. 3. End-stage renal disease on hemodialysis. The patient is on scheduled Friday , Friday and Friday and she is due for treatment today. 4. Anemia of chronic kidney disease. 5. Folic acid deficiency. We will continue with supplements. 6. Diabetes mellitus stable. 7. Hyperphosphatemia, secondary to kidney disease. For today, Ms. Wheat mentation is significantly improved. She is going to go for dialysis and we will turn off the Cardene drip. If patient continues to be stable, we will transfer her to a regular floor. We will start her on renal diet and hopefully start planning for her discharge by tomorrow. cc: Maury Ortiz MD MTDD
[2016-10-07] MEDS: ADALAT CC PO SCH (21:29)
--- NOTE | 2016-10-08 09:53 | Diag Imaging Result Doc PS360 ---
GASTRIC EMPTYING - 10/07/2016 INDICATION: frequent n/v TECHNIQUE: 537 uCi of labeled solid food was ingested. The patient refused to finish the exam, completing only 30 minutes of imaging. Typically, over two hours is done. COMPARISON: None FINDINGS: There is slow gastric emptying, however due to incompleteness of the exam this is somewhat inconclusive. The T1 half of gastric emptying is about 200 minutes which is somewhat delayed. IMPRESSION: Limited due to patient preference. Probable gastroparesis. Electronically signed by Sonu Murphy 10/08/2016 9:50 AM
[2016-10-08] MEDS: HEPARIN SUBQ SCH (10:10)
[2016-10-08] MEDS: ZANTAC PO SCH (10:12)
[2016-10-08] MEDS: CATAPRES PO SCH ×2 (10:12→13:42)
[2016-10-08] MEDS: FOLIC ACID PO SCH (10:12)
[2016-10-08] MEDS: ADALAT CC PO SCH (10:13)
[2016-10-08] MEDS: PRINIVIL PO SCH (10:13)
[2016-10-08 11:44] VITALS: BP 123/61
--- NOTE | 2016-10-08 12:51 | DISCHARGE SUMMARY ---
ADMISSION DATE: 10/04/2016 DISCHARGE DATE: 10/08/2016 CONSULTATIONS: Emilio Chadwick MD with Nephrology. PERTINENT PROCEDURES: 1. Head CT showed chronic ischemic microvascular changes. No evidence of acute disease, atherosclerosis. 2. Brain MRI showed chronic microvascular white matter disease. No evidence of acute ischemia or other acute abnormality. 3. Gastric emptying study was limited due the patient preference, possible gastroparesis. DISCHARGE DIAGNOSES: 1. Metabolic encephalopathy. On presentation toxicology was positive for opiates. Mentation has remarkably improved. 2. Hypertension urgency, improved. 3. End-stage renal disease on hemodialysis Friday, Friday, and Friday. 4. Anemia of chronic disease, stable. 5. Folic acid deficiency. Continue with supplementation. 6. Diabetes mellitus, stable. 7. Hyperphosphatemia secondary to kidney disease. Addressed with hemodialysis. HOSPITAL COURSE: Ms. Wheat is a 41-year-old, with history of end-stage renal disease, uncontrolled hypertension, diabetes, status post bilateral upper extremity amputations and a right lower extremity amputation presented from [facility] after being found unresponsive. At the time of her admission she was unable to give any type of history given her mental status. She did have a family member at the bedside and they reported that the night before she had a bit of slurred speech, but did not want to come to the hospital. In the morning she was found minimally responsive in her room and was sent to the ED. She had a head CT that showed chronic changes but nothing acute. Chest x-ray showed cardiomegaly and pulmonary edema. Her lab work with the exception of her renal impairment was unremarkable. Blood pressure was noted to be in the 230 systolic. She had multiple rounds of labetalol. She was admitted to the ICU for toxic metabolic encephalopathy and hypertensive urgency. Her tox screen came back positive for opiates which according to her medication reconciliation the patient does not have a prescription for. Monitored in the ICU with neuro checks. They did continue with IV labetalol pushes as well as IV hydralazine. Brain MRI was negative. Dr. Chadwick was consulted to help with medical management and continue her hemodialysis schedule. The patient did have to be placed on a Cardene drip for her hypertension. Her blood pressures were remarkably better controlled on a Cardene drip. They were able to restart her on her oral medications and make adjustments as necessary. She was able to come off the drip. She was moved to the step-down unit. Her mentation significantly improved. She was able to stay on her regular hemodialysis schedule. She did undergo a gastric emptying study that was limited due to the patient's preference. It showed probable gastroparesis. She was initiated back on a renal diet. She is appropriate for discharge back to [facility] today. VITAL SIGNS: Temperature is 98.3 degrees, heart rate 73, blood pressure is 123/61, O2 is 95% on room air. DISCHARGE DIET: Renal. DISCHARGE MEDICATIONS: As per Dr. Ortiz. Please see MAR. FOLLOWUP: Ms. Wheat is being discharged back to [facility]. She will continue on her regular scheduled hemodialysis. She can return to the ED for any worsening of symptoms. DISCHARGE TIME: 30 minutes. Dictated by PHILL Liriano for Maury Ortiz MD cc: Maury Ortiz MD
--- NOTE | 2016-10-08 13:33 | PROGRESS NOTE ---
DATE: 10/08/2016 SUBJECTIVE: She did not attend dialysis yesterday. She was unwilling but her family was able to convince her and she did go at later in the evening. I spoke to her about this and she said that she "wasn't thinking right." Currently she is in Nuclear Medicine having the completion of her gastric emptying study. She states she was able to eat the eggs without any difficulty and she has no nausea or vomiting. OBJECTIVE: Vital Signs: Blood pressure 139/70, heart rate 87, respirations 22, afebrile. General: She is in no acute distress. Skin: Warm and dry. Eyes: Conjunctivae are pink. Neck: Neck veins are not visible. Heart: Regular. Lungs: Have equal breath sounds. No crackles. Abdomen: Soft, nontender. Extremities: Have no edema, clubbing, or cyanosis. IMPRESSION: 1. Hypertensive encephalopathy. Improved. She does have some delayed gastric emptying on her study but her blood pressure is doing well currently so we will stay with her current regimen. If her blood pressure becomes difficult to control again then we will need to consider liquid medications. 2. Electrolytes are acceptable. 3. Acid base acceptable. 4. Anemia is stable and we have withheld erythropoietin because of her blood pressure. cc: Emilio Chadwick MD
[2016-10-08] MEDS ORDERED: REGLAN PO SCH (16:00)
== END 2016-10-08 16:43 ==
LOC: ED 07:44 → ICU 10:50 → 4N 10-07 15:37
PROVIDERS: ATTEND Internal Medicine

== ENCOUNTER 2016-11-14 16:27 | Inpatient (IN) ==
[2016-11-14] MEDS ORDERED: TYLENOL PO PRN (17:50)
[2016-11-14] MEDS ORDERED: VANCOMYCIN IV PER PHARMACY MISC SCH (18:00)
[2016-11-14] MEDS: NORCO-10 PO PRN (18:45)
[2016-11-14] MEDS ORDERED: VANCOMYCIN 1 GM/NS 1 GM/250 ML IVPB IV ONE (19:00)
[2016-11-14 20:27] LABS: MANUAL DIFF NEEDED? NO
[2016-11-14 20:30] LABS: BASO% 0.5 % (0.0-0.8); EOS# 0.28 X1000 (0.0-0.7); EOS% 3.8 % (0.0-10.0); HEMATOCRIT 32.3 % (37.0-47.0); HEMOGLOBIN 10.5 g/dL (12.0-16.0); LYMPH% 17.5 % (20.5-51.1); MCH 29.9 PG (27-31); MCHC 32.5 g/dL (33-37); MONO# 1.04 X1000 (0.11-0.59); MPV 9.6 FL (7.4-10.4); NEUT% 64.2 % (42.2-75.2); PLT 522 X1000 (130-400); RBC 3.51 XMIL (4.2-5.4)
[2016-11-14] MEDS: HEPARIN SUBQ SCH (20:39)
[2016-11-14] MEDS: PRINIVIL PO SCH (20:39)
[2016-11-14] MEDS: ZOSYN 2.25 GM in NS 50 ML IV SCH (20:42)
--- NOTE | 2016-11-14 20:47 | Diag Imaging Result Doc PS360 ---
EXAM: ANKLE COMPLETE LEFT INDICATION: left ankle infection TECHNIQUE: 3 views COMPARISON: 10/24/2016 FINDINGS: There is severe disruption of the tibiotalar joint like the previous study. There is collapse of the talar dome and severe erosion of the tibial plafond, stable. Similar to the previous study, there is subtalar medial subluxation. There is severe soft tissue edema around the ankle that has actually worsened. IMPRESSION: Severe articular disruption at the ankle that is similar to the previous study but the surrounding soft tissue edema is significantly worse. Electronically signed by Mariusz Pollock 11/14/2016 8:45 PM
[2016-11-14 21:02] LABS: CALCIUM 8.9 mg/dL (8.8-10.2); MAGNESIUM 1.9 mg/dL (1.5-2.7); POTASSIUM 4.4 mmol/L (3.5-5.1)
[2016-11-14] MEDS: MORPHINE IV PRN (21:25)
[2016-11-14] MEDS: HUMULIN R SUBQ SCH (21:26)
--- NOTE | 2016-11-14 21:42 | Diag Imaging Result Doc PS360 ---
EXAM: FOOT COMPLETE LEFT INDICATION: left foot infection TECHNIQUE: 3 views COMPARISON: 10/24/2016 FINDINGS: Subtalar medial subluxation with severe erosion of the talar dome and tibial plateau are essentially stable. There is stable severe atherosclerotic calcification involving the ankle and foot. There is stable soft tissue calcification at the plantar aspect of the foot. Since the previous study, soft tissue edema has worsened markedly around the foot and ankle. IMPRESSION: 1.Stable marked articular disruption at the ankle. 2.Worsening soft tissue edema around the foot and ankle. Electronically signed by Mariusz Pollock 11/14/2016 9:40 PM
[2016-11-15] MEDS: MORPHINE IV PRN ×3 (02:30→22:50)
--- NOTE | 2016-11-15 05:02 | HISTORY AND PHYSICAL ---
CHIEF COMPLAINT: Left diabetic foot infection. HISTORY OF PRESENT ILLNESS: A 41-year-old female, , with a past medical history of end-stage renal disease, on hemodialysis, uncontrolled hypertension, diabetes CAD, status post bilateral upper extremity amputation and right lower extremity amputation was sent by her orthopedic surgeon for admission. She is presenting with redness, swelling and secretions coming out from her left ankle at the level of the lateral malleolus. It is a pus-like secretion, strong odor. She also has some deformity. Apparently, she has an ankle fracture but this is not new. Apparently, she has been with this for a while. She started presenting with this kind of symptom 1-1/2 weeks ago but today, she went to her doctor who recommended admission. So, she was transferred from [facility] to this hospital for evaluation. At this moment, I do not have any vital signs or lab work. I will ask for a new laboratory for today and tomorrow. I will consult Orthopedic Surgery and I will consult the Nephrology Department. This patient will be placed on antibiotics, pain medication, DVT prophylaxis, GI prophylaxis. I will continue with some of her blood pressure medication and she will be placed on the sliding scale insulin and pattern of blood sugar. She denies nausea, vomiting, diarrhea, constipation. No headache. No shortness of breath. No belly pain. No weight changes. She does have a Port-A-Cath on the left upper chest but it looks like it has a big scar on it. So probably, I will call tomorrow, the Surgery Department to evaluate this to see if we can use it or maybe change it. REVIEW OF SYSTEMS: All 14-point review of systems were reviewed, all of them negative, except as per HPI. SOCIAL HISTORY: Remote history of cocaine use. No alcohol. No tobacco abuse. FAMILY HISTORY: Noncontributory. She has 1 living brother who makes medical decisions, which she cannot do it that, but apparently he is not the power of assistant district attorney. ALLERGIES: No known allergies. PAST SURGICAL HISTORY: Mcasa-[id number]-fddrg amputation of both arms and right BKA. She also has ankle fracture repair on the left side. PAST MEDICAL HISTORY: End-stage renal disease, on hemodialysis, uncontrolled hypertension, uncontrolled diabetes, history of cocaine abuse, severe peripheral vascular disease status post bilateral upper extremity amputation and right lower extremity amputation and profound medical noncompliance. HOME MEDICATIONS: She was recently discharged on Catapres 0.2 mg p.o. t.i.d., Reglan 5 mg p.o. 3 times a day before meals, folic acid 1 mg p.o. daily, lisinopril 40 mg p.o. twice a day, nifedipine 60 mg p.o. daily, ranitidine 150 mg p.o. twice a day. PHYSICAL EXAMINATION: HEENT: Head normocephalic. No trauma. PERRLA. NECK: Supple. No JVD. No masses. Central trachea. CHEST: Clear to auscultation. No wheezing. No rales. She has a Port-A-Cath in the left upper chest with a big scar on the top. ABDOMEN: Soft, nontender, nondistended. No hepatosplenomegaly. EXTREMITIES: She has upper extremity amputation and right lower extremity amputation and on the left side, she has edema and inflammation of the left ankle with some drainage coming out from her lateral malleolus, pus-like drainage. Also, pain with palpation and mobilization. NEUROLOGICAL: The patient is alert and oriented x3. No focal neurological deficits. LABORATORY: No lab work done so far. I will ask for new blood work for today and tomorrow. ASSESSMENT AND PLAN: 1. Left diabetic foot infection. I have placed this patient on antibiotics and pain medications. Also, I have consulted Orthopedic Surgery Department to evaluate this patient. I will get an x-ray of the left foot. 2. End-stage renal disease, on hemodialysis. Nephrology Department has been consulted. 3. Uncontrolled diabetes. I will put this patient on a sliding scale insulin and pattern her blood sugar. I will ask also for a hemoglobin A1c. I will monitor. 4. Uncontrolled hypertension. I have placed this patient back on some of her blood pressure medication. I will modify the dose as needed. 5. Medical noncompliance, aware. This patient has been highly advised to take her medications as prescribed. I will continue with daily education. 6. Severe peripheral vascular disease. Aware. 7. Deep vein thrombosis prophylaxis. Given her kidney dysfunction, I will put this patient on heparin twice a day subcutaneously. cc: Silvio Kirkland MD
[2016-11-15] MEDS: HUMULIN R SUBQ SCH ×4 (06:09→22:49)
[2016-11-15] MEDS: REGLAN PO SCH ×3 (06:17→17:34)
[2016-11-15] MEDS: NORCO-10 PO PRN ×3 (06:17→22:48)
[2016-11-15 06:44] LABS: MANUAL DIFF NEEDED? NO
[2016-11-15 06:52] LABS: INR 1.1; PROTIME 11.6 Seconds (9.2-11.7)
[2016-11-15 07:03] LABS: HEMOGLOBIN A1C 4.1 % (4.8-6.0)
[2016-11-15 07:17] LABS: CALCIUM 9.4 mg/dL (8.8-10.2); POTASSIUM 4.6 mmol/L (3.5-5.1)
[2016-11-15] MEDS ORDERED: NS 2,000 ML MISC PRN (07:36)
[2016-11-15] MEDS ORDERED: HEPARIN IV PRN (07:36)
[2016-11-15] MEDS ORDERED: TIGHT: 0.2 ML/HR MISC PRN (07:36)
[2016-11-15 07:44] LABS: BASO% 0.4 % (0.0-0.8); EOS# 0.37 X1000 (0.0-0.7); EOS% 5.3 % (0.0-10.0); HEMATOCRIT 34.4 % (37.0-47.0); LYMPH# 1.37 X1000 (1.2-3.4); LYMPH% 19.5 % (20.5-51.1); MCH 29.4 PG (27-31); MONO# 1.02 X1000 (0.11-0.59); MONO% 14.5 % (1.7-9.3); NEUT% 60.3 % (42.2-75.2); PLT 550 X1000 (130-400); RBC 3.74 XMIL (4.2-5.4)
[2016-11-15] MEDS ORDERED: PROCARDIA PO SCH (09:00)
[2016-11-15] MEDS: CATAPRES PO SCH ×3 (09:38→17:34)
[2016-11-15] MEDS: PRINIVIL PO SCH ×2 (09:39→22:49)
[2016-11-15] MEDS: HEPARIN SUBQ SCH ×2 (09:39→22:49)
[2016-11-15] MEDS: FOLIC ACID PO SCH (09:39)
[2016-11-15] MEDS: ZOSYN 2.25 GM in NS 50 ML IV SCH ×2 (14:28→22:50)
[2016-11-15] MEDS: PROCARDIA ER PO SCH (14:29)
--- NOTE | 2016-11-15 16:02 | PROGRESS NOTE ---
DATE: 11/15/2016 SUBJECTIVE: Patient currently undergoing hemodialysis. She has no complaints. OBJECTIVE: Vital signs: Temperature 97.9 degrees, pulse 80, respiratory rate 22, blood pressure 174/72. Intake and output have not been measured. She is to UF to dry weight today. General: A middle-aged female, resting in bed. No acute distress. HEENT: Normocephalic , atraumatic. Glasses noted. Oral mucosa moist. Neck: Supple. No JVD. Cardiovascular: Regular rate and rhythm. No murmur. Pulmonary: Equal excursion. Clear bilaterally. Abdomen : Soft. Positive bowel sounds. : Not inspected. Extremities: Her right upper extremity is currently accessed for dialysis. She has amputations bilateral upper extremities and left lower extremity. Right lower extremity with a dressing to the ankle. LAB DATA: Potassium 4.6, CO2 26, creatinine 6.2. ASSESSMENT AND PLAN: 1. End-stage renal disease management. We are dialyzing her now currently without difficulty. She is on a 2 K bath/ultrafiltration to dry weight/four hour treatment. 2. Electrolytes, acid-base balance. See above for plan. 3. Hypertension. Controlled. Dictated by PHILL Chowdary for Emilio Chadwick MD Data reviewed, discussed with Keith Rivers on 11/15/16. I agree with the above assessment and plan of care. cc: Emilio Chadwick MD [facility]
--- NOTE | 2016-11-15 16:44 | CONSULTATION ---
DATE OF CONSULTATION: 11/15/2016 REASON FOR CONSULTATION: Left diabetic foot ulceration with infection. HISTORY OF PRESENT ILLNESS: This is a 41-year-old female with a past medical history of end stage renal disease for which she is on hemodialysis, uncontrolled hypertension, uncontrolled diabetes mellitus type 2, status post bilateral upper extremity amputation and right lower extremity amputation. She presented [facility] with increased edema to the left lower extremity. We have been following this left foot ulceration on her lateral malleolus for quite some time. Unfortunately yesterday she had edema from the foot all the way up the thigh as well as increased purulent drainage that had a strong odor. Her dressings were soaked with drainage. She denied fever or chills. However, with her medical history, it was felt best that she be admitted to the hospital for IV antibiotics and to further discuss possible amputation of this leg. She was admitted by the Hospitalist Services, and Orthopedics was consulted for further evaluation of the left lower extremity. REVIEW OF SYSTEMS: A 12-point review of systems was reviewed, and all of them are negative except what is mentioned in the HPI. SOCIAL HISTORY: History of cocaine use, no longer uses any illicit drugs. She denies alcohol or tobacco. She lives in [facility]. ALLERGIES: No known drug allergies. PAST SURGICAL HISTORY: 1. Below the elbow amputation of the left arm. 2. Below the elbow amputation of the right arm. 3. Right below the knee amputation. PAST MEDICAL HISTORY: 1. End stage renal disease on hemodialysis. 2. Uncontrolled hypertension. 3. Uncontrolled diabetes mellitus type 2. 4. Severe peripheral vascular disease, status post bilateral upper extremity amputation and right lower extremity amputation. 5. Left diabetic ankle ulceration. HOME MEDICATIONS: 1. Catapres 0.2 mg p.o. t.i.d. 2. Reglan 5 mg p.o. 3 times a day before meals. 3. Folic acid 1 mg p.o. daily. 4. Lisinopril 40 mg p.o. twice daily. 5. Nifedipine 60 mg p.o. daily. 6. Ranitidine 150 mg p.o. twice a day. PHYSICAL EXAMINATION: Vital signs: Temperature is 98.1 degrees, pulse 78, respiratory rate 18, blood pressure 210/92, O2 saturation is 99% on room air. General: This is a frail-appearing, tri- amputation patient in no acute distress. HEENT: Head is normocephalic and atraumatic. Pupils are equal, round and reactive to light and accommodating. Neck: Supple. No JVD. Chest: Respirations are even and unlabored. Abdomen: Nontender and nondistended. Cardiovascular: Regular rate and rhythm. Extremities: Again, she has bilateral upper extremity amputations and a right lower extremity amputation. Left lower extremity shows the leg has significant edema from the foot all the way to the thigh, especially around the ankle. She does have a draining wound on the lateral malleolus. There is purulent drainage. They have been wrapping it at the [facility], and the dressing from the [facility] was saturated; however, the dressing today is fairly new but does already have some purulent discharge on it. She still has significant edema. There is no notable erythema. DIAGNOSTIC DATA: Her white count was 7.03, hemoglobin and hematocrit were 11 and 34, platelets are 550. Sodium is 140, potassium 4.6, BUN is 38, creatinine is 6.8. Blood cultures have been drawn, but they are pending. ASSESSMENT: Left ankle diabetic foot ulceration with infection. PLAN: We have been following Ms. Wheat in the [facility] for a long time. Overall the wound was improving, and we had even discussed doing a possible reconstruction of this left ankle and foot to save the leg. However, unfortunately today the leg does appear infected. The Hospitalist Service has started her on IV antibiotics, and of course we agree with continuing those. At this point, we do recommend amputation. We would like to try to get a lot of swelling in the leg down prior to amputation. We will plan to continue the IV antibiotics through the weekend and reassess her Friday for a definitive below the knee amputation. If we are unable to get the swelling under control, we may have to end up doing a guillotine amputation and come back and do a revision for the BKA. Nephrology has also been consulted to manage her hemodialysis. Her blood pressure is 210 this morning, but she is actually on her way down to dialysis right now. We will continue to follow her blood cultures. We will revisit surgery on Friday. Dictated by PHILL Lei for Lewis Benites MD cc: PHILL Lei MD
[2016-11-15] MEDS ORDERED: VANCOMYCIN 1 GM/NS 1 GM/250 ML IVPB IV ONE (17:00)
[2016-11-15] MEDS ORDERED: VANCOMYCIN 1 GM/NS 1 GM/250 ML IVPB IV SCH (17:00)
--- NOTE | 2016-11-15 19:17 | CONSULTATION ---
DATE OF CONSULTATION: 11/15/2016 REASON FOR ADMISSION: Diabetic left foot infection. REASON FOR CONSULTATION: ESRD management. CONSULTING PHYSICIAN: Dr. Parker. HISTORY OF PRESENT ILLNESS: This is a 41-year-old female known to our service for end-stage renal disease on hemodialysis with multiple amputations to bilateral upper extremities and right lower extremities. She was seen for evaluation by orthopedic physician secondary to edema, swelling and secretion from the left ankle. She was admitted to the hospital for further workup and treatment. Cultures are currently pending. We have been asked to see her for her dialysis needs. PAST MEDICAL HISTORY: End-stage renal disease on hemodialysis, hypertension, diabetes, coronary artery disease, GERD. SURGICAL HISTORY: She has had multiple amputations bilateral upper extremities below the elbow and BKA left lower extremity. She has had dialysis catheters and currently dialyzes with a fistula. ALLERGIES: No known drug allergies. HOME MEDICATIONS: Catapres, Reglan, folic acid, lisinopril, nifedipine, REVIEW OF SYSTEMS: Negative aside from that noted in the HPI. EXAM: Vital signs: Temperature 98.1 degrees, pulse 67, respiratory 17, blood pressure 174/72. Intake not measured. Output 300 mL. General: This is a middle-aged female resting in bed. She is awake and alert. No acute distress. HEENT: Normocephalic, atraumatic. She has glasses, conjunctivae pink. Oral mucosa moist. Neck: Supple. Trachea midline. No JVD. Cardiovascular: Regular rate and rhythm. There is no murmur or gallop. Pulmonary: Equal excursion. She is clear bilaterally. Abdomen: Soft, positive bowel sounds. : Not inspected. Extremities: Bilateral upper extremity below elbow amputation, she is left lower extremity amputation and right lower extremity with drainage noted to the dressing around the ankle, trace pretibial edema. Integumentary: Skin is warm and dry otherwise. LAB DATA: WBC of 7.0, hemoglobin 11.0, sodium 140, potassium 4.6, CO2 26, BUN 38, creatinine 6.8. ASSESSMENT AND PLAN: 1. End-stage renal disease management, 2 K bath/UF to dry weight/4 hour treatment. Will dialyze in addition to her routine prescription as warranted. 2. Electrolytes, acid-base balance anemia. These are stable. See above for plan. 3. Infected diabetic ulcer followed by primary and orthopedic. Dictated by PHILL Chowdary for Emilio Chadwick MD Data reviewed, discussed with Keith Rivers on 11/15/16. I agree with the above assessment and plan of care. cc: Emilio Chadwick MD [facility]
--- NOTE | 2016-11-15 20:17 | PROGRESS NOTE ---
DATE: 11/15/2016 SUBJECTIVE: This patient states that she is feeling a little bit better. She is still complaining of left ankle and foot pain, continuing with pain medications and antibiotics. OBJECTIVE: Vital Signs: Temperature 98.1 degrees, pulse 78, respiratory rate 18, blood pressure 210/92, oxygen saturation 99 on room air. HEENT: Head normocephalic. No trauma. PERRLA. Neck: Supple. No JVD. No masses. Central trachea. Chest: Clear to auscultation. No wheezing. No rales. Abdomen: Soft, nontender, nondistended. No hepatosplenomegaly. Extremities: She has upper extremity amputation and right lower extremity amputation. On the left side she has swelling and redness with an area of ulcer that is draining pus at the level of the lateral malleolus. Also pain to palpation and mobilization. Neurological: The patient is alert and oriented x3. She moves all 4 extremities. LABORATORY: WBC 7, hemoglobin 11, hematocrit 34.4, platelets 550. Sodium 140, potassium 4.6, chloride 98, bicarbonate 26, BUN 38, creatinine 6.8, glucose 78, hemoglobin A1c 4.1, calcium 9.4. ASSESSMENT AND PLAN: 1. Left diabetic foot infection. Continue with antibiotics and pain medication. Orthopedic Surgery has been consulted as well as Infectious Disease Department. 2. End-stage renal disease status post hemodialysis. The patient tolerates dialysis well. She just came back from dialysis. She is not complaining of chest pain or shortness of breath. 3. Uncontrolled diabetes. Her hemoglobin A1c is 4.1 and her glucose level has been normal with just sliding scale insulin and pattern blood sugar. I did not put this patient on long-acting insulin but she has a history of uncontrolled diabetes. 4. Uncontrolled hypertension. I put this patient back on her blood pressure medications. It looks like it is still elevated. I will put this patient also on hydralazine p.r.n. 5. Medical noncompliance. Aware. 6. Severe peripheral vascular disease. Aware. 7. Deep vein thrombosis prophylaxis. Given her kidney dysfunction I will continue with heparin twice a day subcutaneously. cc: Silvio Kirkland MD
[2016-11-16] MEDS: MORPHINE IV PRN ×4 (04:30→14:30)
[2016-11-16] MEDS: NORCO-10 PO PRN ×3 (04:30→17:54)
[2016-11-16] MEDS: APRESOLINE IV PRN ×2 (04:31→16:08)
[2016-11-16] MEDS: HUMULIN R SUBQ SCH ×4 (06:59→21:18)
[2016-11-16] MEDS: REGLAN PO SCH ×4 (06:59→16:19)
--- NOTE | 2016-11-16 08:15 | CONSULTATION ---
DATE OF CONSULTATION: 11/15/2016 REQUESTING PHYSICIAN: Dr. Parker. Consult concerning evaluation of left subclavian port site. HISTORY OF PRESENT ILLNESS: A 41-year-old female, well known to my group who has got significant peripheral vascular disease, end-stage renal disease, uncontrolled hypertension, diabetes, coronary artery disease status post multiple limb amputations who has had a left subclavian port placed in by Dr. Contreras a couple months ago. She has poor venous access. She was admitted for left diabetic foot infection. I was asked to evaluate the patient for potential issues with this port site. At this point she has other access in her neck. I was asked to evaluate for the port site. PAST MEDICAL HISTORY INCLUDES: 1. End-stage renal disease on hemodialysis. 2. Uncontrolled hypertension. 3. Uncontrolled diabetes. 4. History of cocaine abuse. 5. Severe peripheral vascular disease. 6. Medical noncompliance. PAST SURGICAL HISTORY: Includes [id number] amputation of the right leg, below the elbow amputation of both arms, previous port sites. SOCIAL: Remote history of cocaine use. No alcohol or tobacco products. FAMILY HISTORY: Reviewed with patient, noncontributory. MEDICATIONS: Current MAR reviewed. ALLERGIES: None. REVIEW OF SYSTEMS: A full 10 point review of systems obtained, negative as specified in HPI. PHYSICAL EXAMINATION: Vital Signs: Patient is currently afebrile. Her vital signs are stable. General: No acute distress. HEENT: Normocephalic, atraumatic. Pupils equal, round, react to light. Mucous membranes moist. Oropharynx benign. Neck: Supple. Trachea midline. Cardiovascular: Regular rate and rhythm. Lungs: Grossly clear. Chest wall port site to the left subclavian noted with what looks like an eschar on top of it. I debrided back some of this. I do not see any signs of erythema or purulence to suggest infection. Abdomen: Soft, nontender, nondistended. Extremities: Multiple limb amputations. Vascular: Poor vascular supply. Neurologic: Grossly intact. Skin: Port site as noted above. LABORATORY: White blood cell count 7, hematocrit 34, platelet count 550,000. Remainder of labs reviewed. ASSESSMENT/PLAN: 41-year-old female with multiple medical comorbidities with poor venous selection now with wound over her port site. 1. Multiple medical comorbidities. Currently being managed by the hospitalist service. 2. Port site concern. At this time, I would recommend the nurses do Vashe, cleaning the wound twice a day. I would like to preserve this port as much as possible. She has poor venous selection for access. Suspect that any more ports would be difficult and like to preserve this. She does have IV access currently. We will hold off on accessing this port until we get the skin cleaned up a little bit more. I appreciate the consult. cc: Aguilar Hughes MD
--- NOTE | 2016-11-16 08:43 | CONSULTATION ---
DATE OF CONSULTATION: 11/15/2016 CONCLUSION: The patient has an infected left ankle and foot. RECOMMENDATIONS: I agree with treating the patient with Zosyn, and to this I have added vancomycin. In addition, I have taken a culture from the left ankle lateral aspect where there is a small ulcer. I took a culture from that area. Also, I have ordered vancomycin to be given after each dialysis. Finally, I have ordered an MRI without IV contrast of the left ankle and foot. DISCUSSION/PRESENT ILLNESS: The patient was very lethargic. She could not supply a history. According to the patient's medical history and current reason for coming that I found from dictations and other information in the computer, the patient was admitted to the hospital with a left diabetic foot and ankle infection. The patient has a past medical history of end-stage renal disease, on hemodialysis, uncontrolled hypertension, diabetes mellitus, and coronary artery disease. The patient's lab studies show a CBC with a white count of 7030, hemoglobin 11, and platelet count 550,000. Creatinine is 6.8. GFR is 8. The patient has had x-ray of the left foot, which showed bone erosion and worse edema in the foot and ankle. Blood cultures are pending. PAST SURGICAL HISTORY: Her past surgical history, the patient has had both hands and the right foot amputated. The patient has an arteriovenous fistula in the right arm that she dialyzes through. She has a Port-A-Cath in the left neck area. She has had bilateral wvyjo-vsu-fsjbm amputations and a right-sided usmtc-dzh-fuom amputation. HOME MEDICATIONS: Include Catapres, Reglan, folic acid, lisinopril, nifedipine, and ranitidine. FAMILY HISTORY: The patient's family history is said to be noncontributory. ALLERGIES: The patient has no known drug allergies. PAST MEDICAL HISTORY: Positive for end-stage renal disease, on hemodialysis, uncontrolled hypertension, uncontrolled diabetes, history of cocaine abuse, severe peripheral vascular disease, post bilateral upper extremity amputations and right yjhdk-edp-bgdw amputation. The patient also has marked medical noncompliance. PHYSICAL EXAMINATION: Temperature is 98.1 degrees, pulse 78, respirations 18, blood pressure 210/92.General: This is an ill-appearing young female who is lethargic. Head, Eyes, Ears, Nose, and Throat: She did open her eyes to verbal stimuli. She did move her extremities on request. Neck: The patient has a Port-A-Cath in place on the left side of the neck. The site is not swollen or tender. Thorax: No increased AP diameter. Lungs: Clear to auscultation. Cardiovascular: Heart rate is regular. The patient has an AV fistula in her right arm. Extremities: The patient has bilateral bgvjs-grq-olagd amputations and a right kogyu-mnn-naqt amputation. The left ankle was very swollen, especially laterally. There was a small ulcerated area there, and I stuck the swab in to get a culture from that area. Neurologic: The patient is lethargic. She is arousable. There is no tremor. I was unable to get a history from her. REVIEW OF SYSTEMS: I was unable to do a review of systems. Thank you for the consultation. cc: Pieter Culp MD
[2016-11-16] MEDS ORDERED: SODIUM CHLORIDE 0.9% 10 ML ONE (08:55)
[2016-11-16] MEDS: ZOFRAN IV PRN ×2 (08:58→21:18)
[2016-11-16] MEDS: ZOSYN 2.25 GM in NS 50 ML IV SCH ×2 (09:23→21:18)
[2016-11-16] MEDS: CATAPRES PO SCH ×3 (11:39→17:25)
[2016-11-16] MEDS: FOLIC ACID PO SCH ×2 (11:40→16:12)
[2016-11-16] MEDS: PROCARDIA ER PO SCH ×2 (11:40→16:16)
[2016-11-16] MEDS: PRINIVIL PO SCH ×4 (11:41→21:19)
[2016-11-16] MEDS: HEPARIN SUBQ SCH ×2 (12:10→21:18)
[2016-11-16] MEDS: APRESOLINE PO SCH ×2 (16:18→21:18)
[2016-11-16] MEDS: DILAUDID IV PRN ×2 (18:48→21:17)
--- NOTE | 2016-11-16 20:27 | PROGRESS NOTE ---
DATE: 11/16/2016 SUBJECTIVE: This patient states that she is feeling fine. She is still complaining of left ankle and foot pain. Continue with pain medications and antibiotics . No acute events overnight. OBJECTIVE: Vital Signs: Temperature 98 degrees, pulse 63, respiratory rate 18, blood pressure 181/76, oxygen saturation 97 on 2 L of nasal cannula. HEENT: Head normocephalic. No trauma. PERRLA. Neck: Supple. No JVD. No masses. Central trachea. Chest: Clear to auscultation. No wheezing. No rales. Abdomen: Soft, nontender, nondistended. No hepatosplenomegaly. Extremities: She has bilateral upper extremity amputation and right lower extremity amputation, left lower extremity amputation she has swelling and redness with an ulcer that is draining pus at the level of the lateral malleolus, also painful to palpation and mobilization. Neurologic: The patient is alert and oriented x3. No focal deficits. LABORATORY: Glucose 99. ASSESSMENT AND PLAN: 1. Left diabetic foot infection. Continue with antibiotics and pain medication. Orthopedic surgery has been consulted as well as Infectious Disease Department. 2. End-stage renal disease, continue with hemodialysis as scheduled. 3. Uncontrolled diabetes. Actually this patient's blood sugar has been fine and her hemoglobin A1c is 4.1. 4. Uncontrolled hypertension. I have added a new blood pressure medication for this patient. Her blood pressure has been at the level of the 180s. 5. Medical noncompliance. Aware. 6. Severe peripheral vascular disease. Aware. 7. Deep vein thrombosis prophylaxis. Given her kidney dysfunction I will continue with heparin twice a day subcutaneously. cc: Silvio Kirkland MD
--- NOTE | 2016-11-16 22:34 | PROGRESS NOTE ---
DATE: 11/16/2016 SUBJECTIVE: The patient is sitting up on the side of the bed. She has a continual drainage to her left lower extremity. OBJECTIVE: Vital Signs: Temperature 98.0 degrees, pulse 63, respiratory rate 18, blood pressure 181/76, intake 705 mL, output 2.5 L. General: This is a middle-aged female sitting on the bed. She is awake, alert, no acute distress. HEENT: Normocephalic, atraumatic. ROSA MARIA, oral mucosa moist. She has glasses on. Neck: Supple. Trachea midline without JVD. Cardiovascular: Regular rate and rhythm. No murmur noted. Pulmonary: Equal excursion. She is clear bilaterally. Abdomen: Soft. Positive bowel sounds. : Not inspected. 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 Integumentary: Skin is warm and dry. LABORATORY DATA: No labs today. ASSESSMENT AND PLAN: 1. End-stage renal disease management. Patient has dialysis on Friday, Friday, Friday. Will plan to dialyze her on Friday. Check labs to determine her dialysis bath. 2. Vascular issues with port site to the chest wall followed by primary and surgery. 3. Left foot ulceration followed by primary and surgery. 4. Electrolytes, acid-base balance, anemia. Again see #1 for plan. Dictated by PHILL Chowdary for Emilio Chadwick MD cc: Emilio Chadwick MD
[2016-11-17] MEDS: ZOSYN 2.25 GM in NS 50 ML IV SCH ×4 (01:11→21:37)
[2016-11-17] MEDS: DILAUDID IV PRN (01:16)
[2016-11-17] MEDS: ZOFRAN ODT PO PRN ×2 (06:22→10:24)
[2016-11-17] MEDS: APRESOLINE PO SCH ×4 (06:22→21:03)
[2016-11-17] MEDS: HUMULIN R SUBQ SCH ×4 (06:22→20:56)
[2016-11-17] MEDS: REGLAN PO SCH ×3 (06:23→19:00)
[2016-11-17] MEDS: DILAUDID IM PRN ×4 (06:23→21:37)
[2016-11-17] MEDS: HEPARIN SUBQ SCH ×2 (10:00→21:38)
[2016-11-17] MEDS: PRINIVIL PO SCH ×4 (10:05→21:03)
[2016-11-17] MEDS: FOLIC ACID PO SCH ×4 (10:05→10:38)
[2016-11-17] MEDS: CATAPRES PO SCH ×4 (10:28→18:50)
[2016-11-17] MEDS: PROCARDIA ER PO SCH ×3 (10:34→10:40)
[2016-11-17] MEDS: APRESOLINE IV PRN ×2 (15:57→21:38)
--- NOTE | 2016-11-17 19:21 | PROGRESS NOTE ---
DATE: 11/17/2016 SUBJECTIVE: When I evaluated this patient, she was feeling a little bit better. She was having nausea, vomiting mostly during the night, with pain. I switched the morphine to Dilaudid, and it looks like it is working better. We have been having trouble with IV access. She had a Port-A- Cath, and Surgery Department has been following this patient to see if we can use this port. OBJECTIVE: Vital Signs: Temperature 97.9 degrees, pulse 90, respiratory rate 18, blood pressure 201/89, O2 saturation 98 on room air. HEENT: Normocephalic. No trauma. PERRLA. Neck: Supple. No JVD. No masses. Central trachea. Chest: Clear to auscultation. No wheezing. No rales. Abdomen: Soft, nontender, nondistended. No hepatosplenomegaly. Extremities: She has an upper extremity amputation and right lower extremity amputation. On the left side, she has swelling and redness, and an area of ulcer that is draining pus at the level of the lateral malleolus. Also, pain to palpation and mobilization. Neurological: The patient is alert and oriented x3. She moves all 4 extremities. LABORATORY STUDIES: Not done today due to no IV access. ASSESSMENT AND PLAN: 1. Left diabetic foot infection. Continue with antibiotics and pain medication. Orthopedic Surgery has been consulted, as well as Infectious Disease Department. We have been having trouble with IV access, and Surgery Department is on board. 2. End stage renal disease, status post hemodialysis. This patient tolerates dialysis well. Continue with the same schedule. 3. Uncontrolled diabetes. Actually, her hemoglobin A1c is 4.1, and glucose level has been normal. 4. Uncontrolled hypertension. This patient has been placed back on her home medications, and I added hydralazine. Will monitor. 5. Medical noncompliance. Aware. 6. Severe peripheral vascular disease. Aware. 7. Deep vein thrombosis prophylaxis. Continue with heparin twice a day subcutaneously. cc: Silvio Kirkland MD
[2016-11-17] MEDS: ZOFRAN IV PRN (20:53)
[2016-11-18] MEDS: PHENERGAN IV PRN ×4 (00:37→21:51)
[2016-11-18] MEDS: SODIUM CHLORIDE 0.9% INJ PRN ×2 (00:37→21:51)
[2016-11-18 06:26] LABS: MANUAL DIFF NEEDED? NO
[2016-11-18 06:42] LABS: BASO% 0.1 % (0.0-0.8); EOS# 0.02 X1000 (0.0-0.7); EOS% 0.2 % (0.0-10.0); HEMOGLOBIN 11.6 g/dL (12.0-16.0); IMM GRAN# 0.03 X1000 (0.0-0.04); IMM GRAN% 0.3 % (0.0-0.5); LYMPH# 1.15 X1000 (1.2-3.4); LYMPH% 9.7 % (20.5-51.1); MCHC 32.2 g/dL (33-37); MONO# 0.57 X1000 (0.11-0.59); MONO% 4.8 % (1.7-9.3); MPV 9.6 FL (7.4-10.4); NEUT% 84.9 % (42.2-75.2); PLT 663 X1000 (130-400); RBC 3.87 XMIL (4.2-5.4)
[2016-11-18] MEDS: APRESOLINE PO SCH ×3 (06:48→22:02)
[2016-11-18] MEDS: HUMULIN R SUBQ SCH ×4 (06:49→22:01)
[2016-11-18] MEDS ORDERED: D50W SYRINGE ONE (06:53)
[2016-11-18] MEDS: DILAUDID IV PRN ×3 (06:57→18:09)
--- NOTE | 2016-11-18 06:57 | PROGRESS NOTE ---
DATE: 11/18/2016 SUBJECTIVE DATA: Ms. Wheat is a little drowsy this morning; however, she answers questions appropriately. She is in no acute distress. She denies fever or chills. OBJECTIVE DATA: Left lower extremity exam, unfortunately the wound of the lateral malleolus is still draining purulent drainage. She still has quite a bit of edema of the leg. She has no obvious erythema. Her edema has overall improved since Friday. ASSESSMENT: Left diabetic ankle ulceration with infection. PLAN: Ms. Wheat laboratory work this morning still pending. However; she shows no obvious signs of sepsis.Vital Signs: Temperature is 97.9 degrees, pulse is 93, respiratory rate 16, blood pressure 158/77. She is on room air. The plan is still to continue with an amputation of some sort. The problem is we are not sure what level this infection is at and what level we would need to amputate. We would like for a little bit more this edema to come down. Since she is not septic, I do believe that we have some time to make these decisions. We would like to discuss surgery with her medical team, as well as with Nephrology to figure out what would be the best time to do this operation. There was some consideration for going ahead and doing a guillotine and placing a wound VAC to the leg. We will wait for further lab work and to discussed surgery with her Primary Medical Team before making any decisions. The plan is to do a below the knee amputation of some sort this week. Risks and benefits of both procedures were discussed by Dr. Benites with the patient. Risks included but are not limited to phantom limb pain, damage to nerves, arteries, veins, numbness, infection, wound healing issues, DVT, and revision of amputation. Dictated by PHILL Lei for Lewis Benites MD cc: PHILL Lei MD [facility]
--- NOTE | 2016-11-18 07:04 | PROGRESS NOTE ---
DATE: 11/18/2016 SUBJECTIVE: I discussed with the charge nurse. Yesterday they did access her port. She lost her other IV access. Her blood cultures have been negative at this point. The port site itself looks okay. OBJECTIVE: Vital Signs: The patient is currently afebrile. Her vital signs have been stable. General: No acute distress. Resting comfortably in bed. Chest: The chest wall port site access, I do not see any active signs of infection. Cardiovascular: Regular rate and rhythm. Lungs: Grossly clear. Abdomen: Soft, nontender, nondistended. LABORATORY DATA: Pending from this morning. ASSESSMENT AND PLAN: A 41-year-old female with multiple medical comorbidities with poor venous selection. 1. Multiple medical issues, at this current time being managed by the hospitalist service. 2. Leg infection, at this time, being managed by Dr. Benites with orthopedics. I did discuss with him. There is the potential that she may need an amputation. 3. Port site concern. At this time, port is accessed due to poor venous selection. The wound itself appears to be doing okay. We will try to preserve this port as much as possible. cc: Aguilar Hughes MD
[2016-11-18 07:09] LABS: ALBUMIN 3.4 g/dL (3.5-5.0); CALCIUM 9.5 mg/dL (8.8-10.2); POTASSIUM 4.6 mmol/L (3.5-5.1)
[2016-11-18] MEDS ORDERED: NS 2,000 ML ONE ×2 (07:20→12:09)
[2016-11-18] MEDS ORDERED: HEPARIN ONE ×2 (07:20→12:10)
[2016-11-18] MEDS ORDERED: HEPARIN IV PRN (08:29)
[2016-11-18] MEDS ORDERED: TIGHT: 0.2 ML/HR MISC PRN (08:29)
[2016-11-18] MEDS ORDERED: NS 2,000 ML MISC PRN (08:29)
[2016-11-18] MEDS: ZOSYN 2.25 GM in NS 50 ML IV SCH (09:21)
[2016-11-18] MEDS: PRINIVIL PO SCH ×2 (09:22→22:02)
[2016-11-18] MEDS: FOLIC ACID PO SCH (09:22)
[2016-11-18] MEDS: HEPARIN SUBQ SCH ×2 (09:22→21:59)
[2016-11-18] MEDS: CATAPRES PO SCH ×3 (09:22→18:22)
[2016-11-18] MEDS: PROCARDIA ER PO SCH (09:27)
--- NOTE | 2016-11-18 09:27 | Diag Imaging Result Doc PS360 ---
EXAM: MRI LOW EXTRMTY W/O CON-LEFT HISTORY: L ankle osteomyelitis TECHNIQUE: MRI of the left ankle, T1, STIR sagittal, T1 and STIR coronal, and T1 and T2 axial COMMENT: There is superficial soft tissue edema. There is a marked effusion in the ankle joint space with erosion of the distal fibula and tibia as well as the fragmentation of the talus. There is some marrow edema demonstrated in the lateral portion of the distal tibia and in the distal fibula. The possibility of osteomyelitis in these sites cannot be excluded. The fragments of the talus which are present may be have undergone avascular necrosis. There is also some erosion of the articular surfaces of the calcaneus in the subtalar joint region clinically posteriorly where there is some marrow edema. The cuboid, cuneiform and visualized metatarsals are normal in signal intensity. There is some apparent erosion of the lateral portion of the tarsal navicular. IMPRESSION: Possibility of focal osteomyelitis in the distal tibia, distal fibula, tarsal navicular, calcaneus, and fragments of the talus cannot be entirely excluded. It is possible, however, that all of the findings described above are due to neuropathic joint disease. Electronically signed by Chao Vargas 11/18/2016 9:25 AM
--- NOTE | 2016-11-18 11:45 | PROGRESS NOTE ---
DATE: 11/18/2016 SUBJECTIVE: Patient is resting in bed. She went down for an MRI of her foot earlier. OBJECTIVE: Vital signs: Temperature 98 degrees, pulse 97, respiratory rate 21 , blood pressure 202/87. Intake 240 mL. Output none. General: This is a middle-aged female, resting in bed. She is resting. She has received some pain medication. HEENT: Normocephalic, atraumatic. Her oral mucosa is moist. She has glasses on. Conjunctivae are pink. Neck: Supple. Trachea midline. No JVD discerned. Cardiovascular: Regular rate and rhythm. No murmur. Pulmonary: She has equal excursion. She is clear bilaterally. She is on 2 L nasal cannula. Abdomen: Soft, with positive bowel sounds. No tenderness. : Not inspected. Extremities: Multiple limb amputations, bilateral below elbow and right BKA. Left lower extremity ankle is wrapped with gauze dressing. It has drainage noted. Integumentary: Skin is warm and dry. LAB DATA: WBC of 11.9, hemoglobin 11.6. Sodium 144, potassium 4.6, CO2 30, calcium 7.6, phosphorus 9.7. Albumin 3.7. MRI with questionable osteomyelitis. She had cultures of the ankle that are growing Klebsiella pneumoniae. ASSESSMENT AND PLAN: 1. End-stage renal disease management. Today is her routine dialysis day. We will plan to dialyze her on a 2 K bath/UF to dry weight 4-hour treatment. She received vancomycin after each dialysis treatment. 2. Electrolytes, acid-base balance anemia. These are acceptable. See #1 for plan. 3. Left foot ulceration with Klebsiella pneumoniae. She is on vancomycin and Zosyn. We understand that Orthopedics has seen her, and there is a tentative plan for some level of below knee amputation later on this week. Dictated by PHILL Chowdary for Emilio Chadwick MD Patient seen, data reviewed, discussed with Keith Rivers on 11/18/16. I agree with the above assessment and plan of care. cc: Emilio Chadwick MD [facility]
--- NOTE | 2016-11-18 16:14 | PROGRESS NOTE ---
DATE: 11/18/2016 SUBJECTIVE: This patient is feeling better. We are using the Port-A-Cath now. Her pain has improved. We have a positive culture from the wound that showed Klebsiella but we have a blood culture that showed 1 or 2 gram-positive cocci. She has been placed on vancomycin. We will wait for the final results. Infectious Disease Department is following this patient closely. OBJECTIVE: Vital Signs: Temperature is 98 degrees, pulse 97, respiratory rate 21, blood pressure was 202/87, O2 saturation 100% on room air. HEENT: Head normocephalic. No trauma. PERRLA. Neck: Supple. No JVD. No masses. Central trachea. Chest: Clear to auscultation. No wheezing. No rales. Abdomen: Soft, nontender, nondistended. No hepatosplenomegaly. Extremities: She has bilateral upper extremity amputation and left lower extremity amputation has swelling and redness and an area of ulcer that has been draining pus at the level of the lateral malleolus. Also pain to palpation and mobilization. Neurologic: The patient is alert and oriented x3. She moves all 4 extremities. LABORATORY: WBC 11.9, hemoglobin 11.6, hematocrit 36, platelets 663,000. Sodium 144, potassium 4.6, chloride 94, bicarbonate 30, BUN 44, creatinine 7.6, glucose 70, calcium 9.5, albumin 3.4. ASSESSMENT AND PLAN: 1. Left diabetic foot infection. Continue with antibiotics and pain medication. Orthopedic surgery has been following this patient. Probably, this patient will go for surgery next Friday or . We have been having trouble with the IV access and finally we are using the Port-A-Cath. 2. We have a positive wound culture that showed Klebsiella. We will continue with antibiotics. 3. Possible bacteremia. We have a positive blood culture that showed gram-positive cocci 1out of 2. We have placed this patient on vancomycin and we will follow. 4. End-stage renal disease. Continue with hemodialysis as scheduled. 5. Uncontrolled diabetes. Actually the hemoglobin A1c is 4.1, and glucose level has been normal. 6. Uncontrolled hypertension. This patient has been placed back on her home medication and I added already hydralazine but the blood pressure is still high. I will try to modify the medication to see if that works. 7. Severe peripheral vascular disease. Aware. 8. Deep vein thrombosis prophylaxis. Continue with heparin twice a day, subcutaneously, given her kidney injury. cc: Silvio Kirkland MD
[2016-11-18] MEDS ORDERED: VANCOMYCIN 1 GM/NS 1 GM/250 ML IVPB IV ONE (17:00)
[2016-11-18] MEDS ORDERED: MAXIPIME 1 GM in NS 50 ML IV SCH (17:45)
[2016-11-18] MEDS ORDERED: MAXIPIME 1 GM in NS 50 ML IV ONE (18:00)
--- NOTE | 2016-11-18 18:17 | PROGRESS NOTE ---
DATE: 11/18/2016 PRESENT ILLNESS: The patient had 2 positive blood cultures today. Both are growing gram-positive cocci. If the organism turns out to be Staph aureus, the patient's Port-A-Cath will have to be removed and the patient already is on vancomycin, which should cover the Staph aureus. If the patient's 2 blood cultures are growing the same coagulase-negative staphylococcus, then we can try to treat the patient for 2 to 3 weeks with vancomycin and, hopefully, we can salvage the Port-A- Cath. It would, in fact, be best if we would give her the vancomycin through the Port-A-Cath. In addition, the MRI on the patient's left ankle shows that it is either diffuse osteomyelitis or a neuropathic joint. MEDICATIONS: The patient is on cefepime to be given after each dialysis, as well as vancomycin to be given after each dialysis. PHYSICAL EXAMINATION: Vital Signs: Temperature is 98 degrees, respirations 21, blood pressure 202/87. General: This is an ill-appearing, middle-aged female. She is in no acute distress. Lungs: Clear to auscultation. Cardiovascular: Regular heart rate. Abdomen: Soft and nontender. Extremities: The patient's left ankle has a large dressing around it. The patient's right arm has an AV fistula. The site is not draining or tender. chest: The patient has a Port-A-Cath present on the left side. The site is not swollen or draining. LABORATORY AND X-RAY: The MRI shows either diffuse osteomyelitis or neuropathic joint disease in the patient's left ankle. The culture from the patient's foot is growing Klebsiella. The last 2 blood cultures on the patient are both growing gram-positive cocci, which have not been identified as of yet. The patient's CBC shows a white count of 11,910, hemoglobin 11.6, and platelet count 663,000. Creatinine is 7.6. GFR is 7. ASSESSMENT AND PLAN: I have started the patient on cefepime, to be given IV after each dialysis. Also, I am going to continue with vancomycin IV after each dialysis. This is all pending the results of the patient's blood culture. The patient's comorbidities include: 1. Peripheral vascular disease. 2. End-stage renal disease. She is on dialysis. cc: Pieter Culp MD
[2016-11-19] MEDS: DILAUDID IV PRN ×4 (04:25→22:19)
[2016-11-19] MEDS: APRESOLINE PO SCH ×3 (06:26→22:18)
[2016-11-19] MEDS: HUMULIN R SUBQ SCH ×4 (06:26→22:17)
[2016-11-19 06:40] LABS: HEMATOCRIT 31.2 % (37.0-47.0); HEMOGLOBIN 9.6 g/dL (12.0-16.0); MCHC 30.8 g/dL (33-37); MCV 97.5 FL (81-99); MPV 9.4 FL (7.4-10.4); RBC 3.2 XMIL (4.2-5.4)
[2016-11-19 06:51] LABS: ALBUMIN 3.2 g/dL (3.5-5.0); CALCIUM 8.9 mg/dL (8.8-10.2); POTASSIUM 4.3 mmol/L (3.5-5.1)
--- NOTE | 2016-11-19 08:11 | PROGRESS NOTE ---
DATE: 11/19/2016 SUBJECTIVE DATA: Ms. Wheat is lying comfortably in bed. She is much more alert and talkative this morning. She states she does understand there is a need for amputation of this left lower limb. OBJECTIVE DATA: Left lower extremity exam: The dressing is completely saturated with purulent drainage. Even the pad has drainage on it. She has no sensation to the foot. She has a very weak pulse. Still has a considerable amount of edema to the left leg. VITAL SIGNS: Temperature is 98.1 degrees, pulse is 75, blood pressure 161/77. This is on room air. MICROBIOLOGY: Blood cultures still have no growth. Culture of the left ankle is growing Klebsiella pneumonia. ASSESSMENT: Left infected diabetic ankle ulcer. PLAN: The plan is to proceed with a guillotine amputation of the left lower extremity on Friday. We will make her NPO today. I put in for consent. We will plan to do revision of that sometime next week. We would like to stay in the hospital during that time , and continue on IV antibiotics. We will continue to follow her progress. We will plan on applying a wound VAC to the left lower limb after the guillotine. Risk and benefits have been explained to her by Dr. Benites. Risks include, but are not limited to, damaging nerves, arteries, veins , phantom limb pains, risk of infection, risk of wound healing issue, risk of DVT, and risk of anethesia. Dictated by PHILL Lei for Lewis Benites MD cc: PHILL Lei MD [facility]
[2016-11-19] MEDS: SODIUM CHLORIDE 0.9% INJ PRN ×2 (08:59→14:04)
[2016-11-19] MEDS: HEPARIN SUBQ SCH ×2 (08:59→22:18)
[2016-11-19] MEDS: PROCARDIA ER PO SCH (08:59)
[2016-11-19] MEDS: CATAPRES PO SCH ×3 (08:59→19:05)
[2016-11-19] MEDS: PHENERGAN IV PRN ×3 (08:59→22:18)
[2016-11-19] MEDS: FOLIC ACID PO SCH (08:59)
[2016-11-19] MEDS: PRINIVIL PO SCH ×2 (08:59→22:18)
--- NOTE | 2016-11-19 09:45 | PROGRESS NOTE ---
DATE: 11/19/2016 SUBJECTIVE: Patient resting in bed. She believes that she is supposed to go for surgery on . OBJECTIVE: Vital Signs: Temperature 98.1 degrees, pulse 75, respiratory rate 16, blood pressure 161/77. Intake 730 mL; output not measured. General: Middle-aged female resting in bed. She is awake and alert. No acute distress. HEENT: Normocephalic, atraumatic. Oral mucosa moist. Conjunctivae are pink. Neck: Supple. Trachea midline without JVD. Cardiovascular: Regular rate and rhythm without murmur or gallop. Pulmonary: Equal excursion. Remains on 2 L nasal cannula. She is clear bilaterally and no increased work of breathing. Abdomen : Soft, with positive bowel sounds. : Not inspected. Extremities: Bilateral below elbow and right BKA noted. Left lower extremity remains wrapped with a gauze dressing and significant drainage noted through the gauze and onto the bed linen protector. Integumentary: Skin is warm and dry otherwise. LAB DATA: WBC of 7.5, hemoglobin 9.6. Sodium 140, potassium 4.3, CO2 33. BUN 26, creatinine 5.7, albumin 3.2 and calcium 8.9. ASSESSMENT AND PLAN: 1. End-stage renal disease management. Tomorrow will be her routine dialysis day. We will plan to dialyze her then. Check labs in the morning. Adjust her weight as appropriate. 2. Left foot ulceration with Klebsiella pneumonia on vancomycin and Zosyn. Understand orthopedics plan is for a guillotine amputation with revision later on. Anticipate the patient will remain in the hospital for several more days following. We will continue her dialysis as warranted. Dictated by PHILL Chowdary for Emilio Chadwick MD Patient seen, data reviewed, discussed with Keith Rivers on 11/19/16. I agree with the above assessment and plan of care. cc: MD FABY Cain
--- NOTE | 2016-11-19 11:22 | PROGRESS NOTE ---
DATE: 11/19/2016 SUBJECTIVE: This patient is feeling better today. She denies nausea, vomiting. We are using a Port-A-Cath now. We have a positive blood culture 02/27 that showed gram-positive cocci and wound culture showed Klebsiella. Infectious Disease Department following this patient. OBJECTIVE: Vital Signs: Temperature 98 degrees, pulse 82, respiratory rate 19, blood pressure 177/78, oxygen saturation 98 on room air. HEENT: Head normocephalic. No trauma. PERRLA. Neck: Supple. No JVD. No masses. Central trachea. Chest: Clear to auscultation. No wheezing. No rales. Abdomen: Soft, nontender, nondistended. No hepatosplenomegaly. Extremities: This patient has bilateral upper extremity amputation and right lower extremity amputation. Her left leg has swelling, redness and an area of ulcer that has been draining pus at the level of the lateral malleolus. Also, pain to mobilization. Neurological examination: The patient is alert and oriented x3. No focal deficits. LABORATORY: WBC 7.5, hemoglobin 9.6, hematocrit 31.2, platelets 505. Sodium 140, potassium 4.3, chloride 96, bicarbonate 33, BUN 26, creatinine 5.7, glucose 77, calcium 7.1, albumin 3.2. ASSESSMENT AND PLAN: 1. Left diabetic foot infection. I will continue with antibiotics. She is on meropenem and vancomycin. Orthopedic surgery has been following this patient; probably this patient will get surgery tomorrow. She will have a new amputation. 2. We have a positive culture that showed Klebsiella pneumonia at the level of the left leg infection. 3. Possible bacteremia. We have a positive culture that showed gram-positive cocci /. We have placed this patient on vancomycin. We will follow. Hopefully this will be a contaminant. 4. End-stage renal disease. Continue with hemodialysis as scheduled. 5. Diabetes, stable. 6. Uncontrolled hypertension. We will continue to monitor. The blood pressure is still high, but better compared with the previous days. 7. Severe peripheral vascular disease. Aware. 8. Deep vein thrombosis prophylaxis. Continue with heparin twice a day given her kidney dysfunction. cc: Silvio Kirkland MD
[2016-11-19] MEDS: ZOFRAN IV PRN (18:20)
[2016-11-20] MEDS: DILAUDID IV PRN ×3 (05:31→22:39)
[2016-11-20] MEDS: PHENERGAN IV PRN ×2 (05:32→17:17)
[2016-11-20] MEDS: APRESOLINE IV PRN (05:47)
[2016-11-20] MEDS: APRESOLINE PO SCH ×3 (05:58→22:40)
[2016-11-20] MEDS: HUMULIN R SUBQ SCH ×3 (05:59→22:19)
[2016-11-20 06:33] LABS: MANUAL DIFF NEEDED? NO
[2016-11-20 06:43] LABS: BASO% 0.2 % (0.0-0.8); EOS# 0.26 X1000 (0.0-0.7); EOS% 4.1 % (0.0-10.0); HEMATOCRIT 33.7 % (37.0-47.0); HEMOGLOBIN 10.3 g/dL (12.0-16.0); LYMPH# 1.45 X1000 (1.2-3.4); LYMPH% 22.7 % (20.5-51.1); MCH 28.9 PG (27-31); MCHC 30.6 g/dL (33-37); MCV 94.7 FL (81-99); MONO# 0.86 X1000 (0.11-0.59); MONO% 13.5 % (1.7-9.3); MPV 9.2 FL (7.4-10.4); NEUT% 59.5 % (42.2-75.2); PLT 486 X1000 (130-400); RBC 3.56 XMIL (4.2-5.4)
[2016-11-20 07:17] LABS: CALCIUM 9.1 mg/dL (8.8-10.2); POTASSIUM 4.4 mmol/L (3.5-5.1)
--- NOTE | 2016-11-20 07:51 | PROGRESS NOTE ---
DATE: 11/20/2016 SUBJECTIVE: Ms. Wheat is lying in bed this morning. Overall doing okay. OBJECTIVE: Left Lower Extremity Examination: Still draining the left ankle. Left ankle is bandaged this morning. Ankle remains completely unstable. She is still getting swelling up in the leg as well. ASSESSMENT: Left infected diabetic Charcot ankle. PLAN: I discussed with Ms. Wheat again that today the plan is for a guillotine amputation of the left leg distally and placement of a wound VAC. This will allow us to also assess blood flow and make sure there is no infection in the leg before we do a definitive amputation. I went over with her the procedure, risks, benefits, and potential complications. Risks include, but are not limited to, infection, wound healing problems, bleeding, phantom limb pain, DVT, anesthesia related risks. After discussing these with the patient, she expressed understanding and wished to proceed. She is NPO. We will plan on getting this done around noon today. cc: Lewis Benites MD
[2016-11-20] MEDS: HEPARIN SUBQ SCH ×2 (08:00→22:40)
[2016-11-20] MEDS ORDERED: HEPARIN IV PRN (08:15)
[2016-11-20] MEDS ORDERED: NS 2,000 ML MISC PRN (08:15)
[2016-11-20] MEDS ORDERED: TIGHT: 0.2 ML/HR MISC PRN (08:15)
[2016-11-20] MEDS ORDERED: DIPRIVAN 1% ONE (10:46)
[2016-11-20 12:33] LABS: MANUAL DIFF NEEDED? NO
[2016-11-20 12:41] LABS: BASO% 0.3 % (0.0-0.8); EOS# 0.28 X1000 (0.0-0.7); EOS% 3.8 % (0.0-10.0); HEMATOCRIT 35.1 % (37.0-47.0); HEMOGLOBIN 11.1 g/dL (12.0-16.0); LYMPH# 1.34 X1000 (1.2-3.4); LYMPH% 18.4 % (20.5-51.1); MCH 29.6 PG (27-31); MCHC 31.6 g/dL (33-37); MCV 93.6 FL (81-99); MONO# 1.04 X1000 (0.11-0.59); MONO% 14.2 % (1.7-9.3); MPV 9.2 FL (7.4-10.4); NEUT% 63.3 % (42.2-75.2); PLT 529 X1000 (130-400); RBC 3.75 XMIL (4.2-5.4)
[2016-11-20 12:48] LABS: CALCIUM 8.6 mg/dL (8.8-10.2); INR 1.08; POTASSIUM 3.4 mmol/L (3.5-5.1); PROTIME 11.4 Seconds (9.2-11.7); PTT 31.9 Seconds (22.0-36.0)
[2016-11-20] MEDS ORDERED: ZOFRAN ONE (13:03)
[2016-11-20] MEDS ORDERED: XYLOCAINE-MPF 2% ONE (13:30)
[2016-11-20] MEDS: DILAUDID ONE ×3 (13:40→13:55)
--- NOTE | 2016-11-20 15:45 | PROGRESS NOTE ---
DATE: 11/20/2016 SUBJECTIVE: This patient just came back from surgery. They did a left leg jqsqj-cem-eoyf amputation, due to the left diabetic foot infection. For now, we will continue with antibiotics. I will place this patient on a full liquid diet and if she tolerates, I will put this patient on a diabetic diet. I will add [place] to her medications and I will continue with Dilaudid. OBJECTIVE: Vital Signs: Temperature 97.6 degrees, pulse 82, respiratory rate 12, blood pressure 158/75, oxygen saturation 100% on 2 L of nasal cannula. HEENT: Normocephalic. No trauma. PERRLA. Neck: Supple. No JVD. No masses. Central trachea. Chest: Clear to auscultation. No wheezing. No rales. Abdomen: Soft, nontender, nondistended. No hepatosplenomegaly. Extremities: She has upper extremity amputations bilaterally and right lower extremity amputation. Today, she had a new BKA on the left lower extremity with a wound VAC that is working fine. She is not complaining of pain at this moment. Neurological: The patient is alert and oriented x3. No focal deficits. She moves all 4 extremities. LABORATORY: WBC 7.3, hemoglobin 11.1, hematocrit 35.1, platelets 529,000, sodium 139, potassium 3.4, chloride 98, bicarbonate 28, BUN 14, creatinine 3.3, glucose 69, calcium 8.6, phosphorus 7.6, albumin 3. ASSESSMENT AND PLAN: 1. Left diabetic foot infection status post left below-knee amputation, unfortunately this patient has severe peripheral vascular disease and infection on this leg. Orthopedic Surgery Department wants to keep this patient hospitalized to get antibiotics and to perform another surgery probably next week. For now, we will continue with the wound VAC, antibiotics, pain medication and trying to control the blood pressure. 2. We have a positive culture that showed Klebsiella pneumonia at the level of the left leg infection, continue with antibiotics. 3. Possible bacteremia. We have a positive blood culture that showed gram-positive 1/4. This patient has been placed on vancomycin and Infectious Disease Department following this patient. Hopefully this is contaminant. 4. End-stage renal disease. Continue with hemodialysis as scheduled. 5. Diabetes. Stable. 6. Uncontrolled hypertension. Continue to monitor. Blood pressure is still high, but compared with the previous days, it is a little bit better. 7. Severe peripheral vascular disease. Aware. 8. Deep vein thrombosis prophylaxis. Continue with heparin twice a day. cc: Silvio Kirkland MD
[2016-11-20 15:47] LABS: I-STAT BE 10 mmoll (-2-3); I-STAT GLUCOSE 71 mg/dL (70-105); I-STAT HCO3 31.9 mmoll (22.0-26.0); I-STAT HEMATOCRIT 36 % (38-51); I-STAT HEMOGLOBIN 12.2 g/dL (11.5-17.5); I-STAT IONIZED CALCIUM 1.06 mmoll (1.12-1.32); I-STAT K 3.4 mmoll (3.5-4.9); I-STAT PCO2 32.4 mmHg (35.0-45.0); I-STAT SO2 90 % (95-98); I-STAT SODIUM 139 mmoll (138-146); I-STAT TCO2 33 mmoll (23-27); I-STAT pH 7.602 (7.350-7.450)
--- NOTE | 2016-11-20 16:08 | PROGRESS NOTE ---
DATE: 11/20/2016 SUBJECTIVE: The patient resting in bed. She is immediately post surgical recovery. OBJECTIVE: Vital signs: Temperature 97.6 degrees, pulse 82, respiratory rate 12, blood pressure 158/75. Intake 250 mL. Output 3.5 L. General: A middle-aged female, resting in bed. Awake and alert, in no acute distress. HEENT: Normocephalic, atraumatic. Oral mucosa moist. She has glasses on. Conjunctivae pink. Neck: Supple. Trachea midline. No JVD. Cardiovascular: Regular rate and rhythm. No murmur or gallop. Pulmonary: Equal excursion. She is clear bilaterally. There is no increased work of breathing on 2 L nasal cannula. Abdomen: Soft, with positive bowel sounds. Genitourinary: Not inspected. She has minimal void with hemodialysis assist. Extremities: Bilateral below elbow and bilateral BKA noted. The left is a fresh postop. Remains wrapped in compression dressing. No drainage. Has a wound VAC noted. Integumentary: Skin is warm and dry. LABORATORY DATA: WBC of 7.3, hemoglobin 11.1. Sodium 139, potassium 3.4, CO2 28, creatinine 3.3. ASSESSMENT AND PLAN: 1. End-stage renal disease management. Today was her dialysis day. She underwent dialysis with no difficulty prior to going to surgery. Continue her on a Friday, Friday , Friday schedule while she is in the hospital. 2. Electrolytes, acid-base balance, anemia. These have been stable. Continue to follow labs. Adjust her dialysis bath as appropriate. 3. Left foot ulceration with Klebsiella pneumonia. The patient underwent initial definitive treatment today with a below-knee amputation to the left. We understand that she will likely need a revision to this before she is discharged. This is followed by Primary and Ortho. Dictated by PHILL Chowdary for Emilio Chadwick MD Patient seen, data reviewed, discussed with Keith Rivers on 11/20/16. I agree with the above assessment and plan of care. cc: Emilio Chadwick MD [facility]
[2016-11-20] MEDS: CATAPRES PO SCH ×3 (16:09→16:11)
[2016-11-20] MEDS: FOLIC ACID PO SCH (16:11)
[2016-11-20] MEDS: PROCARDIA ER PO SCH (16:11)
[2016-11-20] MEDS: PRINIVIL PO SCH ×2 (16:14→22:21)
--- NOTE | 2016-11-20 16:52 | OPERATIVE NOTE ---
PROCEDURE DATE: 11/20/2016 PREOPERATIVE DIAGNOSIS: Left infected Charcot ankle. POSTOPERATIVE DIAGNOSIS: Left infected Charcot ankle. PROCEDURE: Left guillotine kschf-rid-pwen amputation. SURGEON: Lewis Benites MD. INSIDE SALES ACCOUNT REPRESENTATIVE: PHILL Lei, who was an integral part of the procedure who helped with approach, hemostasis and wound VAC application. ANESTHESIA: General with LMA. ESTIMATED BLOOD LOSS: 500 mL. SPECIMEN: Left foot. DRAINS: Wound VAC. DISPOSITION: To PACU, hemodynamically stable. INDICATION FOR PROCEDURE: Ms. Wheat is a 41-year-old female, who I have been following in wound center for wound on her left foot and then left ankle. She has had all other extremities amputated secondary to vascular and diabetic complications. We were actually planning on saving this left side doing a big Charcot reconstruction. Unfortunately, last time I saw her in wound clinic, she had a lot of purulent material draining out of the ankle wound, so discussed with her about amputation. She was placed in the hospital that day, she underwent antibiotic therapy and medical management to try to get her pressures under control and get her set for surgery. She was okayed to go to surgery from the Medicine standpoint today. So discussed with her the procedure risks, benefits, potential complications, and she expressed understanding and wished to proceed. DESCRIPTION OF PROCEDURE: Ms. Wheat was identified in the preoperative holding area. Left leg was marked as correct surgical site. She was then wheeled to the operative room, placed supine on the operating table. All bony prominences well padded. She was induced under general anesthesia. LMA was placed. Tourniquet placed to the left thigh. Left lower extremity was then prepped with Betadine and Betadine solution and draped in normal sterile fashion. Surgical pause was performed. We identified the correct patient, correct side, and the correct procedure. Preoperative antibiotics were given which she had already been having those scheduled. Tourniquet was inflated to 300 mmHg. Total tourniquet time was 16 minutes. I started with a circular incision at the distal leg and then used the Gigli saw to cut through the soft tissue and bone and then we removed the foot. At this point, we used hemostats and was able to clamp off her vessels then used silk ties and tied those off and used electrocautery as well for the smaller vessels. The tourniquet was then let down after that, and hemostasis was very good so we decided to go and put a wound VAC on at that point. Wound VAC was then placed, and placed to 125 mm suction. Leg was wrapped then with a soft roll and Mario. She was then wheeled from general anesthesia, moved to her own bed and taken to the PACU in stable condition. Postop, patient will be nonweightbearing left lower extremity. I will plan definitive surgery more than likely early this next week. She will continue on IV antibiotics. cc: Lewis Benites MD
[2016-11-20] MEDS ORDERED: MAXIPIME 1 GM in NS 50 ML IV ONE (17:00)
[2016-11-20] MEDS ORDERED: VANCOMYCIN 1 GM/NS 1 GM/250 ML IVPB IV ONE (17:00)
--- NOTE | 2016-11-20 19:50 | PROGRESS NOTE ---
DATE: 11/20/2016 PRESENT ILLNESS: The patient has 1 of 2 positive blood cultures for gram positive cocci. This could be a contaminant or it could be a pathogen. The patient today underwent a left below-the- knee amputation because of the badly infected left ankle with Charcot arthropathy. MEDICATIONS: The patient is receiving vancomycin and cefepime after each dialysis. PHYSICAL EXAMINATION: Vital Signs: Temperature is 98 degrees, pulse 90, respirations 14, blood pressure 103/51. General: This is a lethargic young female. She has recently come back from surgery. Lungs: Clear to auscultation. Cardiovascular: Regular heart rate. Abdomen: Soft and not tender. Extremities: The patient has a large dressing around the left leg. In the right upper arm, there is an AV fistula which is functional. In the left chest, there is a Port-A-Cath which also is functional. The site is not swollen. Lungs: Clear to auscultation. Cardiovascular: Regular heart rate. Abdomen: Soft and nontender. LAB AND X-RAY: As mentioned above, 1 of 2 blood cultures is growing gram positive cocci. The patient's creatinine is 3.3. The GFR is 19. CBC shows a white count of 7300, hemoglobin 11.1, and platelet count 529,000. Patient's blood gases show a pH of 7.6, a PO2 of 48 with a pCO2 of 32. ASSESSMENT AND PLAN: The patient is status post amputation. She has 1 of 2 blood cultures that are positive. My plan is to continue the current antibiotics pending the final report of the of blood culture that is positive. COMORBIDITIES: End-stage renal disease, peripheral vascular disease and a hemodialysis and diabetes mellitus. cc: Pieter Culp MD
[2016-11-21] MEDS: DILAUDID IV PRN ×4 (04:03→20:21)
[2016-11-21] MEDS: NORCO-7.5 PO PRN (06:02)
[2016-11-21] MEDS: APRESOLINE PO SCH ×3 (06:02→23:14)
[2016-11-21] MEDS: ZOFRAN IV PRN ×2 (06:03→18:02)
[2016-11-21] MEDS: HUMULIN R SUBQ SCH ×4 (06:17→23:15)
[2016-11-21 07:04] LABS: MANUAL DIFF NEEDED? NO
[2016-11-21 07:14] LABS: BASO% 0.3 % (0.0-0.8); EOS# 0.25 X1000 (0.0-0.7); EOS% 3.7 % (0.0-10.0); HEMATOCRIT 26.7 % (37.0-47.0); HEMOGLOBIN 8.1 g/dL (12.0-16.0); LYMPH# 1.85 X1000 (1.2-3.4); LYMPH% 27.3 % (20.5-51.1); MCHC 30.3 g/dL (33-37); MCV 95.7 FL (81-99); MONO% 10.3 % (1.7-9.3); MPV 9.6 FL (7.4-10.4); NEUT% 58.4 % (42.2-75.2); PLT 433 X1000 (130-400); RBC 2.79 XMIL (4.2-5.4)
--- NOTE | 2016-11-21 07:17 | PROGRESS NOTE ---
DATE: 11/21/2016 SUBJECTIVE DATA: Ms. Wheat is laying comfortably in bed. She is awake and alert. She does state she has some pain to the left leg. She denies fever or chills. Overall, she feels a little better. OBJECTIVE DATA: Left lower extremity: The wound VAC is secured to suction. Has been some bloody drainage noted. Overall, the edema in the leg is greatly improved. There is no erythema noted. She is moving the leg well. ASSESSMENT: Left infected Charcot ankle status post left guillotine below-knee amputation. PLAN: We will continue Ms. Wheat' wound VAC for now. We do want to keep her for a few days and keep her on IV antibiotics. We will plan to do a revision BKA on Friday. Dr. Benites did explain the procedure risks, benefits, and great detail with her today. We will plan to make her NPO Friday. Dictated by PHILL Lei for Lweis Benites MD cc: PHILL Lei MD
[2016-11-21 07:33] LABS: CALCIUM 8.6 mg/dL (8.8-10.2); POTASSIUM 4.4 mmol/L (3.5-5.1)
[2016-11-21] MEDS: HEPARIN SUBQ SCH ×2 (09:56→23:14)
[2016-11-21] MEDS: PROCARDIA ER PO SCH (09:57)
[2016-11-21] MEDS: PRINIVIL PO SCH ×2 (09:57→23:14)
[2016-11-21] MEDS: FOLIC ACID PO SCH (09:57)
[2016-11-21] MEDS: CATAPRES PO SCH ×3 (09:57→23:14)
--- NOTE | 2016-11-21 14:56 | PROGRESS NOTE ---
DATE: 11/21/2016 SUBJECTIVE: The patient resting in bed, asleep. She will rouse to verbal and tactile stimuli. She interacts appropriately. OBJECTIVE: Vital signs: Temperature 98.6 degrees, pulse 81, respiratory rate 18, blood pressure 139/71. Intake 1 L, output 3.5 L. general: This is a middle-aged female, resting in bed. She is in no acute distress. HEENT: Normocephalic, atraumatic. She has glasses on. Conjunctivae pale. Oral mucosa moist. Neck: Supple. Trachea midline. There is no JVD. Cardiovascular: Regular rate and rhythm, without murmur or gallop. Pulmonary: Equal excursion. She is clear bilaterally. Abdomen: Soft, positive bowel sounds. Genitourinary: Not inspected. Extremities: New left BKA remains wrapped, with a wound VAC in place. She has bilateral upper extremity lower below-elbow amputations, and a right BKA noted as well. Integumentary: Skin is warm and dry otherwise. LABORATORY DATA: WBC of 6.7, hemoglobin 8.1 (11.1). Sodium 138, potassium 4.4 , CO2 of 29, BUN 12, creatinine 5.0, calcium 8.6. ASSESSMENT AND PLAN: 1. End-stage renal disease management. She has a Friday, Friday, and Friday schedule. We will plan to dialyze her tomorrow. Check labs in the morning. Adjust her dialysis bath as needed. 2. Anemia, secondary to chronic disease and likely blood loss during surgery. Continue to monitor. Transfuse if needed. Continue Epogen. 3. Klebsiella pneumonia. She is followed by Infectious Disease for antibiotic therapy. 4. Left below-knee amputation. She had a guillotine procedure done this week. We understand that they are going to let her rest on the wound VAC over the weekend, and plan to do a definitive BKA on Friday. Dictated by PHILL Chowdary for Emilio Chadwick MD Patient seen, data reviewed, discussed with Keith Rivers on 11/21/16. I agree with the above assessment and plan of care. cc: Emilio Chadwick MD [facility]
--- NOTE | 2016-11-21 17:13 | PROGRESS NOTE ---
DATE: 11/21/2016 SUBJECTIVE: Patient reports feeling fine. Complains of feeling pain in the left leg. Denies any fever or chills. OBJECTIVE: Vital Signs: Temperature 97.8 degrees, heart rate 78, respiratory rate 19, blood pressure 122/50, O2 saturation 100% on room air. General Examination: This is a chronically ill- looking, 41-year-old female lying in bed, in no acute distress. HEENT: Head is normocephalic, atraumatic. Neck: Supple. No JVD noted. No carotid bruits. Cardiovascular: S1, S2 heard. No murmurs, gallops, or rubs. Regular rate and rhythm. Respiratory: Clear bilaterally to auscultation. No work of breathing or using accessory muscles. Abdomen: Soft, nontender to palpation. No organomegaly. Extremities: She has bilateral upper extremity amputations and the right lower extremity amputation and she got a new BKA in the left lower extremity with a wound VAC. Neurologic: Patient is alert and oriented x3. No focal deficit. Patient moves 4 stumps. LABORATORY DATA: The CBC is 6.78, hemoglobin 8.1m hematocrit 26.7, platelets 433,000, with normal BMP except creatinine 5. ASSESSMENT AND PLAN: 1. Left diabetic foot infection, status post left hpstx-eye-mehr amputation. She underwent left below-knee amputation yesterday. The patient had a wound VAC. Dr. Benites from Orthopedics is planning to keep this patient until next Friday to have a BKA revision. I will follow his recommendations. 2. Possible bacteremia. Patient blood culture showed in the culture from the left ankle Klebsiella pneumonia. One of the blood cultures shows Staph is negative. Dr Culp is following this patient. Currently this patient is on cefepime and vancomycin. We will continue with the same management. 3. Endstage renal disease, on dialysis. Dr. Chadwick is following this patient. 4. Diabetes mellitus type 2, on sliding scale insulin. 5. Uncontrolled hypertension. We will follow up. With the medications that she is getting, patient blood pressure is much better. Is 120s and 140s most of the time. We will continue with same management. 6. Severe peripheral vascular disease. Aware. 7. Deep vein thrombosis prophylaxis. Patient is on heparin. cc: Cali Mccormick MD
[2016-11-21] MEDS: PHENERGAN IV PRN (23:15)
[2016-11-22] MEDS: DILAUDID IV PRN ×5 (00:39→21:58)
[2016-11-22] MEDS: HUMULIN R SUBQ SCH ×3 (06:43→17:10)
[2016-11-22] MEDS ORDERED: TIGHT: 0.2 ML/HR MISC PRN (07:01)
[2016-11-22] MEDS ORDERED: HEPARIN IV PRN (07:01)
[2016-11-22] MEDS ORDERED: NS 2,000 ML MISC PRN (07:01)
[2016-11-22 07:42] LABS: HEMATOCRIT 25.1 % (37.0-47.0); HEMOGLOBIN 7.6 g/dL (12.0-16.0); MCH 28.9 PG (27-31); MCHC 30.3 g/dL (33-37); MCV 95.4 FL (81-99); MPV 9.9 FL (7.4-10.4); RBC 2.63 XMIL (4.2-5.4)
[2016-11-22 07:47] LABS: ALBUMIN 2.7 g/dL (3.5-5.0); CALCIUM 9.2 mg/dL (8.8-10.2); POTASSIUM 4.8 mmol/L (3.5-5.1)
--- NOTE | 2016-11-22 08:03 | PROGRESS NOTE ---
DATE: 11/22/2016 SUBJECTIVE: Ms. Wheat is lying in bed this morning, seems to be in a little bit better spirits overall, not complaining of a lot of pain. OBJECTIVE: Left lower extremity exam: Wound VAC is in place. Swelling of the leg looks great. Not a lot of tenderness to palpation to the calf. Wound VAC is to about 75 mm of suction. ASSESSMENT: Status post left guillotine amputation of the leg. PLAN: The plan is for Ms. Whaet to keep the wound VAC on over the weekend. She will continue to receive IV antibiotics, and will plan on a definitive rtmht-uec-ozog amputation on 11/25/2016. She will need to be n.p.o. after midnight Friday night. cc: Lewis Benites MD
[2016-11-22] MEDS ORDERED: HEPARIN ONE (09:06)
[2016-11-22] MEDS ORDERED: NS 2,000 ML ONE (09:06)
--- NOTE | 2016-11-22 09:08 | PROGRESS NOTE ---
DATE: 11/22/2016 SUBJECTIVE: She is feeling okay today. Her pain is better than yesterday. No nausea or vomiting, but very little p.o. intake. She has not had a bowel movement in several days. OBJECTIVE: Vital Signs: Blood pressure 125/64, heart rate 72, respirations 18, afebrile. General: She is in no acute distress. Skin: Warm and dry. HEENT: Conjunctivae are pink. Neck: Neck veins are not distended. Heart: Regular with S4. Lungs: Equal breath sounds. No crackles or wheezes. Abdomen: Soft, nontender. Bowel sounds present. Extremities: No edema, clubbing, or cyanosis. LABORATORY DATA: Sodium 139, potassium 4.8, chloride 97, bicarbonate 30, BUN 26, creatinine 6.8. Hemoglobin 7.6. IMPRESSION: 1. End-stage kidney disease. She will have her routine scheduled dialysis treatment today using a 2-potassium bath. Will target 1 kg below her most recent weight. 2. Electrolytes/acid base in target. 3. Anemia. Hemoglobin has fallen with acute blood loss following surgery. Will transfuse 2 units on dialysis today. cc: Emilio Chadwick MD
[2016-11-22] MEDS ORDERED: DILAUDID ONE (12:04)
[2016-11-22] MEDS: CATAPRES PO SCH ×3 (13:37→17:26)
[2016-11-22] MEDS: HEPARIN SUBQ SCH ×2 (13:41→22:05)
[2016-11-22] MEDS: FOLIC ACID PO SCH (13:41)
[2016-11-22] MEDS: PROCARDIA ER PO SCH (13:41)
[2016-11-22] MEDS: PRINIVIL PO SCH ×2 (13:41→22:04)
[2016-11-22] MEDS: PHENERGAN IV PRN (13:56)
--- NOTE | 2016-11-22 15:09 | PROGRESS NOTE ---
DATE: 11/22/2016 SUBJECTIVE: Patient reports feeling fine. She is still complaining of mild pain in the left leg. Denies any fever, chills, vomiting. OBJECTIVE: Vital signs: Temperature 96.4 degrees, heart rate 73, respiratory rate 18, blood pressure 183/92, O2 saturation 100% on room air. General: This is a chronically ill-looking 41- year-old female lying in bed, in no acute distress. HEENT: Head is normocephalic, atraumatic. Neck: Supple. No JVD noted. No carotid bruits. Cardiovascular: S1, S2 heard. No murmurs, gallops, or rubs. Regular rate and rhythm. Respiratory: Clear bilaterally to auscultation. No work of breathing or using accessory muscles. Abdomen: Soft, nontender to palpation. No organomegaly. Extremities: She had bilateral upper extremity amputations and old right lower extremity amputation and she got an amputation in the left lower extremity with a wound VAC placed. Neurological: Patient alert and oriented x3. Moves 4 extremities. LABORATORY DATA: White cell count 7.3, hemoglobin 7.6, hematocrit 35.1. Platelets 458,000 with BMP remarkable for creatinine 6.8, BUN 26. ASSESSMENT: 1. Left diabetic foot infection, status post amputation of the left leg. That surgery was performed [address] Benites from Orthopedics is planning to complete qjjct-ceb-ccun amputation next Friday. We will follow recommendations. 2. Possible bacteremia. Dr. Culp is following this patient. Currently, she is on cefepime and vancomycin. We will continue with the same management. 3. End-stage renal disease on dialysis. Dr. Chadwick is following this patient and she is receiving her usual dialysis here in the hospital. 4. Uncontrolled hypertension. Although yesterday the blood pressure was better controlled, today the 1st hours of the morning it was really high in the range of 170 and 180. At this time, I prefer to increase the doses of hydralazine from 50 mg 3 times per day to 100 mg twice daily. We will see how this patient does. 5. Cerebrovascular accident, peripheral vascular disease. Aware. 6. Deep vein thrombosis prophylaxis. Patient is on heparin. cc: Cali Mccormick MD
[2016-11-22] MEDS ORDERED: MAXIPIME 1 GM in NS 50 ML IV SCH (15:53)
--- NOTE | 2016-11-22 16:22 | PROGRESS NOTE ---
DATE: 11/22/2016 SUBJECTIVE: I have ordered to stop the patient's antibiotics consisting of vancomycin and cefepime on Friday, 11/216, at 1600. I am signing off the patient's case now. I am available to see her on a p.r.n. basis. cc: Pieter Culp MD [facility]
[2016-11-22] MEDS ORDERED: MAXIPIME 1 GM in D5W 50 ML IV ONE (17:00)
[2016-11-22] MEDS ORDERED: VANCOMYCIN 1 GM/NS 1 GM/250 ML IVPB IV ONE (18:00)
[2016-11-22] MEDS: APRESOLINE PO SCH (22:04)
[2016-11-23] MEDS: DILAUDID IV PRN ×6 (02:36→23:59)
[2016-11-23 06:33] LABS: HEMOGLOBIN 10.1 g/dL (12.0-16.0); MCH 28.9 PG (27-31); MCHC 31.6 g/dL (33-37); MCV 91.7 FL (81-99); MPV 9.9 FL (7.4-10.4); RBC 3.49 XMIL (4.2-5.4)
[2016-11-23] MEDS: HUMULIN R SUBQ SCH ×4 (06:42→17:53)
[2016-11-23 06:48] LABS: ALBUMIN 2.8 g/dL (3.5-5.0); CALCIUM 8.8 mg/dL (8.8-10.2); POTASSIUM 4.4 mmol/L (3.5-5.1)
[2016-11-23] MEDS: CATAPRES PO SCH ×3 (09:21→17:53)
[2016-11-23] MEDS: PRINIVIL PO SCH ×2 (09:21→21:23)
[2016-11-23] MEDS: APRESOLINE PO SCH ×2 (09:22→21:24)
[2016-11-23] MEDS: FOLIC ACID PO SCH (09:22)
[2016-11-23] MEDS: PROCARDIA ER PO SCH (09:23)
[2016-11-23] MEDS: HEPARIN SUBQ SCH ×2 (09:23→21:24)
[2016-11-23] MEDS: NORCO-7.5 PO PRN (09:59)
[2016-11-23] MEDS: PHENERGAN IV PRN ×2 (09:59→19:02)
[2016-11-23] MEDS: NORCO-10 PO PRN (21:22)
[2016-11-23] MEDS: ZOFRAN IV PRN (21:24)
[2016-11-24] MEDS: HUMULIN R SUBQ SCH ×5 (00:24→23:56)
[2016-11-24] MEDS: ZOFRAN IV PRN (03:39)
[2016-11-24] MEDS: DILAUDID IV PRN ×5 (04:15→23:39)
[2016-11-24 07:13] LABS: HEMATOCRIT 31.6 % (37.0-47.0); HEMOGLOBIN 9.9 g/dL (12.0-16.0); MCH 29.6 PG (27-31); MCHC 31.3 g/dL (33-37); MCV 94.6 FL (81-99); MPV 10.1 FL (7.4-10.4); RBC 3.34 XMIL (4.2-5.4)
[2016-11-24 07:34] LABS: ALBUMIN 2.7 g/dL (3.5-5.0); CALCIUM 8.9 mg/dL (8.8-10.2); POTASSIUM 5.1 mmol/L (3.5-5.1)
--- NOTE | 2016-11-24 08:21 | PROGRESS NOTE ---
DATE: 11/24/2016 SUBJECTIVE: Ms. Wheat is lying in bed this morning. Spirits are actually up pretty good. Her 2 sisters are in the room. She is feeling okay. OBJECTIVE: Left lower extremity exam: The leg is nice and supple. There is not a lot of edema at all through the leg anymore. Wound VAC is intact. No tenderness to palpation at all to the calf for leg. ASSESSMENT: Left Charcot infected ankle status post guillotine nmfqz-its-cvth amputation. PLAN: Plan is for definitive nxqfc-xvb-zehq amputation tomorrow. Ms. Wheat will be nothing to eat or drink after midnight tonight. I went over with her the procedure, risks, benefits, potential complications. Risks include, but are not limited to, infection, wound healing problems, damage to nerves, arteries, veins, phantom limb pain, stump pain, DVT, and anesthesia related risks. After discussing these she expressed understanding and wished to proceed. We will plan on definitive BKA tomorrow. cc: Lewis Benites MD
[2016-11-24] MEDS: HEPARIN SUBQ SCH ×2 (10:03→23:40)
[2016-11-24] MEDS: PHENERGAN IV PRN ×3 (10:04→18:41)
[2016-11-24] MEDS: SODIUM CHLORIDE 0.9% INJ PRN ×3 (10:04→18:41)
[2016-11-24] MEDS: FOLIC ACID PO SCH (10:04)
[2016-11-24] MEDS: PROCARDIA ER PO SCH (10:04)
[2016-11-24] MEDS: PRINIVIL PO SCH ×2 (10:04→23:40)
[2016-11-24] MEDS: APRESOLINE PO SCH ×2 (10:05→23:40)
[2016-11-24] MEDS: CATAPRES PO SCH ×3 (10:05→18:41)
--- NOTE | 2016-11-24 14:38 | PROGRESS NOTE ---
DATE: 11/24/2016 SUBJECTIVE: The patient reports feeling fine. We had made some changes to her pain medications yesterday, and she is doing okay today. OBJECTIVE: Vital Signs: Temperature 98.9, heart rate 60, respiratory 16, blood pressure 174/82, O2 saturation 100% on room air. General: This is a chronically ill-looking, 41-year-old, female lying in bed, in no acute distress. HEENT: Head is normocephalic, atraumatic. Neck: Supple. No JVD noted. No carotid bruits. Cardiovascular: S1, S2 heard. No murmurs, gallops, or rubs. Regular rate and rhythm. Respiratory: Clear bilaterally to auscultation. No work of breathing or using accessory muscles. Abdomen: Soft, nontender to palpation. Bowel sounds present. No organomegaly. Extremities: Bilateral upper extremity amputation, all right lower extremity amputation. She had an amputation of the left lower extremity with a wound VAC placed. Neurological: The patient alert and oriented x3. Moves 4 extremities. LABORATORY DATA: Reviewed. ASSESSMENT AND PLAN: 1. Left diabetic foot infection, status post amputation of the left leg. Dr. Benites, from Orthopedics, had evaluated this patient this morning and he explained to her about the procedure to complete the left knee amputation tomorrow. The patient agreed to proceed. We appreciate his help. For infection, Dr. Culp has been following this patient. The patient is on cefepime and vancomycin. Dr. Culp has indicated in his progress note that after the procedure is done, we have to stop vancomycin and cefepime. He has signed off already. 2. End-stage renal disease, on dialysis. The patient receiving her usual dialysis in the hospital. Dr. Chadwick is following this patient. 3. Uncontrolled hypertension. Blood pressure is, most of the time, well-controlled, but sometimes the blood pressure reaches 180 and sometimes it is 100. At this point, I prefer to continue with the same management. Yesterday we had increased the doses of hydralazine to 100 p.o. b.i.d. We will continue with the same management. 4. Acute cerebrovascular accident. Aware. 5. Peripheral vascular disease. Aware. 6. Deep vein thrombosis prophylaxis. The patient is on heparin. cc: Cali Mccormick MD
--- NOTE | 2016-11-24 16:09 | PROGRESS NOTE ---
DATE: 11/23/2016 SUBJECTIVE: Patient complaining of back pain. She denies any fever or chills. OBJECTIVE: Vital Signs: Temperature 98.1 degrees, heart rate 77, respiratory 19 , blood pressure 151/72. O2 saturation 100% on room air. General: This is a chronically ill- looking 41-year-old -[place] female lying in bed in no acute distress. HEENT: Head is normocephalic and atraumatic. Neck supple. No JVD noted. No carotid bruits. Cardiovascular: S1 , S2 heard. No murmurs, gallops, or rubs. Regular rate and rhythm. Respiratory: Clear bilaterally to auscultation. No work of breathing or using accessory muscles. Abdomen: Soft, nontender to palpation. No organomegaly. Extremities: Bilateral upper extremity amputation , all right lower extremity amputation, and she got a knee amputation of the left lower extremity with a wound VAC placed. Neurologic: Patient is alert and oriented x3. Moves 4 extremities. LABORATORY DATA: Reviewed. ASSESSMENT AND PLAN: 1. Left diabetic foot infection, status post amputation of the left leg. Dr. Benites from Orthopedics is going to complete the alsaa-pui-hpwk amputation next Friday. The patient will be placed on n.p.o. tomorrow. 2. Possible bacteremia. Dr. Culp has been following this patient but, because [id number]-tys-ipkw will be completed today, he ordered to stop antibiotics after surgery. He has signed off. 3. End-stage renal disease, on dialysis. Patient receiving usual dialysis here in the hospital. 4. Uncontrolled hypertension. Now, blood pressure is much better. We will continue with the same management. 5. History of cerebrovascular accident, aware. 6. Peripheral vascular disease, aware. 7. Deep vein thrombosis prophylaxis, on heparin. cc: Cali Mccormick MD [facility]
[2016-11-25] MEDS: DILAUDID IV PRN ×3 (03:42→20:00)
[2016-11-25 06:03] LABS: HEMATOCRIT 31.3 % (37.0-47.0); HEMOGLOBIN 9.8 g/dL (12.0-16.0); MCH 29.9 PG (27-31); MCHC 31.3 g/dL (33-37); MCV 95.4 FL (81-99); MPV 10.1 FL (7.4-10.4); RBC 3.28 XMIL (4.2-5.4)
[2016-11-25] MEDS: HUMULIN R SUBQ SCH ×4 (06:13→22:24)
[2016-11-25 06:19] LABS: ALBUMIN 2.7 g/dL (3.5-5.0); CALCIUM 8.8 mg/dL (8.8-10.2); POTASSIUM 5.6 mmol/L (3.5-5.1)
[2016-11-25] MEDS ORDERED: HEPARIN IV PRN (07:25)
[2016-11-25] MEDS ORDERED: TIGHT: 0.2 ML/HR MISC PRN (07:25)
[2016-11-25] MEDS ORDERED: NS 2,000 ML MISC PRN (07:25)
[2016-11-25] MEDS ORDERED: MARCAINE 0.5% ONE (07:46)
[2016-11-25] MEDS ORDERED: XYLOCAINE 1% ONE (07:46)
[2016-11-25] MEDS ORDERED: DIPRIVAN 1% ONE (09:03)
[2016-11-25] MEDS ORDERED: ROBINUL ONE (09:04)
[2016-11-25] MEDS ORDERED: KEFZOL 1 GM/D5W 1 GM/50 ML IVPB ONE (09:32)
[2016-11-25] MEDS: DILAUDID ONE ×4 (11:38→11:55)
--- NOTE | 2016-11-25 12:19 | PROGRESS NOTE ---
DATE: 11/25/2016 SUBJECTIVE: Ms. Wheat is resting quietly in bed. She denies any pain. States that she is due to go have repair surgery of her right lower extremity. She has been NPO. OBJECTIVE: Her most recent vital signs: Last temperature 97.8 degrees, blood pressure 119/58, heart rate 71, respirations 16. She is on room air. Last recorded saturation 95%. She has had 0 recorded in. She has had 700 mL out per void. LABS: Sodium 139, potassium 5.6, chloride 97, CO2 29, BUN 38, creatinine 7.9, glucose 83. Anion gap 29, calcium 8.8, phosphorus 7.1, albumin 2.7. White count 8.04, hemoglobin 9.8, hematocrit 31.3 with a platelet count of 391,000. PHYSICAL EXAMINATION: General: This is a 41-year-old female. She is currently resting in bed. She is in no acute distress. Her pain is controlled. Skin: Warm and dry. HEENT: Normocephalic, atraumatic. Conjunctivae are pale. She has ROSA MARIA. Mucous membranes are dry. Neck: Supple. Trachea midline. No JVD. Cardiovascular: Regular rate and rhythm. She has a positive S4. Lungs: Clear to auscultation anteriorly. Equal excursion. She remains on room air. Abdomen: Round, soft, nontender. Positive bowel sounds. Genitourinary: Not inspected. Minimal void with dialysis assist. Extremities: Patient has bilateral upper and lower extremity amputations. She has a vacuum to her right lower extremity. She has no sacral or peripubertal swelling. Neurological: She is alert and oriented x3. ASSESSMENT AND PLAN: 1. End-stage renal disease. Patient is due for her routine dialysis treatment today. We will place her on a 2 K bath. She is to dialyze for 3.5 hours. We will attempt to pull her to her last adjusted dry weight. 2. Electrolytes. These remain stable with mild hyperkalemia with correction on dialysis. 3. Acid-base balance. Patient continues with anion gap acidosis, again, with correction on dialysis. 4. Anemia. This remains low but stable. 5. Infected diabetic ulcer on her right foot. Patient has had right below knee amputation. This is followed by Dr. Benites. No indications for intervention. She is to go to surgery today for further repair of her incision. I would to thank you for allowing us to follow with this patient. Dictated by PHILL Daniel for Emilio Chadwick MD Patient seen, data reviewed, discussed with Krista Boggs on 11/25/16. I agree with the above assessment and plan of care. cc: PHILL Daniel MD [facility]
[2016-11-25] MEDS ORDERED: NS 2,000 ML ONE (12:31)
[2016-11-25] MEDS ORDERED: HEPARIN ONE (12:31)
--- NOTE | 2016-11-25 13:02 | PROGRESS NOTE ---
DATE: 11/25/2016 SUBJECTIVE DATA: Ms. Wheat is lying in bed, resting this morning. She is easily arousable. She answers questions appropriately. OBJECTIVE DATA: Left lower extremity exam: The wound VAC is still in place and secure. It is currently not to suction related to an error by the machine. In the carton there is serosanguineous drainage. There is no obvious drainage outside of the wound VAC area. There is no erythema. She has some mild edema but overall this looks good. No tenderness to palpation. 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 PLAN: Plans for definitive gjoqg-hkr-qptd amputation this morning. She has been NPO since midnight. She has had all her preop baths. We will plan to proceed with this today. Postoperatively she will be nonweightbearing on the left lower extremity. Dictated by PHILL Lei for Lewis Benites MD cc: PHILL Lei MD [facility]
[2016-11-25] MEDS ORDERED: DILAUDID ONE (14:02)
--- NOTE | 2016-11-25 15:29 | PROGRESS NOTE ---
DATE: 11/25/2016 SUBJECTIVE: Patient is feeling fine. Denies any pain. OBJECTIVE: Vital Signs: Temperature 98.1 degrees, heart rate 79, respiratory rate 18, blood pressure 112/73. O2 saturation 100% on room air. General: This is a chronically ill-looking, 41-year-old female, lying in bed in no acute distress. HEENT: Head is normocephalic, atraumatic. Neck: Supple. No JVD noted. No carotid bruits. No lymphadenopathy. No thyromegaly. Cardiovascular: S1, S2 heard. No murmurs, gallops, or rubs. Regular rate and rhythm. Respiratory: Clear bilaterally to auscultation. No work of breathing or using accessory muscles. Abdomen: Soft, nontender to palpation. Bowel sounds present. No organomegaly. Extremities: No clubbing, cyanosis, or edema. Peripheral pulses present in both legs. She had a bilateral upper extremity amputation. Also, she had a right lower extremity amputation as well. She had an amputation of the left lower extremity with wound VAC placed. Neurological: Patient alert and oriented x3. Moves 4 extremities. LABORATORY DATA: Reviewed. ASSESSMENT AND PLAN: 1. Left diabetic foot infection status post amputation of the leg. Dr. Benites from Orthopedics will complete fryzi-rbx-owqp amputation today. Antibiotics are going to be stopped as per Dr. Culp from Infectious Disease who was following this patient. 2. End-stage renal disease on dialysis. Patient is receiving the usual dialysis and Dr. Chadwick from Nephrology is following this patient. 3. Uncontrolled hypertension. Blood pressure is better controlled today. 4. History of CVA. Aware. 5. Peripheral vascular disease. Aware. 6. Deep vein thrombosis prophylaxis. Patient is on heparin. cc: Cali Mccormick MD
--- NOTE | 2016-11-25 15:52 | OPERATIVE NOTE ---
PROCEDURE DATE: 11/25/2016 PREOPERATIVE DIAGNOSIS: Left infected Charcot ankle, status post guillotine amputation. POSTOPERATIVE DIAGNOSIS: Left infected Charcot ankle, status post guillotine amputation. PROCEDURE PERFORMED: Left definitive eldye-xyo-enel amputation. SURGEON: Lewis Benites MD RISK CONSULTANT: PHILL Lei, who helped and was an integral part of the case. She helped with approach, hemostasis, flap closure, skin closure, and splinting. She helped with OR efficiency and decreased her OR time overall. ANESTHESIA: General with LMA. ESTIMATED BLOOD LOSS: 500 mL. SPECIMEN: Left lower leg. IMPLANTS: None. DISPOSITION: To PACU, hemodynamically stable. INDICATIONS FOR PROCEDURE: Ms. Kelsie Wheat is a 41-year-old female whom I have been following for some time in the wound center for this left foot and then she developed an ankle wound. She has had 3 other extremities amputated. We were actually thinking about reconstructing this left side. Unfortunately, however, while we were still waiting for that ankle wound to heal, she developed a big infection in that whole area and started draining a lot of pus out of there, so I discussed with her about amputation. She underwent a guillotine amputation this last week and then came back for definitive amputation today. I went over with her the procedure, risks, benefits, and potential complications, and she expressed understanding and wished to proceed. DESCRIPTION OF PROCEDURE: Ms. Wheat was identified in the preoperative holding area. The left leg was marked out as the correct surgical site. She was then wheeled to the operating room and placed supine on the operating table. All bony prominences were well padded. She was induced under general anesthesia. LMA was placed. A tourniquet was placed to the left thigh. The left lower extremity was prepped with Betadine solution and draped in normal sterile fashion. A surgical pause was performed. We identified the correct patient, the correct side, and the correct procedure. Preoperative antibiotics were given, IV Ancef. An Esmarch was used to exsanguinate the left lower extremity and the tourniquet was inflated to 300 mmHg. Unfortunately, because her vessels were so calcified, we only had a venous tourniquet, so it was only up for just a few minutes. We made a fishmouth-type incision. Dissection was carried down carefully and then hemostasis was obtained. Either via electrocautery or tying off vessels. We exposed the tibia and then the fibula. I then sawed through the tibia and fibula and then used an amputation knife to finish off the amputation. I then clamped all vessels with hemostats. I gained hemostasis and tied those off. We identified her nerves and we were able to resect them deep, including the sural nerve. I then debulked a little bit of that posterior muscular flap so that we were able to get good muscular flap closure over her tibia. Hemostasis was very good. There was no brisk bleeding anywhere. At this point then, we used 0 Vicryl and I was able to perform myodesis over the tibia, sewing that posterior muscular flap to that anterior deep fascia. I covered the bone really well. Before we covered the bone, I actually beveled that tibia down so that it was not prominent. We then performed deep fascial closure and then came back a little bit more superficial in the subcu area and then 2-0 Vicryl for the subcu and rakesh on the skin. We had a very nice flap overall. There were no big dog ears. Adaptic, 4 x 4's, ABD, soft roll, and a splint were applied to keep the knee straight and extended. The patient was then awoken from general anesthesia, moved to her own bed, and taken to the PACU in stable condition. Postoperatively, the patient will be nonweightbearing on the left lower extremity. She will be transferred back upstairs and I will see her in the morning. cc: Lewis Benites MD
[2016-11-25] MEDS ORDERED: VANCOMYCIN 1 GM/NS 1 GM/250 ML IVPB IV ONE (17:00)
[2016-11-25] MEDS ORDERED: MAXIPIME 1 GM in D5W 50 ML IV ONE (17:00)
[2016-11-25] MEDS: APRESOLINE PO SCH ×3 (17:27→22:23)
[2016-11-25] MEDS: CATAPRES PO SCH ×2 (17:30→17:48)
[2016-11-25] MEDS: HEPARIN SUBQ SCH ×2 (17:32→17:48)
[2016-11-25] MEDS: PRINIVIL PO SCH ×2 (17:45→22:23)
[2016-11-25] MEDS: FOLIC ACID PO SCH (17:48)
[2016-11-25] MEDS: PROCARDIA ER PO SCH (17:49)
[2016-11-25] MEDS: NORCO-10 PO PRN (22:42)
[2016-11-26] MEDS: DILAUDID IV PRN ×5 (00:50→20:00)
[2016-11-26 06:40] LABS: HEMATOCRIT 26.8 % (37.0-47.0); HEMOGLOBIN 8.3 g/dL (12.0-16.0); MCH 29.7 PG (27-31); MCV 96.1 FL (81-99); MPV 10.1 FL (7.4-10.4); RBC 2.79 XMIL (4.2-5.4)
[2016-11-26] MEDS: HEPARIN SUBQ SCH ×2 (06:40→17:18)
[2016-11-26] MEDS: HUMULIN R SUBQ SCH ×4 (06:41→23:46)
[2016-11-26 06:56] LABS: ALBUMIN 2.6 g/dL (3.5-5.0); CALCIUM 8.6 mg/dL (8.8-10.2); POTASSIUM 4.7 mmol/L (3.5-5.1)
--- NOTE | 2016-11-26 08:19 | PROGRESS NOTE ---
DATE: 11/26/2016 SUBJECTIVE: Ms. Wheat is lying in bed this morning. Overall feeling okay. OBJECTIVE: Left lower extremity exam, splint is clean, dry, and intact. ASSESSMENT: Status post left wzwvd-ake-hysg amputation. PLAN: I think Ms. Wheat is doing well overall. More than likely take the splint down in just a few days. Take a look at everything and then she will probably be ready to go back to her rehab facility at that point. cc: Lewis Benites MD
[2016-11-26] MEDS: CATAPRES PO SCH ×3 (08:52→17:11)
[2016-11-26] MEDS: PROCARDIA ER PO SCH (08:52)
[2016-11-26] MEDS: APRESOLINE PO SCH ×2 (08:53→20:00)
[2016-11-26] MEDS: PRINIVIL PO SCH ×2 (08:53→20:00)
[2016-11-26] MEDS: FOLIC ACID PO SCH (08:53)
[2016-11-26] MEDS: ZOFRAN ODT PO PRN (10:25)
--- NOTE | 2016-11-26 14:10 | PROGRESS NOTE ---
DATE: 11/26/2016 SUBJECTIVE: Ms. Wheat is resting quietly in bed. Her nurse is at her bedside. She denies any pain at this time. OBJECTIVE: Her most recent vital signs are temperature 98.2 degrees, blood pressure 127/66, heart rate 75, respirations 17. She remains on room air. Last recorded saturation 99 %. She has had 660 in. She has had 500 mL pulled on dialysis yesterday. LABORATORIES: Sodium 137, potassium 4.7, chloride 96, CO2 29, BUN 24, creatinine 5.2, glucose 70, anion gap 12, calcium 8.6, phosphorus 5.5, albumin 2.6. White count 9.89, hemoglobin 8.3, hematocrit 26.8, with a platelet count of 340,000. PHYSICAL EXAMINATION: General: This is a 41-year-old, female. She is resting quietly in bed. She is in no acute distress. She does appear chronically ill. Skin: Warm and dry. HEENT: Normocephalic, atraumatic. Conjunctiva is pale. She has ROSA MARIA. Mucous membranes are dry. Neck: Supple. Trachea midline. No JVD. Cardiovascular: She has regular rate and rhythm. She does have a positive S4. Lungs: Clear to auscultation anteriorly. Equal excursion on room air. Abdomen: Soft, nontender. Positive bowel sounds. Genitourinary : Not inspected. Minimal void with dialysis assist. Extremities: Bilateral BKA with amputations , below the elbow to both upper extremities. She has a dressing to her right lower extremity secondary to surgical repair yesterday. She has no swelling noted. Neurological: She is alert and oriented x3. ASSESSMENT AND PLAN: 1. End-stage renal disease. The patient is due for her routine dialysis treatment in the a.m. No indications for intervention today. 2. Electrolytes and acid-base balance. These remain stable. 3. Anemia. This remains low, but stable. 4. Infected diabetic foot, status post surgical repair per Dr. Benites. I would like to thank you for allowing us to follow with this patient. Dictated by PHILL Daniel for Emilio Chadwick MD Patient seen, data reviewed, discussed with Krista Boggs on 11/26/16. I agree with the above assessment and plan of care. cc: PHILL Daniel MD [facility]
[2016-11-26] MEDS: SANTYL OINT TOP SCH (17:18)
[2016-11-27] MEDS: DILAUDID IV PRN ×5 (00:58→21:05)
[2016-11-27] MEDS ORDERED: HEPARIN IV PRN (05:12)
[2016-11-27] MEDS ORDERED: TIGHT: 0.2 ML/HR MISC PRN (05:12)
[2016-11-27] MEDS ORDERED: NS 2,000 ML MISC PRN (05:12)
[2016-11-27] MEDS: HEPARIN SUBQ SCH ×2 (05:36→17:47)
[2016-11-27] MEDS: HUMULIN R SUBQ SCH ×4 (06:57→21:06)
--- NOTE | 2016-11-27 08:26 | PROGRESS NOTE ---
DATE: 11/26/2016 SUBJECTIVE: The patient reports feeling fine. Mild pain around the surgical area reported. OBJECTIVE: Vital Signs: Temperature 98.4 degrees, heart rate 82, respiratory 17, blood pressure 133/69, and O2 saturation 98% on room air. General: This is a chronically ill-looking, 41-year- old -[place] female lying in bed in no acute distress. HEENT: Head is normocephalic and atraumatic. Neck is supple. No JVD. No carotid bruits. Cardiovascular: S1, S2 heard. No murmurs, gallops, or rubs. Regular rate and rhythm. Respiratory: Clear bilaterally to auscultation. No work of breathing or using accessory muscles. Abdomen: Soft, nontender to palpation. Bowel sounds present. No organomegaly. Extremities: No clubbing, cyanosis, or edema. Peripheral pulses present in both legs. Neurological examination: The patient is alert and oriented x3, moves all 4 extremities. Extremities: She had a bilateral upper lower amputation. She also had a right extremity amputation as well. She had a left znpaq-cot-wsxc amputation. Neurological Exam: Patient is alert and oriented x3. Moves 4 extremities. LABORATORY DATA: Reviewed. ASSESSMENT AND PLAN: 1. Left diabetic foot infection, status post amputation, status post left dcysh-bmi-urjy amputation. Dr. Benites from Orthopedics has performed this procedure today. has been stopped per Dr. Culp. At this point, we are following the Orthopedist's recommendations and will keep this patient here in the hospital Dr. Benites considers necessary. 2. End-stage renal disease, on dialysis. The patient receiving her usual dialysis. Dr. Chadwick is following. 3. Uncontrolled hypertension. Blood pressure is much better. We will continue with the same management. 4. Peripheral vascular disease, aware. 5. Deep vein thrombosis prophylaxis, on heparin. cc: Cali Mccormick MD
--- NOTE | 2016-11-27 08:44 | PROGRESS NOTE ---
DATE: 11/27/2016 SUBJECTIVE DATA: Ms. Wheat is currently lying in bed, in dialysis. She is tolerating it well. She states she is having some mild pain of the left stump but nothing too bad. OBJECTIVE DATA: Left lower extremity exam: Splint is clean, dry, and intact. ASSESSMENT: Status post left qpipl-jwk-ynth amputation. PLAN: I think overall Ms. Wheat is doing really well. More than likely I think we will take the splint down tomorrow, take a look at everything, make sure everything is closed down well and is healing, and there are no signs of infection. At that point, I think we will be ready to get her back into a rehab facility. Dictated by PHILL Lei for Lewis Benites MD cc: PHILL Lei MD
[2016-11-27] MEDS: CATAPRES PO SCH ×3 (09:50→17:47)
[2016-11-27] MEDS: APRESOLINE PO SCH ×2 (09:51→21:05)
[2016-11-27] MEDS: PROCARDIA ER PO SCH (09:51)
[2016-11-27] MEDS: PRINIVIL PO SCH ×2 (09:51→21:04)
[2016-11-27] MEDS: SANTYL OINT TOP SCH (09:52)
[2016-11-27] MEDS: FOLIC ACID PO SCH (09:52)
--- NOTE | 2016-11-27 11:51 | PROGRESS NOTE ---
DATE: 11/27/2016 SUBJECTIVE: Ms. Wheat is resting quietly in bed. She is on hemodialysis. She is tolerating this well, though, she does complain of some sacral discomfort. VITAL SIGNS: Temperature 97.9 degrees, blood pressure 87/59, heart rate 75, respirations are 18. She is on room air. Last recorded saturation is 98% to 99%. LABS: Currently pending. Previous potassium 4.6, previous hemoglobin 8.9. PHYSICAL EXAMINATION: General: This is a 41-year-old female. She is resting quietly in bed. She is in no acute distress. She is on hemodialysis. She is tolerating this well. She appears chronically ill. Skin: Warm and dry. HEENT: Normocephalic , atraumatic. Conjunctivae pale. She has ROSA MARIA. Mucous membranes are moist. Neck: Supple. Trachea midline. No JVD. Cardiovascular: Regular rate and rhythm. She has a soft murmur. Lungs: Clear to auscultation anteriorly. Equal excursion. She is on room air. Abdomen: Round , soft, nontender. Positive bowel sounds. Genitourinary: Not inspected. Minimal void with dialysis assist. Extremities: Patient has bilateral BKA; and below the elbow bilateral to upper extremities she has trace sacral edema today. Dressing remains intact to the right lower extremity as noted. Integumentary: As mentioned above without rashes or lesions. Neurological: Alert and oriented x3. ASSESSMENT AND PLAN: 1. End-stage renal disease. Patient is due for her routine dialysis treatment today. She is currently on a 2 K bath. She is to dialyze for 3.5 hours. We will attempt to pull patient to her last post dry weight. 2. Electrolytes and acid-base balance. These remain stable with correction on dialysis. 3. Anemia. This remains low but stable. 4. Diabetic foot with new amputated right lower extremity. This is followed by primary care along with surgery. She remains on renal-dosed antibiotics. I would to thank you for allowing us to follow with this patient. Dictated by PHILL Daniel for Emilio Chadwick MD Patient seen, data reviewed, discussed with Krista Boggs on 11/27/16. I agree with the above assessment and plan of care. cc: Donna PHILL Horowitz MD [facility]
--- NOTE | 2016-11-27 15:30 | PROGRESS NOTE ---
DATE: 11/27/2016 SUBJECTIVE: She presented with a left diabetic foot infection. A 41-year-old, past medical history end-stage renal disease, on hemodialysis. Uncontrolled hypertension, diabetes mellitus, coronary artery disease, status post bilateral upper extremity amputation and right lower extremity amputation. She was sent by her orthopedic surgeon for admission. Presented with redness, swelling, secretions coming from her left ankle at the level of lateral malleolus. It was pus-like secretions, strong odor. She had some deformity. I think these symptoms presented about a week and a half before and her doctor recommended admission transferred to [facility]. The patient begun on antibiotics. She had a lower extremity MRI on 11/15. Possibility of focal osteomyelitis distal tibia, distal fibula, tarsal navicular, calcaneus and fragments of the talus could not be excluded. Dr. Culp was consulted. She had 2 positive blood cultures for gram-positive cocci. She had surgery on 11/25/2016. Left infected Charcot ankle, status post guillotine amputation. She she says she does not feel very good. She is awake and alert. She says the main thing is pain. OBJECTIVE: Vital signs: Temperature 98.6 degrees, pulse 83, respirations 20, blood pressure 100/41. Neck: No distended neck veins. Lungs: She is breathing comfortably. Lungs are clear anterolateral. Cardiovascular: Regular rhythm and rate without murmur or S3. Abdomen: Soft. Skin: Warm and dry. INPUT AND OUTPUT: Good urine output, was over a liter, there was a recording from yesterday. On 11/25 she had 1400 out. Yesterday I guess 320 mL. Today over a liter. LABORATORY: Reviewed from yesterday. Hemoglobin hemoglobin is 8.3, hematocrit 26. Electrolytes: Sequential sugars 120, 67, 82 and 118. Last electrolytes were on 11/25/2016 at which time potassium was 5.6. Phosphorus was 7.1. ASSESSMENT AND PLAN: 1. Left diabetic foot infection, status post guillotine amputation. Status post left below-the- knee amputation. Dr. Benites for Orthopedics performed the procedure. Leg is wrapped. Continue present antibiotics. 2. End-stage renal disease, on hemodialysis. Volume status appears to be doing well. 3. Electrolytes, acid-base stable. I will follow her. 4. Anemia of chronic disease. I also suspect she had some blood loss anemia from her surgery. May require some blood. 5. Peripheral vascular disease. 6. Diabetes mellitus. cc: Isai Stallworth MD
[2016-11-27] MEDS: ZOFRAN ODT PO PRN (23:06)
[2016-11-27] MEDS: NORCO-10 PO PRN (23:06)
[2016-11-28] MEDS: DILAUDID IV PRN ×4 (02:19→14:45)
[2016-11-28] MEDS: HEPARIN SUBQ SCH (06:32)
[2016-11-28] MEDS: HUMULIN R SUBQ SCH ×2 (06:33→11:25)
[2016-11-28 08:15] VITALS: BP 152/72
--- NOTE | 2016-11-28 09:54 | PROGRESS NOTE ---
DATE: 11/28/2016 SUBJECTIVE: Ms. Wheat is lying in bed this morning. She seems to be doing okay. OBJECTIVE: Left lower extremity: We took her splint down today. Her stump looks great. There is no drainage out of it. Not a lot of tenderness there. Incision looks really good. ASSESSMENT: Status post left glnzw-rsb-qcem amputation. PLAN: I think Ms. Wheat is doing well. Everything is looking good on the stump part. I am okay with her being discharged from the hospital from an orthopedic standpoint, and I will see her in about a week in clinic. cc: Lewis Benites MD
[2016-11-28] MEDS: PRINIVIL PO SCH (10:12)
[2016-11-28] MEDS: PROCARDIA ER PO SCH (10:12)
[2016-11-28] MEDS: SANTYL OINT TOP SCH (10:12)
[2016-11-28] MEDS: APRESOLINE PO SCH (10:13)
[2016-11-28] MEDS: CATAPRES PO SCH (10:13)
[2016-11-28] MEDS: FOLIC ACID PO SCH (10:13)
--- NOTE | 2016-11-28 12:30 | DISCHARGE SUMMARY ---
ADMISSION DATE: 11/14/2016 DISCHARGE DATE: 11/28/2016 HISTORY AND HOSPITAL COURSE: This is a 41-year-old female with a past medical history of end-stage renal disease on hemodialysis routinely, uncontrolled hypertension, diabetes mellitus type 2, coronary artery disease, status post bilateral upper extremity amputation and lower extremity amputation, and sent by orthopedic surgeon for admission. She presented with redness, swelling, and secretions coming from her left ankle, the level of the lateral malleolus. Found to have osteomyelitis with pus drainage and required initially on 11/20 a left guillotine srqoz-tqv-kqbe amputation. She then on 11/25/2016 had a left definitive iidks-fuf-mbuq amputation. She has recovered well. Volume status and electrolytes look good. Still on dialysis. Watching her blood sugars. [place] she was ready to go to rehab or back to the long-term on 11/28/2016. DISCHARGE MEDICATIONS: She will be on clonidine 0.2 mg p.o. t.i.d., Santyl oil or collagenase which they apply topically, folic acid 1 mg a day. She is on Apresoline 100 mg b.i.d. She gets [place] 10 q.4 hours p.r.n. pain. She will be checking pattern sugars, sliding scale. Prinivil 40 mg p.o. b.i.d., Procardia 60 mg daily. cc: Isai Stallworth MD
[2016-11-28] MEDS: PHENERGAN IV PRN (14:45)
--- NOTE | 2016-11-28 16:28 | PROGRESS NOTE ---
DATE: 11/28/2016 TIME SEEN: 07. SUBJECTIVE: Ms. Wheat is resting quietly in bed. Head of the bed is elevated. She is denying chest pain or increased work of breathing. She denies any pain to her left lower extremity. OBJECTIVE: Her most recent vital signs: Last temperature 99.1 degrees, blood pressure 131/79, heart rate 70, respirations 18. She is on room air. Last recorded saturation is 96%. She has had 450 In. She has had 2.3 L removed on dialysis. LABORATORY DATA: Labs drawn yesterday with the last potassium of 4.7. Previous hemoglobin of 8.3 on 11/26/2016. PHYSICAL EXAMINATION: General: This is a 41-year-old -[place] female. She is resting quietly in bed. She is in no acute distress. Her skin is warm and dry. HEENT: Normocephalic, atraumatic. Conjunctivae pale. She has ROSA MARIA. Mucous membranes are dry. Neck is supple. Trachea in midline. No JVD. Cardiovascular: She has regular rate and rhythm. She has a soft murmur. No gallop. Lungs are clear to auscultation anteriorly. Equal excursion. She is on room air. Abdomen is soft, nontender. Positive bowel sounds. Extremities: She has bilateral elbow amputations. She has bilateral tlzfm-nkb-zkph amputations with dressing to the left dry and intact. No shadow drainage noted. Genitourinary: Not inspected. Minimal void with dialysis assist. Neurological: She is alert and oriented x4. ASSESSMENT AND PLAN: 1. End-stage renal disease. Patient is due for her routine dialysis treatment in the a.m. No indications for intervention today. From our perspective, the patient is able to follow up on her routine dialysis treatments when discharged. 2. Electrolytes and acid-base balance. These remain stable. 3. Anemia. This has been low. We will check a CBC in the a.m. 4. Diabetic foot amputation to the lower left. This is followed by surgery and primary care team. I would to thank you for allowing us to follow with this patient. Dictated by PHILL Daniel for Emilio Chadwick MD Patient seen, data reviewed, discussed with Krista Boggs on 11/28/16. I agree with the above assessment and plan of care. cc: PHILL Daniel MD [facility]
== END 2016-11-28 16:05 ==
LOC: DIRADM 16:27 → SUATTDRO 16:27 → 3N 16:56
PROVIDERS: ATTEND Emergency Medicine